=== PATIENT | male | born 1955 | race Caucasian/White ===

== ENCOUNTER → 2017-07-15 | Outpatient (CLI) | payer MEDICARE ==
--- NOTE | 2017-07-15 18:10 | RAD ---
3 views left knee radiographs 07/15/2017 Clinical indication: Left knee pain. Comparison: None. Findings: No acute fracture or traumatic malalignment. Moderate medial and mild lateral joint compartment osteophytic spurring with no significant joint space narrowing. No significant knee joint effusion. There is a small smoothly marginated calcific density at the anterior aspect of the knee articulation measuring 0.7 cm. Impression: 1. No acute fracture or traumatic malalignment. 2. Small 0.7 cm calcific density anterior aspect of the knee joint may represent an intra-articular body. 3. Degenerative changes of the knee, greatest mild to moderate, medial joint compartment
== END | disposition still patient (30) ==
LOC: RAD 14:09
PROVIDERS: ATTEND Nurse Practitioner Gerontology
DX: M17.12 Unilateral primary osteoarthritis, left knee (principal)
CPT/HCPCS: 73562

== ENCOUNTER → 2018-06-19 | Outpatient (CLI) | payer MEDICARE ==
[~2018-06-19] VITALS: Ht 180.3 cm; Wt 104.3 kg
[~2018-06-19] MED LIST: BUDE10.22 IH; LOSA100T7 PO; PROAIR HFA8.5 GM INH; TIOT18CA IH; WARF10TA45 PO; WARF7.5T48 PO
[2018-06-19 11:24] LABS: BASO % 1 % (0-3); EOS # 0.1 x10^3/uL (0.0-0.7); EOS % 3 % (0-3); HEMATOCRIT 23.7 % (39.0-53.0); HEMOGLOBIN 7.6 g/dL (13.0-17.5); LYMPH # 1.4 x10^3/uL (1.0-4.8); LYMPH % 28 % (24-48); MEAN CORPUSCULAR HEMOGLOBIN 25 pg (25-35); MEAN CORPUSCULAR HGB CONC 32 g/dL (31-37); MEAN CORPUSCULAR VOLUME 76 fL (79-100); MONO # 0.5 x10^3/uL (0.0-1.1); MONO % 10 % (0-9); NEUT # 2.9 x10^3uL (1.8-7.7); NEUT % 59 % (31-73); PLATELET COUNT 435 x10^3/uL (140-400); RED BLOOD COUNT 3.12 x10^6/uL (4.30-5.70); RED CELL DISTRIBUTION WIDTH 16.9 % (11.5-14.5)
[2018-06-19 12:22] VITALS: BP 146/69
[2018-06-19 12:45] VITALS: BP 132/74
[2018-06-19 13:45] VITALS: BP 141/65
[2018-06-19 14:22] VITALS: BP 144/64
[2018-06-19 15:00] VITALS: BP 143/73
[2018-06-19 16:22] VITALS: BP 152/74
== END ==
LOC: OPS 10:38
PROVIDERS: ATTEND Internal Medicine Gastroenterology
DX: D64.9 Anemia, unspecified (principal); M19.90 Unspecified osteoarthritis, unspecified site
CPT/HCPCS: 36415; 36430; 85025; 86850; 86900; 86901; 86920; P9016

== ENCOUNTER → 2018-07-08 | Day surgery (SDC) | payer MEDICARE ==
[~2018-07-08] MED LIST changes: +HYDROmorphone 2 MG/ML VIAL IV PRN; +IV RINGERS,LACTATED 1000ML 1,000 ML IV SCH; +LIDOCAINE 1% PF 2 ML VIAL. ID PRN; +MORPHINE SULFATE 2 MG/ML VIAL. IV PRN; +ONDANSETRON PF 4 MG/2 ML VIAL. IV PRN; +PROCHLORPERAZINE 10 MG/2 ML VIAL. IV PRN; +PROPOFOL 20 ML IV ONE; +fentaNYL PF VIAL 100 MCG/2 ML VIAL IV PRN
[2018-07-08 09:21] VITALS: BP 163/81
== END | disposition home or self-care (01) ==
LOC: ENDOS 07:20
PROVIDERS: ATTEND Internal Medicine Gastroenterology
DX: K31.7 Polyp of stomach and duodenum (principal); D50.9 Iron deficiency anemia, unspecified; I10 Essential (primary) hypertension; E11.9 Type 2 diabetes mellitus without complications; K21.9 Gastro-esophageal reflux disease without esophagitis; E53.8 Deficiency of other specified B group vitamins; Z86.72 Personal history of thrombophlebitis; Z79.01 Long term (current) use of anticoagulants; E55.9 Vitamin D deficiency, unspecified; M17.0 Bilateral primary osteoarthritis of knee; Z87.01 Personal history of pneumonia (recurrent); Z86.718 Personal history of other venous thrombosis and embolism; Z86.711 Personal history of pulmonary embolism; Z87.442 Personal history of urinary calculi; Z87.891 Personal history of nicotine dependence; Z91.041 Radiographic dye allergy status; Z79.899 Other long term (current) drug therapy; Z79.84 Long term (current) use of oral hypoglycemic drugs; Z79.2 Long term (current) use of antibiotics; Z98.890 Other specified postprocedural states
CPT/HCPCS: 43235; J2704

== ENCOUNTER → 2018-07-28 | Outpatient (CLI) | payer MEDICARE ==
[2018-07-08 09:21] VITALS: BP 163/81
[~2018-07-28] MED LIST changes: -HYDROmorphone 2 MG/ML VIAL IV PRN; -IV RINGERS,LACTATED 1000ML 1,000 ML IV SCH; -LIDOCAINE 1% PF 2 ML VIAL. ID PRN; -MORPHINE SULFATE 2 MG/ML VIAL. IV PRN; -ONDANSETRON PF 4 MG/2 ML VIAL. IV PRN; -PROCHLORPERAZINE 10 MG/2 ML VIAL. IV PRN; -PROPOFOL 20 ML IV ONE; -fentaNYL PF VIAL 100 MCG/2 ML VIAL IV PRN
--- NOTE | 2018-07-28 15:39 | RAD ---
Left lower extremity arterial ultrasound, 07/28/2018: HISTORY: Left leg swelling and lower leg ulcer Duplex evaluation of the major arteries in the left lower extremity was performed including grayscale, color-flow and spectral Doppler analysis. There are mild to moderate scattered atherosclerotic plaques. The left common femoral artery demonstrates a triphasic Doppler waveform. No significant focal velocity acceleration is seen in the left femoral or popliteal arteries to suggest high-grade focal stenosis. At one level in the mid superficial femoral artery there are sharp parallel linear echoes suggesting a widely patent stent. The patient is unclear as to his interventional/surgical history. There is moderate subcutaneous edema medially in the left thigh and to a greater degree in the left calf. The anterior tibial artery is patent demonstrating a triphasic Doppler waveform. Patent peroneal and posterior tibial arteries are evident in the right lower leg demonstrating monophasic Doppler waveforms. The dorsalis pedis artery is patent with a monophasic Doppler waveform. IMPRESSION: 1. Mild to moderate scattered atherosclerotic plaquing. 2. No duplex evidence of high-grade femoral-popliteal stenosis. 3. Three-vessel arterial runoff in the left lower leg with mild degradation of the Doppler waveforms in the left calf and foot. Electronically signed by: Xander Vladez MD (07/28/2018 3:35 PM) [facility]
--- NOTE | 2018-07-28 15:46 | RAD ---
Left lower extremity venous insufficiency ultrasound, 07/28/2018: HISTORY: Leg swelling Duplex evaluation of the greater and lesser saphenous veins in the left lower extremity was performed. There is moderate generalized subcutaneous edema. The left greater saphenous vein measures 10 mm near the saphenofemoral junction and demonstrates a reflux time of 0.4 seconds. This is not considered to be significant. An anterior accessory saphenous vein was also identified without significant reflux. In the lower thigh the greater saphenous vein is no longer visible suggesting occlusion. There are superficial varicosities in this region. There was no significant reflux evident in the lesser saphenous vein. IMPRESSION: 1. No significant reflux was identified in the greater saphenous or lesser saphenous veins. 2. Probable occlusion of the left greater saphenous vein in the distal thigh. 3. Superficial varicosities in the lower thigh. Electronically signed by: Xander Valdez MD (07/28/2018 3:43 PM) [facility]
== END | disposition home or self-care (01) ==
LOC: PMGWOUND 08:48
PROVIDERS: ATTEND Emergency Medicine Undersea and Hyperbaric Medicine
DX: E11.622 Type 2 diabetes mellitus with other skin ulcer (principal); L97.221 Non-pressure chronic ulcer of left calf limited to breakdown of skin; I10 Essential (primary) hypertension; J44.9 Chronic obstructive pulmonary disease, unspecified; K74.60 Unspecified cirrhosis of liver; K21.9 Gastro-esophageal reflux disease without esophagitis; F17.210 Nicotine dependence, cigarettes, uncomplicated; M17.0 Bilateral primary osteoarthritis of knee; Z86.711 Personal history of pulmonary embolism; Z86.718 Personal history of other venous thrombosis and embolism
CPT/HCPCS: 93926; 93971; 97597

== ENCOUNTER → 2018-07-29 | Day surgery (SDC) | payer MEDICARE ==
[~2018-07-29] MED LIST changes: +IV RINGERS,LACTATED 1000ML 1,000 ML IV SCH; +LOSA100T14 PO; -LOSA100T7 PO; +PROPOFOL 20 ML IV ONE
[2018-07-29 08:00] VITALS: BP 151/88
--- NOTE | 2018-07-29 10:16 | CONS ---
DATE OF CONSULTATION: REFERRING PHYSICIAN: Luis Enrique José M.D. REASON FOR CONSULTATION: Anemia and Crohn's. HISTORY OF PRESENT ILLNESS: A 62-year-old male whose past medical history is significant for Crohn disease, COPD, B12 deficiency, status post an ileocolonic anastomosis and history of pulmonary embolism, is seen for interval colonoscopy. He has had history of Crohn's with resections. He had been requiring blood transfusions recently. Subsequently, he was found to have hemoglobin, which is 7.4. With the continued issues, interval colonoscopy is recommended. PAST MEDICAL HISTORY: COPD, PE, tobaccoism, history of Crohn's and status post ileocolonic anastomosis. ALLERGIES: IODINE. MEDICATIONS: Include albuterol, budesonide, losartan, Spiriva, Coumadin and Remicade. FAMILY AND SOCIAL HISTORY: Former smoker and drinker. He is currently single. PAST SURGICAL HISTORY: Status post ileocolonic anastomosis and ventral hernia repair. REVIEW OF SYSTEMS: As per records. PHYSICAL EXAMINATION: GENERAL: Well-nourished, well-developed male who is alert, cooperative, in no acute distress. VITAL SIGNS: Temperature is 99.2, pulse 93, respirations 22 and pulse ox saturation 99%. HEENT EXAMINATION: Normocephalic and atraumatic head. Pupils and extraocular muscles are not tested. Sclerae are icteric. NECK: Supple. LUNGS: Clear. CARDIOVASCULAR EXAMINATION: Reveals S1 and S2, without S3, S4 or appreciable murmur. ABDOMEN: Examination reveals soft abdomen. Normal bowel sounds, without appreciable hepatosplenomegaly. EXTREMITIES: Examination reveals no cyanosis, clubbing or edema. IMPRESSION: Anemia with Crohn's. An anastomotic ulcer or recurrent Crohn is seen within the small bowel and/or colon. Certainly, it has been in the differential. Therefore, we will recommend interval colonoscopy. Risks and benefits have been discussed. The patient is willing to proceed at this time. BRAD CHÁVEZ MD DR: STEPHANIE/nicky JOB#: [id number] / [id number]
--- NOTE | 2018-07-30 13:08 | PATHOLOGY ---
[facility] Accession Number: [id number] . 01 Material submitted: . PART A: ANASTOMOTIC ULCER BIOPSY, SMALL INTESTINE PART B: RANDOM COLON BIOPSY . 01 Clinical history: . Pre-OP DX: Anemia Post-OP DX: Ulcer, dysplasia . 02 Diagnosis: A. Small intestine mucosa, anastomotic ulcer biopsy: - Mild acute and chronic inflammation and segment of acute inflammatory exudate consistent with ulcer. . B. Colonic mucosa, random colon biopsies: - No significant pathologic abnormalities. P/07/30/2018 . 02 Comment: Sections of the anastomotic ulcer biopsy reveal segments of small intestine mucosa showing mild acute and chronic inflammation and a segment of acute inflammatory exudate consistent with ulcer. There is no evidence of malignancy. Sections of the random colon biopsy reveal multiple segments of colonic mucosa. There is no evidence of a chronic destructive colitis, lymphocytic colitis, or collagenous colitis. (JPM:[facility] 07/30/2018) . 02 Electronically signed: . Akira Jensen MD, Pathologist NPI- [id number] . 01 Gross description: . A. Received in formalin labeled "Alex Garner, anastomotic ulcer BX, small intestine," are 2 segments of overton soft tissue measuring 0.9 x 0.3 x 0.3 cm in aggregate dimensions and ranging from 0.4 to 0.5 cm in maximum dimension. The specimen is submitted entirely in cassette A1. . B. Received in formalin labeled "Alex Garner, random colon BX," are multiple segments of overton soft tissue measuring 1.8 x 0.6 x 0.1 cm in aggregate dimensions. The specimen is filtered and entirely submitted in cassette B1. (TSD; 07/29/2018) TOB/TOB . 02 Pathologist provided ICD-10: K52.9, K63.3, D64.9 . 02 CPT . 706030, 758449 Specimen Comment: A courtesy copy of this report has been sent to Specimen Comment: [phone], . Specimen Comment: Report sent to / DR AMADO Performed at: [address] [facility], [place] [id number] MD Efrem De MD Phone: [phone] Performed at: [facility] [address] [place], [place] [id number] MD Akira Jensen MD Phone: [phone]
== END | disposition home or self-care (01) ==
LOC: ENDOS 05:53
PROVIDERS: ATTEND Internal Medicine Gastroenterology
DX: K57.30 Diverticulosis of large intestine without perforation or abscess without bleeding (principal); K64.0 First degree hemorrhoids; D50.9 Iron deficiency anemia, unspecified; K52.89 Other specified noninfective gastroenteritis and colitis; I10 Essential (primary) hypertension; J44.9 Chronic obstructive pulmonary disease, unspecified; E53.8 Deficiency of other specified B group vitamins; K21.9 Gastro-esophageal reflux disease without esophagitis; Z91.041 Radiographic dye allergy status; I87.2 Venous insufficiency (chronic) (peripheral); E11.622 Type 2 diabetes mellitus with other skin ulcer; L97.328 Non-pressure chronic ulcer of left ankle with other specified severity; Z86.72 Personal history of thrombophlebitis; E55.9 Vitamin D deficiency, unspecified; E66.9 Obesity, unspecified; Z68.32 Body mass index [BMI] 32.0-32.9, adult; M17.0 Bilateral primary osteoarthritis of knee; Z86.711 Personal history of pulmonary embolism; Z87.01 Personal history of pneumonia (recurrent); Z86.718 Personal history of other venous thrombosis and embolism; Z87.442 Personal history of urinary calculi; Z87.891 Personal history of nicotine dependence; Z79.899 Other long term (current) drug therapy; Z98.890 Other specified postprocedural states; Z72.89 Other problems related to lifestyle; Z79.84 Long term (current) use of oral hypoglycemic drugs
CPT/HCPCS: 45380; 88305; J2704; 45385

== ENCOUNTER → 2018-08-03 | Outpatient (CLI) | payer MEDICARE ==
[2018-07-29 08:00] VITALS: BP 151/88
[~2018-08-03] MED LIST changes: -IV RINGERS,LACTATED 1000ML 1,000 ML IV SCH; -PROPOFOL 20 ML IV ONE
== END | disposition home or self-care (01) ==
LOC: PMGWOUND 08:46
PROVIDERS: ATTEND Emergency Medicine Undersea and Hyperbaric Medicine
DX: E11.622 Type 2 diabetes mellitus with other skin ulcer (principal); L97.221 Non-pressure chronic ulcer of left calf limited to breakdown of skin; I87.012 Postthrombotic syndrome with ulcer of left lower extremity; I10 Essential (primary) hypertension; J44.9 Chronic obstructive pulmonary disease, unspecified; M17.12 Unilateral primary osteoarthritis, left knee; M17.11 Unilateral primary osteoarthritis, right knee; F17.210 Nicotine dependence, cigarettes, uncomplicated; K74.60 Unspecified cirrhosis of liver; K21.9 Gastro-esophageal reflux disease without esophagitis; E66.9 Obesity, unspecified; Z68.32 Body mass index [BMI] 32.0-32.9, adult; Z85.820 Personal history of malignant melanoma of skin; Z86.718 Personal history of other venous thrombosis and embolism
CPT/HCPCS: 29581

== ENCOUNTER → 2018-08-06 | Outpatient (CLI) | payer MEDICARE ==
[2018-07-29 08:00] VITALS: BP 151/88
[~2018-08-06] MED LIST changes: +ALBU2.5V8 INH; -PROAIR HFA8.5 GM INH; +WARF-31 PO; +WARF1TAB69 PO
== END | disposition home or self-care (01) ==
LOC: PMGWOUND 12:03
PROVIDERS: ATTEND Emergency Medicine Undersea and Hyperbaric Medicine
DX: E11.622 Type 2 diabetes mellitus with other skin ulcer (principal); L97.221 Non-pressure chronic ulcer of left calf limited to breakdown of skin; I87.012 Postthrombotic syndrome with ulcer of left lower extremity; I10 Essential (primary) hypertension; F32.9 Major depressive disorder, single episode, unspecified; J44.9 Chronic obstructive pulmonary disease, unspecified; F41.9 Anxiety disorder, unspecified; M17.0 Bilateral primary osteoarthritis of knee; E78.5 Hyperlipidemia, unspecified; K21.9 Gastro-esophageal reflux disease without esophagitis; F17.210 Nicotine dependence, cigarettes, uncomplicated; I25.2 Old myocardial infarction; E66.9 Obesity, unspecified; Z68.32 Body mass index [BMI] 32.0-32.9, adult; Z85.820 Personal history of malignant melanoma of skin; Z86.718 Personal history of other venous thrombosis and embolism
CPT/HCPCS: 29581

== ENCOUNTER → 2018-08-13 | Outpatient (CLI) | payer MEDICARE ==
[2018-07-29 08:00] VITALS: BP 151/88
[~2018-08-13] MED LIST changes: -ALBU2.5V8 INH; +PROAIR HFA8.5 GM INH; -WARF-31 PO; -WARF1TAB69 PO
--- NOTE | 2018-08-13 09:39 | RAD ---
CHEST PA LATERAL CLINICAL INDICATION: SOA, HX OF DVT/PE COMPARISON: None FINDINGS: Heart is normal in size. Bilateral prominent bronchial vascular markings are seen. Increased interstitial opacities. No focal consolidation. No pneumothorax or pleural effusion. Moderate dextro sclerosis of the lower thoracic spine. Otherwise, visualized bony thorax is within normal limits. IMPRESSION: 1. Findings of mild interstitial pulmonary edema or atypical/viral infection. Electronically signed by: Chandrakant Ansari DO (08/13/2018 9:35 AM) [facility]
--- NOTE | 2018-08-13 10:04 | RAD ---
Nuclear medicine ventilation/perfusion lung scan INDICATION: short of breath for 2-3 weeks. History of DVT and PE about 10 years ago. 8.8mCi Xe133 and 6.6mCi Tc99m MAA. Technique: Multiplanar perfusion images are obtained. Sequential ventilation images are obtained. Findings There is retention of activity in both lungs, compatible with air trapping. Heterogeneous perfusion activity distribution throughout both lungs. Numerous nonsegmental peripheral perfusion defects are identified throughout both lungs. Overall this appears fairly well matched on the anterior and posterior projections. Impression: Multiple nonsegmental perfusion defects throughout both lungs. Exam is intermediate probability for pulmonary embolism. Pulmonary embolism is not excludable. Electronically signed by: Rajan Garcia MD (08/13/2018 10:00 AM) [facility]
== END | disposition home or self-care (01) ==
LOC: NM 08:11
PROVIDERS: ATTEND Internal Medicine Gastroenterology
DX: R06.02 Shortness of breath (principal); F17.200 Nicotine dependence, unspecified, uncomplicated; Z86.718 Personal history of other venous thrombosis and embolism; Z86.711 Personal history of pulmonary embolism
CPT/HCPCS: 71046; 78582; 96374; A9540; A9558

== ENCOUNTER → 2018-08-13 | Outpatient (CLI) | payer MEDICARE ==
[2018-07-29 08:00] VITALS: BP 151/88
[~2018-08-13] MED LIST changes: +WARF-31 PO; +WARF1TAB69 PO
== END | disposition home or self-care (01) ==
LOC: PMGWOUND 10:11
PROVIDERS: ATTEND Emergency Medicine Undersea and Hyperbaric Medicine
DX: E11.622 Type 2 diabetes mellitus with other skin ulcer (principal); L97.221 Non-pressure chronic ulcer of left calf limited to breakdown of skin; I87.012 Postthrombotic syndrome with ulcer of left lower extremity; I10 Essential (primary) hypertension; J44.9 Chronic obstructive pulmonary disease, unspecified; M17.12 Unilateral primary osteoarthritis, left knee; M17.11 Unilateral primary osteoarthritis, right knee; F41.9 Anxiety disorder, unspecified; E78.5 Hyperlipidemia, unspecified; F32.9 Major depressive disorder, single episode, unspecified; I25.2 Old myocardial infarction; F17.210 Nicotine dependence, cigarettes, uncomplicated; K21.9 Gastro-esophageal reflux disease without esophagitis; E66.9 Obesity, unspecified; Z68.32 Body mass index [BMI] 32.0-32.9, adult; Z85.820 Personal history of malignant melanoma of skin; Z86.711 Personal history of pulmonary embolism; Z86.718 Personal history of other venous thrombosis and embolism
CPT/HCPCS: 99214; G0463

== ENCOUNTER 2018-08-17 15:56 | Inpatient (IN) | payer MEDICARE ==
[~2018-08-17] VITALS: Ht 180.3 cm; Wt 106.3 kg
[~2018-08-17 15:56] MED LIST changes: +ALBU2.5V8 INH; -PROAIR HFA8.5 GM INH; -WARF-31 PO; -WARF1TAB69 PO
--- NOTE | 2018-08-17 16:22 | PHYS DOC ---
Past Medical History Past Medical History: COPD, DVT, Gallstones, Hypertension, Kidney Stone Additional Past Medical Histor: DVT'S Past Surgical History: Other Additional Past Surgical Histo: COLON RESECTION Alcohol Use: None Drug Use: None Adult General Chief Complaint Chief Complaint: SHORTNESS OF BREATH HPI HPI Patient is a 62 year old male who presents with shortness of breath. Patient has been having the symptoms for approximately the past 2 weeks. Had a VQ scan performed on August 13, 2018 that was intermediate probability for pulmonary embolism. Patient is on Coumadin, long-standing, for history of previous DVTs. Patient was seen at his GI specialist today and sent to the emergency department due to low oxygen saturation. Patient denies any chest pain or palpitation. Reports that exertion does make the shortness of breath worse. Rest and oxygen makes it better. Patient also has a history of COPD and asthma. No previous history of pulmonary embolism.[] Review of Systems Review of Systems Constitutional: Denies fever or chills [] Eyes: Denies change in visual acuity, redness, or eye pain [] HENT: Denies nasal congestion or sore throat [] Respiratory: See history of present illness[] Cardiovascular: No chest pain or palpitations[] GI: Denies abdominal pain, nausea, vomiting, bloody stools or diarrhea [] : Denies dysuria or hematuria [] Musculoskeletal: Denies back pain or joint pain [] Integument: Denies rash or new skin lesions, has lower extremity lesions that are being followed by wound care clinic [] Neurologic: Denies headache, focal weakness or sensory changes [] Endocrine: Denies polyuria or polydipsia [] All other systems were reviewed and found to be within normal limits, except as documented in this note. Allergies Allergies Allergies Coded Allergies Type Severity Reaction Last Updated Verified Iodinated Contrast- Oral and IV Dye Allergy Severe Shortness of Air 07/29/18 Yes Physical Exam Physical Exam Constitutional: Well developed, well nourished, mild distress with increased work of breathing, non-toxic appearance. [] HENT: Normocephalic, atraumatic, bilateral external ears normal, oropharynx moist, no oral exudates, nose normal. [] Eyes: PERRLA, EOMI, conjunctiva normal, no discharge. [] Neck: Normal range of motion, no tenderness, supple, no stridor. [] Cardiovascular:Heart rate regular rhythm, no murmur [] Lungs & Thorax: Bilateral breath sounds clear to auscultation [] Abdomen: Bowel sounds normal, soft, no tenderness, no masses, no pulsatile masses. [] Skin: Warm, dry, no erythema, no rash. Bandaged wounds on lower extremities[] Back: No tenderness, no CVA tenderness. [] Extremities: No tenderness, no cyanosis, no clubbing, ROM intact, no edema. [] Neurologic: Alert and oriented X 3, normal motor function, normal sensory function, no focal deficits noted. [] Psychologic: Affect normal, judgement normal, mood normal. [] Current Patient Data Vital Signs Vital Signs Date Time Temp Pulse Resp B/P (MAP) Pulse Ox O2 Delivery O2 Flow Rate FiO2 08/17/18 16:58 92 191/101 (131) 100 Room Air 08/17/18 16:03 99.7 26 6.0 99.7 Lab Values Laboratory Tests Test 08/17/18 16:10 White Blood Count 7.9 x10^3/uL (4.0-11.0) Red Blood Count 4.41 x10^6/uL (4.30-5.70) Hemoglobin 8.8 g/dL (13.0-17.5) L Hematocrit 29.2 % (39.0-53.0) L Mean Corpuscular Volume 66 fL (79-100) L Mean Corpuscular Hemoglobin 20 pg (25-35) L Mean Corpuscular Hemoglobin Concent 30 g/dL (31-37) L Red Cell Distribution Width 22.2 % (11.5-14.5) H Platelet Count 411 x10^3/uL (140-400) H Neutrophils (%) (Auto) 56 % (31-73) Lymphocytes (%) (Auto) 29 % (24-48) Monocytes (%) (Auto) 13 % (0-9) H Eosinophils (%) (Auto) 2 % (0-3) Basophils (%) (Auto) 1 % (0-3) Neutrophils # (Auto) 4.4 x10^3uL (1.8-7.7) Lymphocytes # (Auto) 2.3 x10^3/uL (1.0-4.8) Monocytes # (Auto) 1.0 x10^3/uL (0.0-1.1) Eosinophils # (Auto) 0.1 x10^3/uL (0.0-0.7) Basophils # (Auto) 0.1 x10^3/uL (0.0-0.2) Platelet Estimate Pending Sodium Level 142 mmol/L (136-145) Potassium Level 3.1 mmol/L (3.5-5.1) L Chloride Level 102 mmol/L (98-107) Carbon Dioxide Level 35 mmol/L (21-32) H Anion Gap 5 (6-14) L Blood Urea Nitrogen 15 mg/dL (8-26) Creatinine 0.9 mg/dL (0.7-1.3) Estimated GFR (Cockcroft-Gault) 86.1 BUN/Creatinine Ratio 17 (6-20) Glucose Level 108 mg/dL (70-99) H Calcium Level 9.2 mg/dL (8.5-10.1) Total Bilirubin 0.7 mg/dL (0.2-1.0) Aspartate Amino Transferase (AST) 23 U/L (15-37) Alanine Aminotransferase (ALT) 27 U/L (16-63) Alkaline Phosphatase 66 U/L (46-116) Troponin I Quantitative 0.020 ng/mL (0.000-0.055) EA-Hmj-F-Type Natriuretic Peptide 349 pg/mL (0-124) H Total Protein 8.3 g/dL (6.4-8.2) H Albumin 3.8 g/dL (3.4-5.0) Albumin/Globulin Ratio 0.8 (1.0-1.7) L Laboratory Tests 08/17/18 16:10 Laboratory Tests 08/17/18 16:10 EKG EKG EKG shows a sinus rhythm at 95 bpm, occasional PVC, normal axis, QTC 420 ms.[] Radiology/Procedures Radiology/Procedures Chest x-ray shows no acute disease[] Course & Med Decision Making Course & Med Decision Making Pertinent Labs and Imaging studies reviewed. (See chart for details) Medical decision making: Patient with intermediate probability pulmonary embolism/VQ study on 08/13/2018. Noted to be hypoxic in GI office. Consultation was made with his primary care physician for admission. Patient is being given breathing treatments as well given his history of COPD.[] Dragon Disclaimer Dragon Disclaimer This electronic medical record was generated, in whole or in part, using a voice recognition dictation system. Departure Departure Impression: Primary Impression: Pulmonary embolism Additional Impressions: Hypoxia COPD (chronic obstructive pulmonary disease) Disposition: 09 ADMITTED INPATIENT Admitting Physician: Luis Enrique José Condition: GUARDED Referrals: LUIS ENRIQUE JOSÉ MD (PCP) Problem Qualifiers Primary Impression: Pulmonary embolism Pulmonary embolism type: unspecified Chronicity: unspecified Acute cor pulmonale presence: without acute cor pulmonale Qualified Codes: I26.99 - Other pulmonary embolism without acute cor pulmonale Additional Impressions: COPD (chronic obstructive pulmonary disease) COPD type: unspecified COPD Qualified Codes: J44.9 - Chronic obstructive pulmonary disease, unspecified KEZIA BORRERO DO Aug 17, 2018 16:22
[2018-08-17 16:41] LABS: BASO # 0.1 x10^3/uL (0.0-0.2); BASO % 1 % (0-3); EOS # 0.1 x10^3/uL (0.0-0.7); EOS % 2 % (0-3); HEMATOCRIT 29.2 % (39.0-53.0); HEMOGLOBIN 8.8 g/dL (13.0-17.5); LYMPH # 2.3 x10^3/uL (1.0-4.8); LYMPH % 29 % (24-48); MEAN CORPUSCULAR HEMOGLOBIN 20 pg (25-35); MEAN CORPUSCULAR HGB CONC 30 g/dL (31-37); MEAN CORPUSCULAR VOLUME 66 fL (79-100); MONO % 13 % (0-9); NEUT # 4.4 x10^3uL (1.8-7.7); NEUT % 56 % (31-73); PLATELET COUNT 411 x10^3/uL (140-400); RED BLOOD COUNT 4.41 x10^6/uL (4.30-5.70); RED CELL DISTRIBUTION WIDTH 22.2 % (11.5-14.5); WHITE BLOOD COUNT 7.9 x10^3/uL (4.0-11.0)
[2018-08-17 16:44] LABS: CALCIUM 9.2 mg/dL (8.5-10.1); CREATININE 0.9 mg/dL (0.7-1.3); GFR 86.1; POTASSIUM 3.1 mmol/L (3.5-5.1)
[2018-08-17 16:50] LABS: ALBUMIN 3.8 g/dL (3.4-5.0); ALBUMIN/GLOBULIN RATIO 0.8 (1.0-1.7); TOTAL BILIRUBIN 0.7 mg/dL (0.2-1.0); TOTAL PROTEIN 8.3 g/dL (6.4-8.2)
[2018-08-17 17:09] LABS: BASE EXCESS COOX 8 mmol/L (-3-3); HCO3 COOX 34 mmol/L (21-28); METHEMOGLOBIN 0.2 % (0.0-1.9); OXYHEMOGLOBIN 91.2 %; PO2 COOX 146 mmHg (65-108); SAT O2 COOX 98 % (92-99)
--- NOTE | 2018-08-17 17:13 | RAD ---
Examination: PORTABLE CHEST 1V History: ER PATIENT. SHORTNESS OF AIR TODAY. HX OF HTN, COPD. RECENT DX PE ON PRIOR CT. PRIOR XRAY. Comparison/Correlation: 08/13/2018 two-view chest x-ray exam Findings: Portable upright frontal view chest was obtained. Heart size is normal. No infiltrate or pleural effusion. Dextroconvexity of the lower thoracic spine is present. No pneumothorax. Impression: No active disease. Electronically signed by: Hi Lugo MD (08/17/2018 5:10 PM) [facility]
[2018-08-17 17:25] LABS: PCO2 COOX 60 mmHg (35-46)
--- NOTE | 2018-08-17 17:26 | EKG ---
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
[2018-08-17] MEDS ORDERED: ONDANSETRON PF 4 MG/2 ML VIAL. IV PRN (17:30)
[2018-08-17] MEDS ORDERED: ACETAMINOPHEN 325 MG TABLET. PO PRN (17:30)
[2018-08-17 17:53] LABS: PROTHROMBIN TIME PATIENT 15.2 SEC (11.7-14.0)
[2018-08-17 19:00] VITALS: BP 157/79
[2018-08-17] MEDS: IPRATRPIUM/ALBUTEROL 0.5/2.5MG 3 ML NEBU. NEB SCH ×2 (20:05→23:38)
[2018-08-17 20:50] LABS: PLT ESTIMATE ADEQUATE (ADEQUATE)
[2018-08-17 20:52] LABS: ANISOCYTOSIS MOD; HYPOCHROMIA MARKED; MICROCYTOSIS MARKED; POIKILOCYTOSIS SLIGHT
[2018-08-17 20:53] LABS: OVALOCYTES FEW; SPHEROCYTES OCC; TARGET CELLS OCC
[2018-08-17 23:00] VITALS: BP 130/68
[2018-08-18] VITALS (11 sets, daily range): BP systolic 89–156; BP diastolic 63–80
[2018-08-18 04:11] LABS: BASO # 0.1 x10^3/uL (0.0-0.2); BASO % 2 % (0-3); EOS # 0.2 x10^3/uL (0.0-0.7); EOS % 3 % (0-3); HEMATOCRIT 25.3 % (39.0-53.0); HEMOGLOBIN 7.5 g/dL (13.0-17.5); LYMPH % 34 % (24-48); MEAN CORPUSCULAR HEMOGLOBIN 20 pg (25-35); MEAN CORPUSCULAR HGB CONC 30 g/dL (31-37); MEAN CORPUSCULAR VOLUME 67 fL (79-100); MONO # 0.8 x10^3/uL (0.0-1.1); MONO % 14 % (0-9); NEUT # 2.8 x10^3uL (1.8-7.7); NEUT % 47 % (31-73); PLATELET COUNT 331 x10^3/uL (140-400); RED BLOOD COUNT 3.76 x10^6/uL (4.30-5.70); WHITE BLOOD COUNT 5.9 x10^3/uL (4.0-11.0)
[2018-08-18 04:30] LABS: ALBUMIN 3.1 g/dL (3.4-5.0); ALBUMIN/GLOBULIN RATIO 0.8 (1.0-1.7); CALCIUM 8.5 mg/dL (8.5-10.1); CREATININE 0.9 mg/dL (0.7-1.3); GFR 86.1; POTASSIUM 3.5 mmol/L (3.5-5.1); TOTAL BILIRUBIN 0.7 mg/dL (0.2-1.0); TOTAL PROTEIN 6.9 g/dL (6.4-8.2)
[2018-08-18] MEDS ORDERED: WARF-31 PO (05:58)
[2018-08-18] MEDS ORDERED: WARF1TAB69 PO (05:58)
--- NOTE | 2018-08-18 08:35 | PDOC ---
Provider Note Provider Note [id number] KANWAL AMADO MD Aug 18, 2018 08:35
[2018-08-18] MEDS: BUDESONIDE 0.5 MG/2 ML NEBU. NEB SCH ×3 (08:44→19:40)
[2018-08-18] MEDS: IPRATRPIUM/ALBUTEROL 0.5/2.5MG 3 ML NEBU. NEB SCH ×4 (08:45→19:40)
--- NOTE | 2018-08-18 09:02 | HP ---
ADMIT DATE: 08/17/2018 CHIEF COMPLAINT: Suspected blood clots. HISTORY OF PRESENT ILLNESS: A 62-year-old white male, patient of Dr. Jg Murphy at [facility] and Dr. Pro regarding his Crohn's disease and Dr. Pro ordered a V/Q scan about a week ago, which raised the reasonable probability of bilateral pulmonary emboli. He is unable to do CT studies because of dye contrast allergy. He is continued on his warfarin dose at the usual dose, but the INR yesterday was only 1.2. He has had increasing dyspnea in the last few days, came to the ER, was started on Lovenox and feeling a little better at this time. He denies fever, chills, hemoptysis, sputum production or suspicious chest pain. PAST HISTORY: Long diagnosis of Crohn's for which he is taking Remicade every 2 months. His warfarin dose is 10 mg daily. He is on inhalers per Dr. Murphy for his COPD. SOCIAL HISTORY: He is single. He is employed. He quit smoking a few years ago. Nondrinker. FAMILY HISTORY: Unremarkable. REVIEW OF SYSTEMS: No other complaints. OBJECTIVE: ENT: Moderate pallor, otherwise all within normal limits. NECK: No masses, nodes or bruits. LUNGS: Decreased breath sounds, a few scattered expiratory wheezes. CARDIOVASCULAR: Regular rate. No irregular beat, murmur or tachycardia. ABDOMEN: Soft, benign and mildly tender diffusely. EXTREMITIES: 2+ clubbing and mildly decreased pedal pulses. No joint or skin lesions notable. NEUROLOGIC: Physiologic. ASSESSMENT: 1. Suspected recent bilateral pulmonary emboli based on V/Q scan, intermediate probability. This was occurring despite the patient being therapeutic with warfarin. 2. Ongoing Crohn's disease with recent ongoing gastrointestinal blood loss of unclear etiology. Dr. Pro has been evaluating just recently for this. 3. Hypoprothrombinemia despite warfarin dosage. 4. Chronic obstructive pulmonary disease with secondary hypoxia aggravated by bilateral pulmonary emboli. PLAN: Lovenox until his warfarin levels are therapeutic again. May need transfusions of packed cells, but we will follow for now. GI and Pulmonary consultation. Supportive breathing treatments. KANWAL AMADO MD DR: JILL/nicky JOB#: [id number] / [id number]
--- NOTE | 2018-08-18 11:23 | PDOC2 ---
GI CONSULT Reason For Consult: GI Bleed HPI: HPI: 62 y/o male w/ h/o Crohn's disease on Remicade, anemia requiring recent transfusion on B12 who had EGD and colonoscopy w/ Dr. Pro in 07/2018 - can view pathology report in [facility] which indicates anastomotic ulcer and normal random colon biopsies. Prior to scopes had some black stools - none for several weeks. H/o DVT on Coumadin (INR 1.2) w/ increasing SOA and recent abnormal VQ scan (indeterminate probability for PE). Denies n/v, reflux/heartburn, dysphagia, change in appetite, abd pain, hematochezia, and melena. Chronic diarrhea with Crohn's - unchanged. Weight loss of 50 pounds in 2 years - mostly intentional. Reports two previous resections for Crohn's. Also reports was recently told his gallbladder needs to come out. No liver or pancreas history. Hgb 8.8 to 7.5 (was 7.6) in 06/2018, MCV 67, BUN 12. Says due for Remicade on Fri. Lovenox added, pulm consult pending. PMH: PMH: PE, DVT, HTN, Crohn's, nephrolithiasis, ?cholelithiasis, ileocolic resection, ventral hernia repair FH: Family History: Cancer (mother - unknown type) Social History: Smoke: Quit ALCOHOL: none Drugs: None ROS: GEN: Denies fevers, chills, sweats HEENT: Denies blurred vision, sore throat CV: Denies chest pain RESP: +SOA GI: Per HPI : Denies hematuria, dysuria ENDO: +weight loss NEURO: Denies confusion, dizziness MSK: Denies weakness, joint pain/swelling SKIN: Denies jaundice, pruritus Vitals: Vitals: Vital Signs Date Time Temp Pulse Resp B/P (MAP) Pulse Ox O2 Delivery O2 Flow Rate FiO2 08/18/18 10:39 Nasal Cannula 5.0 08/18/18 08:45 96 08/18/18 07:00 98.7 84 20 89/74 (79) 98.7 Labs: Labs: Laboratory Tests Test 08/17/18 16:10 08/17/18 16:15 08/18/18 03:20 White Blood Count 7.9 x10^3/uL (4.0-11.0) 5.9 x10^3/uL (4.0-11.0) Red Blood Count 4.41 x10^6/uL (4.30-5.70) 3.76 x10^6/uL (4.30-5.70) Hemoglobin 8.8 g/dL (13.0-17.5) 7.5 g/dL (13.0-17.5) Hematocrit 29.2 % (39.0-53.0) 25.3 % (39.0-53.0) Mean Corpuscular Volume 66 fL (79-100) 67 fL (79-100) Mean Corpuscular Hemoglobin 20 pg (25-35) 20 pg (25-35) Mean Corpuscular Hemoglobin Concent 30 g/dL (31-37) 30 g/dL (31-37) Red Cell Distribution Width 22.2 % (11.5-14.5) 22.0 % (11.5-14.5) Platelet Count 411 x10^3/uL (140-400) 331 x10^3/uL (140-400) Neutrophils (%) (Auto) 56 % (31-73) 47 % (31-73) Lymphocytes (%) (Auto) 29 % (24-48) 34 % (24-48) Monocytes (%) (Auto) 13 % (0-9) 14 % (0-9) Eosinophils (%) (Auto) 2 % (0-3) 3 % (0-3) Basophils (%) (Auto) 1 % (0-3) 2 % (0-3) Neutrophils # (Auto) 4.4 x10^3uL (1.8-7.7) 2.8 x10^3uL (1.8-7.7) Lymphocytes # (Auto) 2.3 x10^3/uL (1.0-4.8) 2.0 x10^3/uL (1.0-4.8) Monocytes # (Auto) 1.0 x10^3/uL (0.0-1.1) 0.8 x10^3/uL (0.0-1.1) Eosinophils # (Auto) 0.1 x10^3/uL (0.0-0.7) 0.2 x10^3/uL (0.0-0.7) Basophils # (Auto) 0.1 x10^3/uL (0.0-0.2) 0.1 x10^3/uL (0.0-0.2) Platelet Estimate Adequate (ADEQUATE) Hypochromasia Marked Poikilocytosis Slight Anisocytosis Mod Microcytosis Marked Spherocytes Occ Target Cells Occ Ovalocytes Few Prothrombin Time 15.2 SEC (11.7-14.0) Prothromb Time International Ratio 1.2 (0.8-1.1) Sodium Level 142 mmol/L (136-145) 146 mmol/L (136-145) Potassium Level 3.1 mmol/L (3.5-5.1) 3.5 mmol/L (3.5-5.1) Chloride Level 102 mmol/L (98-107) 105 mmol/L (98-107) Carbon Dioxide Level 35 mmol/L (21-32) 39 mmol/L (21-32) Anion Gap 5 (6-14) 2 (6-14) Blood Urea Nitrogen 15 mg/dL (8-26) 12 mg/dL (8-26) Creatinine 0.9 mg/dL (0.7-1.3) 0.9 mg/dL (0.7-1.3) Estimated GFR (Cockcroft-Gault) 86.1 86.1 BUN/Creatinine Ratio 17 (6-20) 13 (6-20) Glucose Level 108 mg/dL (70-99) 72 mg/dL (70-99) Calcium Level 9.2 mg/dL (8.5-10.1) 8.5 mg/dL (8.5-10.1) Total Bilirubin 0.7 mg/dL (0.2-1.0) 0.7 mg/dL (0.2-1.0) Aspartate Amino Transf (AST/SGOT) 23 U/L (15-37) 20 U/L (15-37) Alanine Aminotransferase (ALT/SGPT) 27 U/L (16-63) 26 U/L (16-63) Alkaline Phosphatase 66 U/L (46-116) 49 U/L (46-116) Troponin I Quantitative 0.020 ng/mL (0.000-0.055) YY-Ceq-F-Type Natriuretic Peptide 349 pg/mL (0-124) Total Protein 8.3 g/dL (6.4-8.2) 6.9 g/dL (6.4-8.2) Albumin 3.8 g/dL (3.4-5.0) 3.1 g/dL (3.4-5.0) Albumin/Globulin Ratio 0.8 (1.0-1.7) 0.8 (1.0-1.7) O2 Saturation 98 % (92-99) Arterial Blood pH 7.38 (7.35-7.45) Arterial Blood pCO2 at Patient Temp 60 mmHg (35-46) Arterial Blood pO2 at Patient Temp 146 mmHg (65-108) Arterial Blood HCO3 34 mmol/L (21-28) Arterial Blood Base Excess 8 mmol/L (-3-3) Oxyhemoglobin 91.2 % Methemoglobin 0.2 % (0.0-1.9) Carbon Monoxide, Quantitative 7.1 % (0.0-1.9) FiO2 21 Allergies: Coded Allergies: Iodinated Contrast- Oral and IV Dye (Verified Allergy, Severe, Shortness of Air, 07/29/18) Medications: Current Medications Medications (Trade) Dose Ordered Sig/Naomie Route PRN Reason Start Time Stop Time Status Last Admin Dose Admin Albuterol/ Ipratropium (Duoneb) 3 ml Q6HRS NEB 08/17/18 18:00 08/18/18 08:45 Enoxaparin Sodium (Lovenox 100mg Syringe) 100 mg 1X ONCE SQ 08/17/18 17:30 08/17/18 17:31 DC 08/17/18 18:15 Acetaminophen (Tylenol) 650 mg PRN Q4HRS PRN PO FEVER 08/17/18 17:30 08/18/18 17:29 08/18/18 06:24 Enoxaparin Sodium (Lovenox 100mg Syringe) 100 mg Q12HR SQ 08/18/18 09:00 08/18/18 10:28 Budesonide (Pulmicort) 0.5 mg RTBID NEB 08/18/18 08:45 08/18/18 08:44 Imaging: Imaging: CXR Impression: No active disease. PE: GEN: NAD HEENT: Atraumatic, PERRL LUNGS: 5L NC HEART: RRR ABD: NABS, soft, round, non-tender EXTREMITY: BLE edema - says supposed to have an echocardiogram SKIN: LLE wound w/ bandage - says has been seeing wound care NEURO/PSYCH: A & O 3 A/P: A/P: Suspected PEs/indeterminate VQ scan Coumadin therapy - INR 1.2 Anemia - required transfusion recently, EGD and colonoscopy last month H/o black stools - resolved for several weeks Crohn's - on Remicade, h/o ileocolic resection w/ anastomotic ulcer on recent colonoscopy ?gallstones -- Reviewed w/ Dr. Pro - ?need thrombolytic therapy - will order 1 unit pRBCs and monitor. Will review EGD and colonoscopy procedure reports. 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 Monitor labs and for bleeding. HEATHER KATE Aug 18, 2018 11:23
[2018-08-18 15:40] LABS: HEMATOCRIT 25.7 % (39.0-53.0); HEMOGLOBIN 7.7 g/dL (13.0-17.5)
[2018-08-18] MEDS ORDERED: WARFARIN 5 MG TABLET. PO SCH ×2 (16:00)
[2018-08-18] MEDS: FAMOTIDINE 20 MG TABLET. PO SCH (20:40)
[2018-08-18 23:00] LABS: HEMATOCRIT 26.9 % (39.0-53.0); HEMOGLOBIN 8.1 g/dL (13.0-17.5)
[2018-08-19] MEDS: IPRATRPIUM/ALBUTEROL 0.5/2.5MG 3 ML NEBU. NEB SCH ×4 (01:47→19:19)
[2018-08-19 03:00] VITALS: BP 135/78
[2018-08-19 07:00] VITALS: BP 138/66
--- NOTE | 2018-08-19 08:29 | PDOC ---
Provider Note Provider Note vss, no temp or tachy- inr pending, hb up after 1 prbc-, he feels less dyspneic als- no sputum, pain- still has some melena- will do daily inr, dc lovenox when > 1.9, follow hb KANWAL AMADO MD Aug 19, 2018 08:29
[2018-08-19] MEDS: BUDESONIDE 0.5 MG/2 ML NEBU. NEB SCH ×3 (08:50→19:18)
[2018-08-19 10:58] VITALS: BP 148/77
--- NOTE | 2018-08-19 13:00 | PDOC ---
Subjective: Subjective: Was told by the nurse that his stool looked black - he didn't look but thinks Imodium is the cause and wants to know what Dr. Pro thinks. Also wants more to eat than clears. Objective: Vital Signs: Vital Signs Date Time Temp Pulse Resp B/P (MAP) Pulse Ox O2 Delivery O2 Flow Rate FiO2 08/19/18 12:37 99 Nasal Cannula 3.0 08/19/18 10:58 98.6 85 16 148/77 (100) 98.6 Labs: Laboratory Tests Test 08/18/18 15:22 08/18/18 22:55 Hemoglobin 7.7 g/dL 8.1 g/dL Hematocrit 25.7 % 26.9 % Mean Corpuscular Hemoglobin Concent 30 g/dL PE: GEN: NAD LUNGS: NC HEART: RRR ABD: S/ND/NT NEURO/PSYCH: A & O 3 A/P: Suspected PEs/indeterminate VQ scan - on Coumadin, Lovenox Anemia - stable w/ transfusion Black stool Crohn's - on Remicade, h/o ileocolic resection w/ anastomotic ulcer on recent colonoscopy -- Await pulmonology thoughts. Will review his concerns w/ Imodium with Dr. Pro. ?advance diet beyond clears HEATHER KATE Aug 19, 2018 13:00
[2018-08-19 15:00] VITALS: BP 137/71
--- NOTE | 2018-08-19 16:35 | PDOC ---
PULMONARY PROGRESS NOTES Vitals Vital Signs Date Time Temp Pulse Resp B/P (MAP) Pulse Ox O2 Delivery O2 Flow Rate FiO2 08/19/18 15:00 98.7 83 16 137/71 (93) 92 Nasal Cannula 2.0 98.7 Labs Laboratory Tests Test 08/18/18 03:20 08/18/18 15:22 08/18/18 22:55 White Blood Count 5.9 x10^3/uL (4.0-11.0) Red Blood Count 3.76 x10^6/uL (4.30-5.70) Hemoglobin 7.5 g/dL (13.0-17.5) 7.7 g/dL (13.0-17.5) 8.1 g/dL (13.0-17.5) Hematocrit 25.3 % (39.0-53.0) 25.7 % (39.0-53.0) 26.9 % (39.0-53.0) Mean Corpuscular Volume 67 fL (79-100) Mean Corpuscular Hemoglobin 20 pg (25-35) Mean Corpuscular Hemoglobin Concent 30 g/dL (31-37) 30 g/dL (31-37) Red Cell Distribution Width 22.0 % (11.5-14.5) Platelet Count 331 x10^3/uL (140-400) Neutrophils (%) (Auto) 47 % (31-73) Lymphocytes (%) (Auto) 34 % (24-48) Monocytes (%) (Auto) 14 % (0-9) Eosinophils (%) (Auto) 3 % (0-3) Basophils (%) (Auto) 2 % (0-3) Neutrophils # (Auto) 2.8 x10^3uL (1.8-7.7) Lymphocytes # (Auto) 2.0 x10^3/uL (1.0-4.8) Monocytes # (Auto) 0.8 x10^3/uL (0.0-1.1) Eosinophils # (Auto) 0.2 x10^3/uL (0.0-0.7) Basophils # (Auto) 0.1 x10^3/uL (0.0-0.2) Sodium Level 146 mmol/L (136-145) Potassium Level 3.5 mmol/L (3.5-5.1) Chloride Level 105 mmol/L (98-107) Carbon Dioxide Level 39 mmol/L (21-32) Anion Gap 2 (6-14) Blood Urea Nitrogen 12 mg/dL (8-26) Creatinine 0.9 mg/dL (0.7-1.3) Estimated GFR (Cockcroft-Gault) 86.1 BUN/Creatinine Ratio 13 (6-20) Glucose Level 72 mg/dL (70-99) Calcium Level 8.5 mg/dL (8.5-10.1) Total Bilirubin 0.7 mg/dL (0.2-1.0) Aspartate Amino Transf (AST/SGOT) 20 U/L (15-37) Alanine Aminotransferase (ALT/SGPT) 26 U/L (16-63) Alkaline Phosphatase 49 U/L (46-116) Total Protein 6.9 g/dL (6.4-8.2) Albumin 3.1 g/dL (3.4-5.0) Albumin/Globulin Ratio 0.8 (1.0-1.7) Laboratory Tests Test 08/18/18 22:55 Hemoglobin 8.1 g/dL (13.0-17.5) Hematocrit 26.9 % (39.0-53.0) Medications Active Scripts Medications Dose Route/Sig Max Daily Dose Days Date Category Warfarin Sodium 1 Mg Tablet 12.5 Mg PO QTUTHSA 08/18/18 Reported Warfarin Sodium 5 Mg Tablet 10 Mg PO QMWF 08/18/18 Reported Proair Hfa Inhaler (Albuterol Sulfate) 8.5 Gm Hfa.aer.ad 1 Puff INH PRN Q6HRS PRN 06/19/18 Reported Symbicort 80-4.5 Mcg Inhaler (Budesonide/Formoterol Fumarate) 10.2 Gm Hfa.aer.ad 2 Puff IH BID 06/19/18 Reported Spiriva (Tiotropium [place]) 18 Mcg Cap.w.dev 1 Cap IH DAILY 06/19/18 Reported Losartan Potassium 100 Mg Tablet 100 Mg PO DAILYWSUP 06/19/18 Reported Impression . ABNORMAL V/Q SCAN ACUTE BLOOD LOSS ANEMIA AECOPD HYPERCAPNEA WILL D/W TRENT AMADO/KYLER REPEAT VENOUS DOPPLER AT THIS POINT I WOULD HOLD OFF ANY FURTHER ANTICOAGULATION THANKS CONTRERAS MENESES MD Aug 19, 2018 16:35
--- NOTE | 2018-08-19 17:12 | RAD ---
Examination: Lower Extremity Venous Doppler Ultrasound History: Pulmonary embolism Comparison: None Procedure: Shelley scale, color flow 2D and spectal waveform analysis images are obtained with and without compression in the area of the common femoral vein, superficial femoral vein - femoral vein junction, main femoral vein (superficial femoral vein) and popliteal vein. Veins of the proximal calf are also imaged. Findings: There is normal duplex flow, color flow and compressibility of all visualized vein segments. No evidence of deep venous thrombus is present. Impression: No evidence of DVT in the visualized bilateral lower extremity venous system. Electronically signed by: Emerson Turcios MD (08/19/2018 5:08 PM) [id number]
[2018-08-19 19:00] VITALS: BP 140/69
[2018-08-19] MEDS: FAMOTIDINE 20 MG TABLET. PO SCH (20:50)
--- NOTE | 2018-08-19 21:41 | CONS ---
DATE OF CONSULTATION: 08/19/2018 ATTENDING PHYSICIAN: Dr. Luis Enrique José. REASON FOR CONSULTATION: The patient seen in pulmonary consultation at the request of Dr. Pro for evaluation of history of PE, GI bleed. HISTORY OF PRESENT ILLNESS: The patient is a 62-year-old male with a history of Crohn's on Remicade and anemia requiring transfusion and B12, had an EGD and colonoscopy on 07/29/2018. There was indication of an anastomotic ulcer. The patient also reported some black stools for several weeks. He has a history of DVT and PE. As an outpatient, he was more short of breath on the 13 of this month. He had a chest x-ray which I personally reviewed revealing evidence of pulmonary edema. The patient now comes in with hemoglobin of 7.5 and has been transfused. I was asked to see him in consultation for an opinion on continue anticoagulation. He did have a V/Q scan, which was abnormal on the . The abnormality, I believe is related to his pulmonary edema. The patient has had DVT and pulmonary embolism x 2, last time was many years ago. He has been on anticoagulation since then. PAST MEDICAL HISTORY: PE, DVT, hypertension, Crohn's, nephrolithiasis, cholelithiasis. He has had previous ileocolic resection, ventral hernia repair. FAMILY HISTORY: No family history of thrombophilia. SOCIAL HISTORY: He is currently not smoking. REVIEW OF SYSTEMS: As indicated above, otherwise, a 10-point system was reviewed and negative. CURRENT MEDICATIONS: List was reviewed. ALLERGIES: CONTRAST DYE WHICH WAS ANAPHYLACTIC REACTION. PHYSICAL EXAMINATION: GENERAL: The patient was in no respiratory distress. VITAL SIGNS: Stable. O2 saturation was greater than 92%, currently on 2 liters. HEENT: Eyes, the sclerae were nonicteric. NECK: Jugular venous distention was not elevated. No lymphadenopathy. CHEST: Full expansion. LUNGS: Diminished breath sounds bilaterally with no wheezes. CARDIOVASCULAR: Regular rate and rhythm with S1, S2, no S3. ABDOMEN: Soft, nontender, nondistended. EXTREMITIES: No clubbing, cyanosis. He did have some lower extremity edema with a chronic wound. LABORATORY DATA: Reviewed. White count was noted. Hemoglobin and hematocrit were noted. Arterial blood gas revealed a pH of 7.38, PaCO2 of 60, paO2 of 146. Electrolytes were noted. INR was 1.2 on the . Chest x-ray on the revealed no active disease in comparison to previous film. It has improved. V/Q scan was read out as intermediate probability. IMPRESSION: 1. Abnormal V/Q scan read out as intermediate probability with an abnormal chest x-ray at the time of the V/Q scan. The x-ray revealed pulmonary edema. 2. History of deep venous thrombosis and pulmonary embolism. 3. Acute exacerbation of chronic obstructive pulmonary disease. 4. Acute on chronic hypercapnic respiratory failure. 5. Chronic anemia with current acute drop in hemoglobin. 6. Crohn's disease. 7. Nephrolithiasis. 8. Questionable cholelithiasis. 9. Chronic immunosuppression. The patient is on Remicade. Considering the patient's current active blood loss, I would recommend discontinuing anticoagulation, the V/Q scan back on 08/13/2018 was abnormal as a consequence of pulmonary edema. We will obtain venous Dopplers of the lower extremities. If positive, I will continue anticoagulation. If negative, I recommend discontinuing anticoagulation and monitoring for recurrent PE, DVT. The above will be discussed with Dr. José and Dr. Pro. I do appreciate the privilege in sharing this patient's care. CONTRERAS MENESES MD DR: KIRILL/nicky JOB#: [id number] / [id number]
[2018-08-19 23:05] VITALS: BP 150/70
[2018-08-20 03:23] VITALS: BP 130/70
[2018-08-20 05:15] LABS: HEMATOCRIT 25.6 % (39.0-53.0); HEMOGLOBIN 7.7 g/dL (13.0-17.5); RED BLOOD COUNT 3.74 x10^6/uL (4.30-5.70); RED CELL DISTRIBUTION WIDTH 23.5 % (11.5-14.5); WHITE BLOOD COUNT 4.4 x10^3/uL (4.0-11.0)
[2018-08-20 05:25] LABS: PROTHROMBIN TIME PATIENT 15.3 SEC (11.7-14.0)
[2018-08-20 07:30] VITALS: BP 147/76
[2018-08-20] MEDS: BUDESONIDE 0.5 MG/2 ML NEBU. NEB SCH ×2 (08:03→20:39)
[2018-08-20] MEDS: IPRATRPIUM/ALBUTEROL 0.5/2.5MG 3 ML NEBU. NEB SCH ×4 (08:03→20:40)
[2018-08-20] MEDS ORDERED: ACETAMINOPHEN 325 MG TABLET. PO PRN (08:45)
--- NOTE | 2018-08-20 08:55 | PDOC ---
Provider Note Provider Note vss, feels better, no cough- sono neg in legs- he agrees to dc oac as risk > benefit, will do echo re dyspnea- follow KANWAL Prajapati MD Aug 20, 2018 08:55
--- NOTE | 2018-08-20 10:34 | PDOC ---
PULMONARY PROGRESS NOTES Subjective PT NOT MORE SOA Vitals Vital Signs Date Time Temp Pulse Resp B/P (MAP) Pulse Ox O2 Delivery O2 Flow Rate FiO2 08/20/18 08:03 96 Nasal Cannula 3.0 08/20/18 07:30 98.3 84 20 147/76 (99) 98.3 ROS: No Nausea, No Chest Pain, No Abdominal Pain, No Increase Cough Cardiovascular: S1, S2 Abdomen: Soft Neuro Exam: Alert Labs Laboratory Tests Test 08/18/18 15:22 08/18/18 22:55 08/20/18 04:30 Hemoglobin 7.7 g/dL (13.0-17.5) 8.1 g/dL (13.0-17.5) 7.7 g/dL (13.0-17.5) Hematocrit 25.7 % (39.0-53.0) 26.9 % (39.0-53.0) 25.6 % (39.0-53.0) Mean Corpuscular Hemoglobin Concent 30 g/dL (31-37) 30 g/dL (31-37) White Blood Count 4.4 x10^3/uL (4.0-11.0) Red Blood Count 3.74 x10^6/uL (4.30-5.70) Mean Corpuscular Volume 68 fL (79-100) Mean Corpuscular Hemoglobin 21 pg (25-35) Red Cell Distribution Width 23.5 % (11.5-14.5) Platelet Count 302 x10^3/uL (140-400) Prothrombin Time 15.3 SEC (11.7-14.0) Prothromb Time International Ratio 1.2 (0.8-1.1) Laboratory Tests Test 08/20/18 04:30 White Blood Count 4.4 x10^3/uL (4.0-11.0) Red Blood Count 3.74 x10^6/uL (4.30-5.70) Hemoglobin 7.7 g/dL (13.0-17.5) Hematocrit 25.6 % (39.0-53.0) Mean Corpuscular Volume 68 fL (79-100) Mean Corpuscular Hemoglobin 21 pg (25-35) Mean Corpuscular Hemoglobin Concent 30 g/dL (31-37) Red Cell Distribution Width 23.5 % (11.5-14.5) Platelet Count 302 x10^3/uL (140-400) Prothrombin Time 15.3 SEC (11.7-14.0) Prothromb Time International Ratio 1.2 (0.8-1.1) Medications Active Scripts Medications Dose Route/Sig Max Daily Dose Days Date Category Warfarin Sodium 1 Mg Tablet 12.5 Mg PO QTUTHSA 08/18/18 Reported Warfarin Sodium 5 Mg Tablet 10 Mg PO QMWF 08/18/18 Reported Proair Hfa Inhaler (Albuterol Sulfate) 8.5 Gm Hfa.aer.ad 1 Puff INH PRN Q6HRS PRN 06/19/18 Reported Symbicort 80-4.5 Mcg Inhaler (Budesonide/Formoterol Fumarate) 10.2 Gm Hfa.aer.ad 2 Puff IH BID 06/19/18 Reported Spiriva (Tiotropium [place]) 18 Mcg Cap.w.dev 1 Cap IH DAILY 06/19/18 Reported Losartan Potassium 100 Mg Tablet 100 Mg PO DAILYWSUP 06/19/18 Reported Impression . IMPRESSION: 1. Abnormal V/Q scan read out as intermediate probability with an abnormal chest x-ray at the time of the V/Q scan. The x-ray revealed pulmonary edema. 2. History of deep venous thrombosis and pulmonary embolism. 3. Acute exacerbation of chronic obstructive pulmonary disease. 4. Acute on chronic hypercapnic respiratory failure. 5. Chronic anemia with current acute drop in hemoglobin. 6. Crohn's disease. 7. Nephrolithiasis. 8. Questionable cholelithiasis. 9. Chronic immunosuppression. The patient is on Remicade. VENOUS DOPPLERS Impression: No evidence of DVT in the visualized bilateral lower extremity venous system. Plan . SPOKE WITH TRENT CHÁVEZ AND INGRIS I DO NOT RECOMMEND ANTICOUGULATIION HAVE PT FOLLOW UP WITH ME IN OFFICE IN [place] TO DC FROM MY STANDPOINT CONTRERAS MENESES MD Aug 20, 2018 10:34
--- NOTE | 2018-08-20 11:29 | CARD ---
MR#: [id number] Date of Study: 08/20/2018 Ordering Physician: KANWAL AMADO, Referring Physician: KANWAL AMADO, Tech: Annamarie Sparks APPROVED REPORT EXAM: Two-dimensional and M-mode echocardiogram with Doppler and color Doppler. Other Information Quality : AverageHR: 89bpm INDICATION Dyspnea Pulmonary embolism RISK FACTORS Hypertension Previous smoker 2D DIMENSIONS RVDd4.0 (2.9-3.5cm)Left Atrium(2D)3.7 (1.6-4.0cm) IVSd1.2 (0.7-1.1cm)Aortic Root(2D)3.4 (2.0-3.7cm) LVDd5.9 (3.9-5.9cm)LVOT Diameter2.3 (1.8-2.4cm) PWd1.3 (0.7-1.1cm)LVDs3.0 (2.5-4.0cm) FS (%) 50.2 %SV141.1 ml LVEF(%)80.8 (>50%) Aortic Valve AoV Peak Valentin.143.8cm/sAoV VTI31.3cm AO Peak GR.8.3mmHgLVOT Peak Valentin.120.3cm/s LVOT VTI 27.02cmAO Mean GR.6mmHg HILL (VMAX)2.83dv0OWX (VTI)3.69cm2 Mitral Valve MV E Kpibrujw894.2cm/sMV DECEL [id number] MV A Dlxsttqg46.1cm/sMV EEY40ff E/A Ratio1.1MVA (PHT)3.33cm2 TDI E/Lateral E'11.6E/Medial E'12.8 Pulmonary Valve PV Peak Ethoqpwh825.7cm/sPV Peak Grad.7mmHg Tricuspid Valve RAP [id number] Pulmonary Vein S1 Faxresxh23.8cm/sD2 Mksxkvku24.6cm/s PVa [id number] LEFT VENTRICLE The left ventricle is normal size. There is mild to moderate concentric left ventricular hypertrophy. The left ventricular systolic function is normal. The Ejection Fraction is 55-60%. There is normal L V segmental wall motion. RIGHT VENTRICLE The right ventricle is normal size. There is normal right ventricular wall thickness. The right ventr icular systolic function is normal. ATRIA The left atrium size is normal. The right atrium size is normal. The interatrial septum is intact wit h no evidence for an atrial septal defect or patent foramen ovale as noted on 2-D or Doppler imaging. AORTIC VALVE The aortic valve is normal in structure and function. Doppler and Color Flow revealed no significant aortic regurgitation. There is no significant aortic valvular stenosis. MITRAL VALVE The mitral valve is thickened but opens well. There is no evidence of mitral valve prolapse. There is no mitral valve stenosis. Doppler and Color-flow revealed trace mitral regurgitation. TRICUSPID VALVE The tricuspid valve is not well visualized. Doppler and Color Flow revealed no tricuspid valve regurg itation noted. There is no tricuspid valve stenosis. PULMONIC VALVE The pulmonic valve is not well visualized. Doppler and Color Flow revealed no pulmonic valvular regur gitation. GREAT VESSELS The aortic root is normal in size. The IVC is normal in size and collapses >50% with inspiration. PERICARDIAL EFFUSION There is no evidence of significant pericardial effusion. Critical Notification Critical Value: No <Conclusion> The left ventricular systolic function is normal. The Ejection Fraction is 55-60%. There is normal LV segmental wall motion. Doppler and Color-flow revealed trace mitral regurgitation. There is no evidence of significant pericardial effusion. Signed by : Grupo Richey, Electronically Approved : 08/20/2018 11:28:20
--- NOTE | 2018-08-20 11:55 | PDOC ---
Objective: Objective: Out of room for echo. RN received report of a "dark" stool. Vital Signs: Vital Signs Date Time Temp Pulse Resp B/P (MAP) Pulse Ox O2 Delivery O2 Flow Rate FiO2 08/20/18 08:03 96 Nasal Cannula 3.0 08/20/18 07:30 98.3 84 20 147/76 (99) 98.3 Labs: Laboratory Tests Test 08/20/18 04:30 White Blood Count 4.4 x10^3/uL Red Blood Count 3.74 x10^6/uL Hemoglobin 7.7 g/dL Hematocrit 25.6 % Mean Corpuscular Volume 68 fL Mean Corpuscular Hemoglobin 21 pg Mean Corpuscular Hemoglobin Concent 30 g/dL Red Cell Distribution Width 23.5 % Platelet Count 302 x10^3/uL Prothrombin Time 15.3 SEC Prothromb Time International Ratio 1.2 PE: no exam A/P: Indeterminate VQ scan - Warfarin and Lovenox stopped Anemia - stable Dark stools Crohn's - on Remicade, h/o ileocolic resection w/ anastomotic ulcer ( colonoscopy <1 month) -- ADAT, will review w/ Dr. Pro. HEATHER KATE Aug 20, 2018 11:55
[2018-08-20 15:02] VITALS: BP 150/72
[2018-08-20 19:39] VITALS: BP 160/79
[2018-08-20] MEDS: ACETAMINOPHEN/CODEINE 300/30MG TABLET. PO PRN (20:15)
[2018-08-20] MEDS: FAMOTIDINE 20 MG TABLET. PO SCH (20:15)
[2018-08-20 23:33] VITALS: BP 181/99
[2018-08-20] MEDS ORDERED: VANCOMYCIN 1.5 GM in IV NORMAL SALINE 500ML BAG 500 ML IV SCH (23:45)
[2018-08-21] MEDS ORDERED: methylPREDNISolone SOD SUCC PF 125 MG/2 ML VIAL. IV ONE
[2018-08-21] MEDS: VANCOMYCIN 2 GM in IV NORMAL SALINE 500ML BAG 500 ML IV ONE ×2 (00:06→02:03)
[2018-08-21 00:34] LABS: BASE EXCESS ABG 8 mmol/L (-3-3); CORRECTED PCO2 ABG 61 mmHg; CORRECTED PH ABG 7.37; CORRECTED PO2 ABG 97 mmHg; HCO3 ABG 34 mmol/L (21-28); SAT O2 ABG 96 % (92-99)
[2018-08-21] MEDS: ACETAMINOPHEN 325 MG TABLET. PO PRN (01:59)
[2018-08-21 03:20] VITALS: BP 178/89
[2018-08-21 03:44] LABS: HEMATOCRIT 28.9 % (39.0-53.0); HEMOGLOBIN 8.7 g/dL (13.0-17.5); RED BLOOD COUNT 4.24 x10^6/uL (4.30-5.70); RED CELL DISTRIBUTION WIDTH 24.1 % (11.5-14.5); WHITE BLOOD COUNT 11.7 x10^3/uL (4.0-11.0)
[2018-08-21] MEDS: VANCOMYCIN PER PHARMACY MC PRN ×2 (04:44→15:16)
[2018-08-21] MEDS: ACETAMINOPHEN/CODEINE 300/30MG TABLET. PO PRN ×3 (05:18→19:32)
[2018-08-21 07:00] LABS: PCO2 ABG 57 mmHg (35-46); PO2 ABG 86 mmHg (65-108)
[2018-08-21] MEDS: IPRATRPIUM/ALBUTEROL 0.5/2.5MG 3 ML NEBU. NEB SCH ×4 (07:20→20:29)
[2018-08-21] MEDS: BUDESONIDE 0.5 MG/2 ML NEBU. NEB SCH (07:23)
[2018-08-21 07:48] VITALS: BP 149/69
--- NOTE | 2018-08-21 08:10 | RAD ---
EXAM: AP View of the chest DATE: 08/20/2018 11:49 PM INDICATION: increasing shortness of air; fever COMPARISON: 08/17/2018 FINDINGS: Heart is mildly enlarged. Atherosclerotic calcifications of the tortuous aorta are seen. Mediastinal and hilar contours are stable. Interstitial prominence bilaterally, progressed, suggesting interstitial edema. Associated patchy opacities are now seen most prominent within the left midlung. A 1 cm nodular opacity is seen in the right lung base. Consider further evaluation with CT. Trace left pleural effusion. No pneumothorax. Rightward curvature of the thoracic spine. IMPRESSION: 1. Interstitial prominence bilaterally, progressed now with regions of associated airspace opacity, suggesting interstitial and alveolar edema. 2. 1 cm nodular opacity is seen in the right lung base. Consider further evaluation with CT. Electronically signed by: Leoncio Sims MD (08/21/2018 8:06 AM) [facility]
--- NOTE | 2018-08-21 08:29 | PDOC ---
Provider Note Provider Note spiked temp to 103 last pm, some cough, scant sputum, no other sxs- wbc up, cxr not remarkable yet- blood cult, ua pending- have started vanc/levoflox re HAP suspected/immunosupression, check flu test, sputum, legionmella antigen KANWAL AMADO MD Aug 21, 2018 08:29
--- NOTE | 2018-08-21 09:06 | PDOC ---
PULMONARY PROGRESS NOTES Subjective ROUGH NIGHT NOT MORE SOA Vitals Vital Signs Date Time Temp Pulse Resp B/P (MAP) Pulse Ox O2 Delivery O2 Flow Rate FiO2 08/21/18 07:48 98.9 99 20 149/69 (95) 96 Nasal Cannula 4.0 98.9 ROS: No Nausea, No Chest Pain, No Abdominal Pain, No Increase Cough General: Alert Lungs: Crackles Cardiovascular: S1, S2 Abdomen: Soft Neuro Exam: Alert Extremities: No Edema Skin: Warm Labs Laboratory Tests Test 08/20/18 04:30 08/20/18 23:11 08/21/18 02:30 White Blood Count 4.4 x10^3/uL (4.0-11.0) 11.7 x10^3/uL (4.0-11.0) Red Blood Count 3.74 x10^6/uL (4.30-5.70) 4.24 x10^6/uL (4.30-5.70) Hemoglobin 7.7 g/dL (13.0-17.5) 8.7 g/dL (13.0-17.5) Hematocrit 25.6 % (39.0-53.0) 28.9 % (39.0-53.0) Mean Corpuscular Volume 68 fL (79-100) 68 fL (79-100) Mean Corpuscular Hemoglobin 21 pg (25-35) 20 pg (25-35) Mean Corpuscular Hemoglobin Concent 30 g/dL (31-37) 30 g/dL (31-37) Red Cell Distribution Width 23.5 % (11.5-14.5) 24.1 % (11.5-14.5) Platelet Count 302 x10^3/uL (140-400) 330 x10^3/uL (140-400) Prothrombin Time 15.3 SEC (11.7-14.0) Prothromb Time International Ratio 1.2 (0.8-1.1) O2 Saturation 96 % (92-99) Arterial Blood pH 7.40 (7.35-7.45) Arterial Blood pH (Temp corrected) 7.37 Arterial Blood pCO2 at Patient Temp 57 mmHg (35-46) Arterial Blood pCO2 (Temp correct) 61 mmHg Arterial Blood pO2 at Patient Temp 86 mmHg (65-108) Arterial Blood pO2 (Temp corrected) 97 mmHg Arterial Blood HCO3 34 mmol/L (21-28) Arterial Blood Base Excess 8 mmol/L (-3-3) Laboratory Tests Test 08/20/18 23:11 08/21/18 02:30 O2 Saturation 96 % (92-99) Arterial Blood pH 7.40 (7.35-7.45) Arterial Blood pH (Temp corrected) 7.37 Arterial Blood pCO2 at Patient Temp 57 mmHg (35-46) Arterial Blood pCO2 (Temp correct) 61 mmHg Arterial Blood pO2 at Patient Temp 86 mmHg (65-108) Arterial Blood pO2 (Temp corrected) 97 mmHg Arterial Blood HCO3 34 mmol/L (21-28) Arterial Blood Base Excess 8 mmol/L (-3-3) White Blood Count 11.7 x10^3/uL (4.0-11.0) Red Blood Count 4.24 x10^6/uL (4.30-5.70) Hemoglobin 8.7 g/dL (13.0-17.5) Hematocrit 28.9 % (39.0-53.0) Mean Corpuscular Volume 68 fL (79-100) Mean Corpuscular Hemoglobin 20 pg (25-35) Mean Corpuscular Hemoglobin Concent 30 g/dL (31-37) Red Cell Distribution Width 24.1 % (11.5-14.5) Platelet Count 330 x10^3/uL (140-400) Medications Active Scripts Medications Dose Route/Sig Max Daily Dose Days Date Category Warfarin Sodium 1 Mg Tablet 12.5 Mg PO QTUTHSA 08/18/18 Reported Warfarin Sodium 5 Mg Tablet 10 Mg PO QMWF 08/18/18 Reported Proair Hfa Inhaler (Albuterol Sulfate) 8.5 Gm Hfa.aer.ad 1 Puff INH PRN Q6HRS PRN 06/19/18 Reported Symbicort 80-4.5 Mcg Inhaler (Budesonide/Formoterol Fumarate) 10.2 Gm Hfa.aer.ad 2 Puff IH BID 06/19/18 Reported Spiriva (Tiotropium [place]) 18 Mcg Cap.w.dev 1 Cap IH DAILY 06/19/18 Reported Losartan Potassium 100 Mg Tablet 100 Mg PO DAILYWSUP 06/19/18 Reported Impression . IMPRESSION: 1. Abnormal V/Q scan read out as intermediate probability with an abnormal chest x-ray at the time of the V/Q scan. The x-ray revealed pulmonary edema. 2. History of deep venous thrombosis and pulmonary embolism. 3. Acute exacerbation of chronic obstructive pulmonary disease. 4. Acute on chronic hypercapnic respiratory failure. 5. Chronic anemia with current acute drop in hemoglobin. 6. Crohn's disease. 7. Nephrolithiasis. 8. Questionable cholelithiasis. 9. Chronic immunosuppression. The patient is on Remicade. 10. FEVER VENOUS DOPPLERS Impression: No evidence of DVT in the visualized bilateral lower extremity venous system. Plan . REPEAT CXR WORK UP FOR FEVER SPOKE WITH TRENT CHÁVEZ AND INGRIS I DO NOT RECOMMEND ANTICOUGULATIION HAVE PT FOLLOW UP WITH ME IN OFFICE IN CONTRERAS GUZMAN MD Aug 21, 2018 09:06
[2018-08-21] MEDS: VANCOMYCIN 1.5 GM in IV NORMAL SALINE 500ML BAG 500 ML IV SCH ×2 (09:34→17:47)
[2018-08-21 10:17] LABS: BILIRUBIN,URINE NEGATIVE (NEG); CLARITY,URINE CLEAR; COLOR,URINE YELLOW; NITRITE,URINE NEGATIVE (NEG); PH,URINE 5.5; PROTEIN,URINE 100 mg/dL (NEG-TRACE); UROBILINOGEN,URINE 0.2 mg/dL (0.2 mg/dL)
[2018-08-21 10:36] LABS: BACTERIA,URINE 0 /HPF (0-FEW); RBC,URINE 0 /HPF (0-2); SQUAMOUS EPITHELIAL CELL,UR OCC /LPF
[2018-08-21 10:51] VITALS: BP 153/76
--- NOTE | 2018-08-21 10:55 | PDOC ---
Subjective: Subjective: Said he had a rough night but doesn't remember. Tolerating PO, no black stools. Talks about sister who recently had knee replacement and he was supposed to be taking care of her. Breathing is better. Objective: Objective: Reviewed w/ RN - fever overnight, cultures ordered. Vital Signs: Vital Signs Date Time Temp Pulse Resp B/P (MAP) Pulse Ox O2 Delivery O2 Flow Rate FiO2 08/21/18 08:00 Nasal Cannula 4.0 08/21/18 07:48 98.9 99 20 149/69 (95) 96 98.9 Labs: Laboratory Tests Test 08/20/18 23:11 08/21/18 02:30 08/21/18 09:30 O2 Saturation 96 % Arterial Blood pH 7.40 Arterial Blood pH (Temp corrected) 7.37 Arterial Blood pCO2 at Patient Temp 57 mmHg Arterial Blood pCO2 (Temp correct) 61 mmHg Arterial Blood pO2 at Patient Temp 86 mmHg Arterial Blood pO2 (Temp corrected) 97 mmHg Arterial Blood HCO3 34 mmol/L Arterial Blood Base Excess 8 mmol/L White Blood Count 11.7 x10^3/uL Red Blood Count 4.24 x10^6/uL Hemoglobin 8.7 g/dL Hematocrit 28.9 % Mean Corpuscular Volume 68 fL Mean Corpuscular Hemoglobin 20 pg Mean Corpuscular Hemoglobin Concent 30 g/dL Red Cell Distribution Width 24.1 % Platelet Count 330 x10^3/uL Urine Color Yellow Urine Clarity Clear Urine pH 5.5 Urine Specific [place] 1.020 Urine Protein 100 mg/dL Urine Glucose (UA) 500 mg/dL Urine Ketones (Stick) 40 mg/dL Urine Blood Negative Urine Nitrite Negative Urine Bilirubin Negative Urine Urobilinogen Dipstick 0.2 mg/dL Urine Leukocyte Esterase Negative Urine RBC 0 /HPF Urine WBC 1-4 /HPF Urine Squamous Epithelial Cells Occ /LPF Urine Bacteria 0 /HPF Urine Mucus Slight /LPF PE: GEN: NADm up to chair LUNGS: NC HEART: RRR ABD: S/NT EXTREM: LE wound/chronic NEURO/PSYCH: A & O 3 - cheerful, very talkative today A/P: Fever - max 103.5 overnight H/o PE/DVT Anemia - improved off anti-coagulants Dark stools - no recurrence Crohn's - was due for Remicade today -- Stable GI-de anda, await cultures. HEATHER KATE Aug 21, 2018 10:54
[2018-08-21 11:40] LABS: INFLUENZA A PATIENT NEGATIVE (NEGATIVE); INFLUENZA B PATIENT NEGATIVE (NEGATIVE)
[2018-08-21] MEDS: DEXAMETHASONE 4 MG TABLET PO SCH (11:45)
[2018-08-21 14:56] VITALS: BP 146/81
--- NOTE | 2018-08-21 17:18 | RAD ---
PORTABLE CHEST 1V History: SOA, FEVER. Comparison: August 20. Cardiomediastinal silhouette: Enlarged, stable. Central sammi are also prominent and unchanged. Central vascularity appears slightly more distended than on the prior study. Lungs: Mild interstitial opacities appears similar. No new lobar airspace consolidation. Previously seen right lung base nodule is not as well identified on today's study. Pleura: Small left pleural effusion appears similar. Pneumothorax: None visualized Support Devices: None. Impression: Mildly increased congestion, correlate for congestive failure. Mild edema but no consolidated infiltrate. Electronically signed by: Rajan Garcia MD (08/21/2018 5:14 PM) [id number]
[2018-08-21] MEDS: FAMOTIDINE 20 MG TABLET. PO SCH (19:31)
[2018-08-21 19:50] VITALS: BP 140/65
[2018-08-21] MEDS ORDERED: BUDESONIDE 0.5 MG/2 ML NEBU. NEB ONE (21:00)
[2018-08-21 23:48] VITALS: BP 135/70
[2018-08-21] MEDS: BENZOCAINE/MENTHOL LOZENGE. PO PRN (23:59)
[2018-08-22] VITALS (17 sets, daily range): BP systolic 120–186; BP diastolic 62–96
[2018-08-22 02:32] LABS: VANC TR 17.3 mcg/mL (10.0-20.0)
[2018-08-22] MEDS: ACETAMINOPHEN/CODEINE 300/30MG TABLET. PO PRN (02:55)
[2018-08-22] MEDS: VANCOMYCIN 1.5 GM in IV NORMAL SALINE 500ML BAG 500 ML IV SCH ×3 (02:55→18:17)
[2018-08-22 03:09] LABS: BASO % 0 % (0-3); EOS % 0 % (0-3); HEMATOCRIT 28.5 % (39.0-53.0); HEMOGLOBIN 8.4 g/dL (13.0-17.5); LYMPH # 0.4 x10^3/uL (1.0-4.8); LYMPH % 3 % (24-48); MEAN CORPUSCULAR HEMOGLOBIN 21 pg (25-35); MEAN CORPUSCULAR HGB CONC 30 g/dL (31-37); MEAN CORPUSCULAR VOLUME 70 fL (79-100); MONO # 1.3 x10^3/uL (0.0-1.1); MONO % 10 % (0-9); NEUT # 11.7 x10^3uL (1.8-7.7); NEUT % 88 % (31-73); PLATELET COUNT 292 x10^3/uL (140-400); RED BLOOD COUNT 4.07 x10^6/uL (4.30-5.70); RED CELL DISTRIBUTION WIDTH 22.8 % (11.5-14.5); WHITE BLOOD COUNT 13.3 x10^3/uL (4.0-11.0)
[2018-08-22 04:11] LABS: CALCIUM 8.9 mg/dL (8.5-10.1); CREATININE 0.9 mg/dL (0.7-1.3); GFR 86.1; POTASSIUM 4.3 mmol/L (3.5-5.1)
[2018-08-22 04:22] LABS: % BANDS 8 % (0-9); % LYMPHS 3 % (24-48); % MONOS 7 % (0-10); % SEGS 82 % (35-66); ANISOCYTOSIS MOD; HYPOCHROMIA MARKED; MICROCYTOSIS MOD; OVALOCYTES FEW; PLT ESTIMATE ADEQUATE (ADEQUATE); POLYCHROMASIA SLIGHT; TOXIC GRANULATION SLIGHT
[2018-08-22] MEDS: VANCOMYCIN PER PHARMACY MC PRN ×2 (04:37→13:55)
[2018-08-22] MEDS: BENZOCAINE/MENTHOL LOZENGE. PO PRN (05:39)
[2018-08-22] MEDS: IPRATRPIUM/ALBUTEROL 0.5/2.5MG 3 ML NEBU. NEB SCH ×3 (07:36→19:27)
[2018-08-22] MEDS: BUDESONIDE 0.5 MG/2 ML NEBU. NEB SCH ×2 (07:36→19:28)
[2018-08-22] MEDS: DEXAMETHASONE 4 MG TABLET PO SCH (08:18)
[2018-08-22] MEDS: ALBUTEROL SULFATE 2.5 MG/3 ML NEBU. NEB PRN ×3 (09:15→16:23)
--- NOTE | 2018-08-22 09:26 | PDOC ---
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
[2018-08-22] MEDS ORDERED: LORazepam 0.5 MG TABLET PO ONE (12:00)
--- NOTE | 2018-08-22 12:12 | PDOC ---
PULMONARY PROGRESS NOTES Subjective PT SITTING AT EDGE OF CHAIR SEEMS IN RESP DISTRESS AND ANXIOUS Vitals Vital Signs Date Time Temp Pulse Resp B/P (MAP) Pulse Ox O2 Delivery O2 Flow Rate FiO2 08/22/18 11:26 98.7 111 22 159/73 (101) 94 Nasal Cannula 4.0 98.7 ROS: No Nausea, No Chest Pain, No Abdominal Pain, No Increase Cough General: Alert Lungs: Wheezing, Crackles Cardiovascular: S1, S2 Abdomen: Soft Neuro Exam: Alert Extremities: No Edema Skin: Warm Labs Laboratory Tests Test 08/20/18 23:11 08/21/18 02:30 08/21/18 09:30 08/22/18 01:30 O2 Saturation 96 % (92-99) Arterial Blood pH 7.40 (7.35-7.45) Arterial Blood pH (Temp corrected) 7.37 Arterial Blood pCO2 at Patient Temp 57 mmHg (35-46) Arterial Blood pCO2 (Temp correct) 61 mmHg Arterial Blood pO2 at Patient Temp 86 mmHg (65-108) Arterial Blood pO2 (Temp corrected) 97 mmHg Arterial Blood HCO3 34 mmol/L (21-28) Arterial Blood Base Excess 8 mmol/L (-3-3) White Blood Count 11.7 x10^3/uL (4.0-11.0) Red Blood Count 4.24 x10^6/uL (4.30-5.70) Hemoglobin 8.7 g/dL (13.0-17.5) Hematocrit 28.9 % (39.0-53.0) Mean Corpuscular Volume 68 fL (79-100) Mean Corpuscular Hemoglobin 20 pg (25-35) Mean Corpuscular Hemoglobin Concent 30 g/dL (31-37) Red Cell Distribution Width 24.1 % (11.5-14.5) Platelet Count 330 x10^3/uL (140-400) Urine Color Yellow Urine Clarity Clear Urine pH 5.5 Urine Specific [place] 1.020 Urine Protein 100 mg/dL (NEG-TRACE) Urine Glucose (UA) 500 mg/dL (NEG) Urine Ketones (Stick) 40 mg/dL (NEG) Urine Blood Negative (NEG) Urine Nitrite Negative (NEG) Urine Bilirubin Negative (NEG) Urine Urobilinogen Dipstick 0.2 mg/dL (0.2 mg/dL) Urine Leukocyte Esterase Negative (NEG) Urine RBC 0 /HPF (0-2) Urine WBC 1-4 /HPF (0-4) Urine Squamous Epithelial Cells Occ /LPF Urine Bacteria 0 /HPF (0-FEW) Urine Mucus Slight /LPF Influenza Type A Antigen Negative (NEGATIVE) Influenza Type B Antigen Negative (NEGATIVE) Vancomycin Level Trough 17.3 mcg/mL (10.0-20.0) Vancomycin Last Dose Date [id number] Vancomycin Last Dose Time 1800 Test 08/22/18 01:45 White Blood Count 13.3 x10^3/uL (4.0-11.0) Red Blood Count 4.07 x10^6/uL (4.30-5.70) Hemoglobin 8.4 g/dL (13.0-17.5) Hematocrit 28.5 % (39.0-53.0) Mean Corpuscular Volume 70 fL (79-100) Mean Corpuscular Hemoglobin 21 pg (25-35) Mean Corpuscular Hemoglobin Concent 30 g/dL (31-37) Red Cell Distribution Width 22.8 % (11.5-14.5) Platelet Count 292 x10^3/uL (140-400) Neutrophils (%) (Auto) 88 % (31-73) Lymphocytes (%) (Auto) 3 % (24-48) Monocytes (%) (Auto) 10 % (0-9) Eosinophils (%) (Auto) 0 % (0-3) Basophils (%) (Auto) 0 % (0-3) Neutrophils # (Auto) 11.7 x10^3uL (1.8-7.7) Lymphocytes # (Auto) 0.4 x10^3/uL (1.0-4.8) Monocytes # (Auto) 1.3 x10^3/uL (0.0-1.1) Eosinophils # (Auto) 0.0 x10^3/uL (0.0-0.7) Basophils # (Auto) 0.0 x10^3/uL (0.0-0.2) Segmented Neutrophils % 82 % (35-66) Band Neutrophils % 8 % (0-9) Lymphocytes % 3 % (24-48) Monocytes % 7 % (0-10) Toxic Granulation Slight Platelet Estimate Adequate (ADEQUATE) Polychromasia Slight Hypochromasia Marked Basophilic Stippling Present Anisocytosis Mod Microcytosis Mod Ovalocytes Few Sodium Level 140 mmol/L (136-145) Potassium Level 4.3 mmol/L (3.5-5.1) Chloride Level 100 mmol/L (98-107) Carbon Dioxide Level 35 mmol/L (21-32) Anion Gap 5 (6-14) Blood Urea Nitrogen 17 mg/dL (8-26) Creatinine 0.9 mg/dL (0.7-1.3) Estimated GFR (Cockcroft-Gault) 86.1 Glucose Level 139 mg/dL (70-99) Calcium Level 8.9 mg/dL (8.5-10.1) Laboratory Tests Test 08/22/18 01:30 08/22/18 01:45 Vancomycin Level Trough 17.3 mcg/mL (10.0-20.0) Vancomycin Last Dose Date [id number] Vancomycin Last Dose Time 1800 White Blood Count 13.3 x10^3/uL (4.0-11.0) Red Blood Count 4.07 x10^6/uL (4.30-5.70) Hemoglobin 8.4 g/dL (13.0-17.5) Hematocrit 28.5 % (39.0-53.0) Mean Corpuscular Volume 70 fL (79-100) Mean Corpuscular Hemoglobin 21 pg (25-35) Mean Corpuscular Hemoglobin Concent 30 g/dL (31-37) Red Cell Distribution Width 22.8 % (11.5-14.5) Platelet Count 292 x10^3/uL (140-400) Neutrophils (%) (Auto) 88 % (31-73) Lymphocytes (%) (Auto) 3 % (24-48) Monocytes (%) (Auto) 10 % (0-9) Eosinophils (%) (Auto) 0 % (0-3) Basophils (%) (Auto) 0 % (0-3) Neutrophils # (Auto) 11.7 x10^3uL (1.8-7.7) Lymphocytes # (Auto) 0.4 x10^3/uL (1.0-4.8) Monocytes # (Auto) 1.3 x10^3/uL (0.0-1.1) Eosinophils # (Auto) 0.0 x10^3/uL (0.0-0.7) Basophils # (Auto) 0.0 x10^3/uL (0.0-0.2) Segmented Neutrophils % 82 % (35-66) Band Neutrophils % 8 % (0-9) Lymphocytes % 3 % (24-48) Monocytes % 7 % (0-10) Toxic Granulation Slight Platelet Estimate Adequate (ADEQUATE) Polychromasia Slight Hypochromasia Marked Basophilic Stippling Present Anisocytosis Mod Microcytosis Mod Ovalocytes Few Sodium Level 140 mmol/L (136-145) Potassium Level 4.3 mmol/L (3.5-5.1) Chloride Level 100 mmol/L (98-107) Carbon Dioxide Level 35 mmol/L (21-32) Anion Gap 5 (6-14) Blood Urea Nitrogen 17 mg/dL (8-26) Creatinine 0.9 mg/dL (0.7-1.3) Estimated GFR (Cockcroft-Gault) 86.1 Glucose Level 139 mg/dL (70-99) Calcium Level 8.9 mg/dL (8.5-10.1) Medications Active Scripts Medications Dose Route/Sig Max Daily Dose Days Date Category Warfarin Sodium 1 Mg Tablet 12.5 Mg PO QTUTHSA 08/18/18 Reported Warfarin Sodium 5 Mg Tablet 10 Mg PO QMWF 08/18/18 Reported Proair Hfa Inhaler (Albuterol Sulfate) 8.5 Gm Hfa.aer.ad 1 Puff INH PRN Q6HRS PRN 06/19/18 Reported Symbicort 80-4.5 Mcg Inhaler (Budesonide/Formoterol Fumarate) 10.2 Gm Hfa.aer.ad 2 Puff IH BID 06/19/18 Reported Spiriva (Tiotropium [place]) 18 Mcg Cap.w.dev 1 Cap IH DAILY 06/19/18 Reported Losartan Potassium 100 Mg Tablet 100 Mg PO DAILYWSUP 06/19/18 Reported Impression . IMPRESSION: 1. Abnormal V/Q scan read out as intermediate probability with an abnormal chest x-ray at the time of the V/Q scan. The x-ray revealed pulmonary edema. 2. History of deep venous thrombosis and pulmonary embolism. 3. Acute exacerbation of chronic obstructive pulmonary disease. 4. Acute on chronic hypercapnic respiratory failure. 5. Chronic anemia with current acute drop in hemoglobin. 6. Crohn's disease. 7. Nephrolithiasis. 8. Questionable cholelithiasis. 9. Chronic immunosuppression. The patient is on Remicade. 10. FEVER 11. AECOPD VENOUS DOPPLERS Impression: No evidence of DVT in the visualized bilateral lower extremity venous system. Plan . REPEAT CXR WORK UP FOR FEVER REVIEWED NO CONSOLIDATION NIECES AT BEDSIDE CONCERNED THAT HE IS NOT GETTING BETTER I ANSWER THEIR QUESTIONS WILL CHECK ABG DECREASE NEB TO AVOID FURTHER TREMOR REVIEWED LABS AND RX WILL DECREASE DECADRON WILL TRY ATIVAN INFORMED FAMILY THAT HE MAY GET WORSE WITH ATIVAN SPOKE WITH TRENT CHÁVEZ AND INGRIS SEVERAL DAYS AGO I DO NOT RECOMMEND ANTICOUGULATIION CONTRERAS MENESES MD Aug 22, 2018 12:11
[2018-08-22 12:29] LABS: BASE EXCESS ABG 7 mmol/L (-3-3); HCO3 ABG 39 mmol/L (21-28); PO2 ABG 73 mmHg (65-108); SAT O2 ABG 91 % (92-99)
--- NOTE | 2018-08-22 12:35 | PDOC ---
Subjective: Subjective: Patient was seen this morning. He was sitting on chair. He was struggling to stay awake and was able to give very limited information. He has sob. He denies fever. He denies abdominal pain. Objective: Vital Signs: Vital Signs Date Time Temp Pulse Resp B/P (MAP) Pulse Ox O2 Delivery O2 Flow Rate FiO2 08/22/18 12:19 Nasal Cannula 4.0 08/22/18 11:26 98.7 111 22 159/73 (101) 94 98.7 Imaging: [facility] [address] [place] [address] IMAGING REPORT Signed PATIENT: CANDICE AMARO ACCOUNT: [id number] : 1955 LOCATION: AL AGE: 62 SEX: M EXAM STATUS: REG CLI ORD. PHYSICIAN: BRAD CHÁVEZ MD REASON: short of breath for 3 weeks PROCEDURE: LUNG VENT/PERFUSION SCAN(VQ) Nuclear medicine ventilation/perfusion lung scan INDICATION: short of breath for 2-3 weeks. History of DVT and PE about 10 years ago. 8.8mCi Xe133 and 6.6mCi Tc99m MAA. Technique: Multiplanar perfusion images are obtained. Sequential ventilation images are obtained. Findings There is retention of activity in both lungs, compatible with air trapping. Heterogeneous perfusion activity distribution throughout both lungs. Numerous nonsegmental peripheral perfusion defects are identified throughout both lungs. Overall this appears fairly well matched on the anterior and posterior projections. Impression: Multiple nonsegmental perfusion defects throughout both lungs. Exam is intermediate probability for pulmonary embolism. Pulmonary embolism is not excludable. Electronically signed by: Rajan Garcia MD (08/13/2018 10:00 AM) [id number] DICTATED and SIGNED BY: RAJAN GARCIA MD DATE: 08/13/[address] [id number] IMAGING REPORT Signed PATIENT: CANDICE AMARO ACCOUNT: [id number] : 1955 LOCATION: [address] [place] [address] AGE: 62 SEX: M EXAM STATUS: ADM IN ORD. PHYSICIAN: CONTRERAS MENESES MD REASON: PE/DVT PROCEDURE: VENOUS LOWER EXT BILATERAL Examination: Lower Extremity Venous Doppler Ultrasound History: Pulmonary embolism Comparison: None Procedure: Shelley scale, color flow 2D and spectal waveform analysis images are obtained with and without compression in the area of the common femoral vein, superficial femoral vein - femoral vein junction, main femoral vein (superficial femoral vein) and popliteal vein. Veins of the proximal calf are also imaged. Findings: There is normal duplex flow, color flow and compressibility of all visualized vein segments. No evidence of deep venous thrombus is present. Impression: No evidence of DVT in the visualized bilateral lower extremity venous system. Electronically signed by: Emerson Turcios MD (08/19/2018 5:08 PM) [id number] DICTATED and SIGNED BY: EMERSON TURCIOS MD [facility] [address] [place] [address] IMAGING REPORT Signed PATIENT: CANDICE AMARO ACCOUNT: [id number] : 1955 LOCATION: [address] [place] [address] AGE: 62 SEX: M EXAM STATUS: ADM IN ORD. PHYSICIAN: CONTRERAS MENESES MD REASON: FEVER PROCEDURE: PORTABLE CHEST 1V PORTABLE CHEST 1V History: SOA, FEVER. Comparison: August 20. Cardiomediastinal silhouette: Enlarged, stable. Central sammi are also prominent and unchanged. Central vascularity appears slightly more distended than on the prior study. Lungs: Mild interstitial opacities appears similar. No new lobar airspace consolidation. Previously seen right lung base nodule is not as well identified on today's study. Pleura: Small left pleural effusion appears similar. Pneumothorax: None visualized Support Devices: None. Impression: Mildly increased congestion, correlate for congestive failure. Mild edema but no consolidated infiltrate. Electronically signed by: Rajan Garcia MD (08/21/2018 5:14 PM) [id number] DICTATED and SIGNED BY: RAJAN GARCIA MD DATE: 08/21/18 1709 PE: GEN: Acutely sick looking sleepy male patient. HEENT: PERRLA LUNGS: Has good air entry on both lungs valdes. HEART: RRR, no murmurs ABD: Has old midline surgical scar. No guarding or rebound tenderness. EXTREMITY: Has +3 pitting edema. SKIN: No rashes, no jaundice NEURO/PSYCH: A & O 3 A/P: A 62 years old male patient with past medical history of Crohn's disease s/p ileocolonic resection on Remicade. Upper and lower endoscopic exam performed on 07/21/2018 by notable for anastomotic ulcer. Patient also reported to have history of DVT/PE and had been on anticoagulation with Coumadin. Patient 's clinical course has been complicated by anemia and worsening sob. He had V/Q scan that was notable for intermediate probability for pulmonary embolism in setting of underlying pulmonary edema. Doppler of the extremities performed and was negative for DVT. patient was examined this morning. he was sleepy and was able to give very limited information. His labs notable for microcytic anemia with Hgb 8.4 and MCV 70. Has evidence of leucocytosis with WBC 13.0 in setting of dexamethasone use. * Hypercapnic respiratory failure. * Indeterminate V/Q scan for pulmonary embolism in setting of pulmonary edema. * ? CHF * Encephalopathy. * Crohn's disease s/p ileocolonic resection on Remicade. Recent endoscopic exam by /Inocencia notable for anastomotic ulcer. * Bilateral leg swelling: Doppler negative for DVT. * Microcytic anemia: In setting of anticoagulation. Recommendations: - Continue with supportive care. - Follow up with final blood culture report. - Send for iron studies in setting of microcytic anemia. - Monitor CBC and transfuse to keep Hgb above 7. - Consider diuresis while monitoring lytes and Cr with pulmonary congestion/ edema and sob. - Consider imaging of the head if he has worsening of mental status. - GI inpatient consult team will follow up with patient. LOWELL WOODWARD MD Aug 22, 2018 12:34
[2018-08-22 12:38] LABS: FIO2 ABG 36; PCO2 ABG 114 mmHg (35-46)
--- NOTE | 2018-08-22 12:39 | PDOC ---
Provider Note Provider Note ABG NOTED WILL TRANSFER TO ICU START BIPAP REPEAT ABG D/W RT/RN CONTRERAS MENESES MD Aug 22, 2018 12:39
[2018-08-22] MEDS ORDERED: FUROSEMIDE 40 MG/4 ML VIAL. IVP ONE (16:00)
[2018-08-22 16:18] LABS: BASE EXCESS ABG 6 mmol/L (-3-3); HCO3 ABG 36 mmol/L (21-28); PO2 ABG 70 mmHg (65-108); SAT O2 ABG 91 % (92-99)
[2018-08-22 17:43] LABS: FIO2 ABG 35; PCO2 ABG 93 mmHg (35-46)
[2018-08-22] MEDS: FAMOTIDINE 20 MG TABLET. PO SCH (20:51)
[2018-08-22 21:57] LABS: BASE EXCESS ABG 11 mmol/L (-3-3); HCO3 ABG 40 mmol/L (21-28); PO2 ABG 75 mmHg (65-108); SAT O2 ABG 94 % (92-99)
[2018-08-22 21:58] LABS: FIO2 ABG 40; PCO2 ABG 89 mmHg (35-46)
[2018-08-23] VITALS (23 sets, daily range): BP systolic 92–164; BP diastolic 52–81
[2018-08-23] MEDS: VANCOMYCIN 1.5 GM in IV NORMAL SALINE 500ML BAG 500 ML IV SCH (02:36)
[2018-08-23 04:53] LABS: BASO % 0 % (0-3); EOS % 0 % (0-3); HEMATOCRIT 26.7 % (39.0-53.0); HEMOGLOBIN 7.8 g/dL (13.0-17.5); LYMPH # 0.5 x10^3/uL (1.0-4.8); LYMPH % 7 % (24-48); MEAN CORPUSCULAR HEMOGLOBIN 21 pg (25-35); MEAN CORPUSCULAR HGB CONC 29 g/dL (31-37); MEAN CORPUSCULAR VOLUME 71 fL (79-100); MONO # 1.6 x10^3/uL (0.0-1.1); MONO % 20 % (0-9); NEUT # 5.6 x10^3uL (1.8-7.7); NEUT % 73 % (31-73); PLATELET COUNT 248 x10^3/uL (140-400); RED BLOOD COUNT 3.76 x10^6/uL (4.30-5.70); RED CELL DISTRIBUTION WIDTH 23.5 % (11.5-14.5); WHITE BLOOD COUNT 7.8 x10^3/uL (4.0-11.0)
[2018-08-23 05:18] LABS: CALCIUM 8.9 mg/dL (8.5-10.1); CREATININE 1.1 mg/dL (0.7-1.3); GFR 68.3; MAGNESIUM 2.3 mg/dL (1.8-2.4)
--- NOTE | 2018-08-23 05:47 | RAD ---
AP portable chest 08/23/2018. Reason for exam: Respiratory distress. Comparison is made with a study of 08/21/2018. No new infiltrate or effusion is seen. Heart size appears normal. IMPRESSION: No acute findings. Electronically signed by: Loki Simon Jr., MD (08/23/2018 5:43 AM) [id number]
[2018-08-23] MEDS ORDERED: DEXAMETHASONE 4 MG TABLET PO SCH (08:00)
[2018-08-23] MEDS: BUDESONIDE 0.5 MG/2 ML NEBU. NEB SCH ×2 (08:11→19:58)
[2018-08-23] MEDS: IPRATRPIUM/ALBUTEROL 0.5/2.5MG 3 ML NEBU. NEB SCH ×3 (08:11→19:58)
[2018-08-23 08:31] LABS: BASE EXCESS ABG 6 mmol/L (-3-3); HCO3 ABG 35 mmol/L (21-28); PO2 ABG 95 mmHg (65-108); SAT O2 ABG 97 % (92-99)
[2018-08-23 08:46] LABS: PCO2 ABG 88 mmHg (35-46)
[2018-08-23 08:47] LABS: FIO2 ABG 40
[2018-08-23] MEDS ORDERED: IRON SUCROSE COMPLEX 500 MG in IV NORMAL SALINE 250ML 250 ML IV ONE (09:30)
--- NOTE | 2018-08-23 09:33 | PDOC ---
Provider Note Provider Note vss, no more temp > 48 hrs- cxr still clear, echo ok- will dc vanco, cont levoflox, solumedrol in plac eof decadron- still hypercapneic despite high flow bipap- add venofer re anemia KANWAL AMADO MD Aug 23, 2018 09:33
[2018-08-23] MEDS: HALOPERIDOL LACTATE 5 MG/ML VIAL. IVP SCH ×3 (09:45→21:48)
--- NOTE | 2018-08-23 11:27 | PDOC ---
PULMONARY PROGRESS NOTES Subjective TRANSFERRED TO ICU 08/22 NOW ON BIPAP AT TIMES AGITATED AND NOT IN SYNCH WITH BIPAP Vitals Vital Signs Date Time Temp Pulse Resp B/P (MAP) Pulse Ox O2 Delivery O2 Flow Rate FiO2 08/23/18 11:09 93 BiPAP/CPAP 08/23/18 10:00 103 30 134/63 (86) 08/23/18 07:00 98.0 98.0 08/23/18 04:00 4.0 Lungs: Wheezing, Crackles Cardiovascular: S1, S2 Abdomen: Soft Extremities: No Edema Skin: Warm Labs Laboratory Tests Test 08/22/18 01:30 08/22/18 01:45 08/22/18 12:15 08/22/18 14:10 Vancomycin Level Trough 17.3 mcg/mL (10.0-20.0) Vancomycin Last Dose Date [id number] Vancomycin Last Dose Time 1800 White Blood Count 13.3 x10^3/uL (4.0-11.0) Red Blood Count 4.07 x10^6/uL (4.30-5.70) Hemoglobin 8.4 g/dL (13.0-17.5) Hematocrit 28.5 % (39.0-53.0) Mean Corpuscular Volume 70 fL (79-100) Mean Corpuscular Hemoglobin 21 pg (25-35) Mean Corpuscular Hemoglobin Concent 30 g/dL (31-37) Red Cell Distribution Width 22.8 % (11.5-14.5) Platelet Count 292 x10^3/uL (140-400) Neutrophils (%) (Auto) 88 % (31-73) Lymphocytes (%) (Auto) 3 % (24-48) Monocytes (%) (Auto) 10 % (0-9) Eosinophils (%) (Auto) 0 % (0-3) Basophils (%) (Auto) 0 % (0-3) Neutrophils # (Auto) 11.7 x10^3uL (1.8-7.7) Lymphocytes # (Auto) 0.4 x10^3/uL (1.0-4.8) Monocytes # (Auto) 1.3 x10^3/uL (0.0-1.1) Eosinophils # (Auto) 0.0 x10^3/uL (0.0-0.7) Basophils # (Auto) 0.0 x10^3/uL (0.0-0.2) Segmented Neutrophils % 82 % (35-66) Band Neutrophils % 8 % (0-9) Lymphocytes % 3 % (24-48) Monocytes % 7 % (0-10) Toxic Granulation Slight Platelet Estimate Adequate (ADEQUATE) Polychromasia Slight Hypochromasia Marked Basophilic Stippling Present Anisocytosis Mod Microcytosis Mod Ovalocytes Few Sodium Level 140 mmol/L (136-145) Potassium Level 4.3 mmol/L (3.5-5.1) Chloride Level 100 mmol/L (98-107) Carbon Dioxide Level 35 mmol/L (21-32) Anion Gap 5 (6-14) Blood Urea Nitrogen 17 mg/dL (8-26) Creatinine 0.9 mg/dL (0.7-1.3) Estimated GFR (Cockcroft-Gault) 86.1 Glucose Level 139 mg/dL (70-99) Calcium Level 8.9 mg/dL (8.5-10.1) O2 Saturation 91 % (92-99) Arterial Blood pH 7.15 (7.35-7.45) Arterial Blood pCO2 at Patient Temp 114 mmHg (35-46) Arterial Blood pO2 at Patient Temp 73 mmHg (65-108) Arterial Blood HCO3 39 mmol/L (21-28) Arterial Blood Base Excess 7 mmol/L (-3-3) FiO2 36 Iron Level 22 ug/dL (65-175) Total Iron Binding Capacity 521 ug/dL (250-450) Iron Saturation 4 % (15-34) Ferritin 49 ng/mL (26-388) Creatine Kinase 125 U/L (39-308) Troponin I Quantitative < 0.017 ng/mL (0.000-0.055) Test 08/22/18 16:00 08/22/18 21:15 08/23/18 04:30 08/23/18 08:00 O2 Saturation 91 % (92-99) 94 % (92-99) 97 % (92-99) Arterial Blood pH 7.21 (7.35-7.45) 7.27 (7.35-7.45) 7.22 (7.35-7.45) Arterial Blood pCO2 at Patient Temp 93 mmHg (35-46) 89 mmHg (35-46) 88 mmHg (35-46) Arterial Blood pO2 at Patient Temp 70 mmHg (65-108) 75 mmHg (65-108) 95 mmHg (65-108) Arterial Blood HCO3 36 mmol/L (21-28) 40 mmol/L (21-28) 35 mmol/L (21-28) Arterial Blood Base Excess 6 mmol/L (-3-3) 11 mmol/L (-3-3) 6 mmol/L (-3-3) FiO2 35 40 40 White Blood Count 7.8 x10^3/uL (4.0-11.0) Red Blood Count 3.76 x10^6/uL (4.30-5.70) Hemoglobin 7.8 g/dL (13.0-17.5) Hematocrit 26.7 % (39.0-53.0) Mean Corpuscular Volume 71 fL (79-100) Mean Corpuscular Hemoglobin 21 pg (25-35) Mean Corpuscular Hemoglobin Concent 29 g/dL (31-37) Red Cell Distribution Width 23.5 % (11.5-14.5) Platelet Count 248 x10^3/uL (140-400) Neutrophils (%) (Auto) 73 % (31-73) Lymphocytes (%) (Auto) 7 % (24-48) Monocytes (%) (Auto) 20 % (0-9) Eosinophils (%) (Auto) 0 % (0-3) Basophils (%) (Auto) 0 % (0-3) Neutrophils # (Auto) 5.6 x10^3uL (1.8-7.7) Lymphocytes # (Auto) 0.5 x10^3/uL (1.0-4.8) Monocytes # (Auto) 1.6 x10^3/uL (0.0-1.1) Eosinophils # (Auto) 0.0 x10^3/uL (0.0-0.7) Basophils # (Auto) 0.0 x10^3/uL (0.0-0.2) Sodium Level 142 mmol/L (136-145) Potassium Level 5.0 mmol/L (3.5-5.1) Chloride Level 103 mmol/L (98-107) Carbon Dioxide Level 38 mmol/L (21-32) Anion Gap 1 (6-14) Blood Urea Nitrogen 24 mg/dL (8-26) Creatinine 1.1 mg/dL (0.7-1.3) Estimated GFR (Cockcroft-Gault) 68.3 Glucose Level 90 mg/dL (70-99) Calcium Level 8.9 mg/dL (8.5-10.1) Magnesium Level 2.3 mg/dL (1.8-2.4) Laboratory Tests Test 08/22/18 12:15 08/22/18 14:10 08/22/18 16:00 08/22/18 21:15 O2 Saturation 91 % (92-99) 91 % (92-99) 94 % (92-99) Arterial Blood pH 7.15 (7.35-7.45) 7.21 (7.35-7.45) 7.27 (7.35-7.45) Arterial Blood pCO2 at Patient Temp 114 mmHg (35-46) 93 mmHg (35-46) 89 mmHg (35-46) Arterial Blood pO2 at Patient Temp 73 mmHg (65-108) 70 mmHg (65-108) 75 mmHg (65-108) Arterial Blood HCO3 39 mmol/L (21-28) 36 mmol/L (21-28) 40 mmol/L (21-28) Arterial Blood Base Excess 7 mmol/L (-3-3) 6 mmol/L (-3-3) 11 mmol/L (-3-3) FiO2 36 35 40 Iron Level 22 ug/dL (65-175) Total Iron Binding Capacity 521 ug/dL (250-450) Iron Saturation 4 % (15-34) Ferritin 49 ng/mL (26-388) Creatine Kinase 125 U/L (39-308) Troponin I Quantitative < 0.017 ng/mL (0.000-0.055) Test 08/23/18 04:30 08/23/18 08:00 White Blood Count 7.8 x10^3/uL (4.0-11.0) Red Blood Count 3.76 x10^6/uL (4.30-5.70) Hemoglobin 7.8 g/dL (13.0-17.5) Hematocrit 26.7 % (39.0-53.0) Mean Corpuscular Volume 71 fL (79-100) Mean Corpuscular Hemoglobin 21 pg (25-35) Mean Corpuscular Hemoglobin Concent 29 g/dL (31-37) Red Cell Distribution Width 23.5 % (11.5-14.5) Platelet Count 248 x10^3/uL (140-400) Neutrophils (%) (Auto) 73 % (31-73) Lymphocytes (%) (Auto) 7 % (24-48) Monocytes (%) (Auto) 20 % (0-9) Eosinophils (%) (Auto) 0 % (0-3) Basophils (%) (Auto) 0 % (0-3) Neutrophils # (Auto) 5.6 x10^3uL (1.8-7.7) Lymphocytes # (Auto) 0.5 x10^3/uL (1.0-4.8) Monocytes # (Auto) 1.6 x10^3/uL (0.0-1.1) Eosinophils # (Auto) 0.0 x10^3/uL (0.0-0.7) Basophils # (Auto) 0.0 x10^3/uL (0.0-0.2) Sodium Level 142 mmol/L (136-145) Potassium Level 5.0 mmol/L (3.5-5.1) Chloride Level 103 mmol/L (98-107) Carbon Dioxide Level 38 mmol/L (21-32) Anion Gap 1 (6-14) Blood Urea Nitrogen 24 mg/dL (8-26) Creatinine 1.1 mg/dL (0.7-1.3) Estimated GFR (Cockcroft-Gault) 68.3 Glucose Level 90 mg/dL (70-99) Calcium Level 8.9 mg/dL (8.5-10.1) Magnesium Level 2.3 mg/dL (1.8-2.4) O2 Saturation 97 % (92-99) Arterial Blood pH 7.22 (7.35-7.45) Arterial Blood pCO2 at Patient Temp 88 mmHg (35-46) Arterial Blood pO2 at Patient Temp 95 mmHg (65-108) Arterial Blood HCO3 35 mmol/L (21-28) Arterial Blood Base Excess 6 mmol/L (-3-3) FiO2 40 Medications Active Scripts Medications Dose Route/Sig Max Daily Dose Days Date Category Warfarin Sodium 1 Mg Tablet 12.5 Mg PO QTUTHSA 08/18/18 Reported Warfarin Sodium 5 Mg Tablet 10 Mg PO QMWF 08/18/18 Reported Proair Hfa Inhaler (Albuterol Sulfate) 8.5 Gm Hfa.aer.ad 1 Puff INH PRN Q6HRS PRN 06/19/18 Reported Symbicort 80-4.5 Mcg Inhaler (Budesonide/Formoterol Fumarate) 10.2 Gm Hfa.aer.ad 2 Puff IH BID 06/19/18 Reported Spiriva (Tiotropium [place]) 18 Mcg Cap.w.dev 1 Cap IH DAILY 06/19/18 Reported Losartan Potassium 100 Mg Tablet 100 Mg PO DAILYWSUP 06/19/18 Reported Impression . IMPRESSION: 1. Abnormal V/Q scan read out as intermediate probability with an abnormal chest x-ray at the time of the V/Q scan. The x-ray revealed pulmonary edema. 2. History of deep venous thrombosis and pulmonary embolism. 3. Acute exacerbation of chronic obstructive pulmonary disease. 4. Acute on chronic hypercapnic respiratory failure. 5. Chronic anemia with current acute drop in hemoglobin. 6. Crohn's disease. 7. Nephrolithiasis. 8. Questionable cholelithiasis. 9. Chronic immunosuppression. The patient is on Remicade. 10. FEVER 11. AECOPD VENOUS DOPPLERS Impression: No evidence of DVT in the visualized bilateral lower extremity venous system. 08/23 CXR NO INFILTRATES Plan . BIPAP HALDOL PRN D/W DR AMADO DECREASE NEB TO AVOID FURTHER TREMOR IV STEROIDS I DO NOT RECOMMEND SNF ANTICOAGULATION CONTRERAS MENESES MD Aug 23, 2018 11:27
--- NOTE | 2018-08-23 11:34 | PDOC ---
Subjective: Subjective: Patient was examined at bed side. He was transferred overnight to ICU for worsening respiratory distress. Patient was sleepy at time of exam. Discussed with RN in the unit. Patient has been on BiPAP for acute exacerbation of COPD. He received a dose of Lasix with good urine out put. He had fever. Objective: Vital Signs: Vital Signs Date Time Temp Pulse Resp B/P (MAP) Pulse Ox O2 Delivery O2 Flow Rate FiO2 08/23/18 11:09 93 BiPAP/CPAP 08/23/18 10:00 103 30 134/63 (86) 08/23/18 07:00 98.0 98.0 08/23/18 04:00 4.0 PE: GEN: Acutely sick looking male patient on BiPAP. HEENT: Atraumatic, PERRLA LUNGS: CTAB HEART: RRR, no murmurs ABD: Well healed old midline surgical scar. Abdomen mildly distended compared to yesterday's exam. No guarding. EXTREMITY: +3 Bilateral pitting pretibial edema. SKIN: No rashes, no jaundice NEURO/PSYCH: Sleep male patient. A/P: A 62 years old male patient with past medical history of Crohn's disease s/p ileocolonic resection on Remicade. Upper and lower endoscopic exam performed on 07/21/2018 by notable for anastomotic ulcer. Patient also reported to have history of DVT/PE and had been on anticoagulation with Coumadin. Patient 's clinical course has been complicated by anemia and worsening sob. He had V/Q scan that was notable for intermediate probability for pulmonary embolism in setting of underlying pulmonary edema. Doppler of the extremities performed and was negative for DVT. patient was examined this morning. He was sleepy and was able to give very limited information. His labs notable for microcytic anemia with Hgb 7.8 this morning. His leucocytosis has resolved with wbc 7.8. * Acute Hypercapnic respiratory failure: In setting of acute exacerbation of COPD and pulmonary congestion. Started with BiPAP. * Fever. * Mild abdominal distension. * Indeterminate V/Q scan for pulmonary embolism in setting of pulmonary edema. * ?Diastolic CHF with preserved EF. * Metabolic Encephalopathy. * Crohn's disease s/p ileocolonic resection on Remicade. Recent endoscopic exam notable for anastomotic ulcer. * Bilateral leg swelling: Doppler negative for DVT. * Microcytic anemia: In setting of anticoagulation. Iron studies done yesterday consistent with CAITLYN. Recommendations: - Agree with transfer to medical ICU for escalation of care. - Continue with supportive care as per primary team. - Discontinue H2 remedios. Start Protonix 40mg IV BID. - Agree with initiation of iv iron supplement therapy. - KUB. - Monitor CBC and transfuse to keep Hgb above 7. - GI inpatient consult team will follow up with patient. Thank you for involving us in the care of this interesting patient. LOWELL WOODWARD MD Aug 23, 2018 11:34
[2018-08-23] MEDS ORDERED: ACETAMINOPHEN 650 MG SUPP.RECT. PR PRN (12:00)
[2018-08-23 12:53] LABS: BILIRUBIN,URINE NEGATIVE (NEG); CLARITY,URINE TURBID; COLOR,URINE YELLOW; NITRITE,URINE NEGATIVE (NEG); PH,URINE 5.5; PROTEIN,URINE 30 mg/dL (NEG-TRACE); UROBILINOGEN,URINE 0.2 mg/dL (0.2 mg/dL)
[2018-08-23] MEDS: PANTOPRAZOLE IV PUSH 40 MG VIAL. IVP SCH ×2 (13:00→21:48)
[2018-08-23 13:35] LABS: AMORPHOUS SEDIMENT,UR PRESENT /HPF; BACTERIA,URINE 0 /HPF (0-FEW); GRANULAR CASTS,URINE MODERATE /HPF; RBC,URINE TNTC /HPF (0-2); SQUAMOUS EPITHELIAL CELL,UR MOD /LPF; WBC,URINE 0 /HPF (0-4)
--- NOTE | 2018-08-23 14:08 | PDOC ---
Infectious Disease Note Vital Sign Vital Signs Vital Signs Date Time Temp Pulse Resp B/P (MAP) Pulse Ox O2 Delivery O2 Flow Rate FiO2 08/23/18 12:00 Bi-pap 08/23/18 11:58 101.5 112 26 126/61 (82) 91 101.5 08/23/18 04:00 4.0 Labs Lab Laboratory Tests Test 08/22/18 14:10 08/22/18 16:00 08/22/18 21:15 08/23/18 04:30 Iron Level 22 ug/dL (65-175) Total Iron Binding Capacity 521 ug/dL (250-450) Iron Saturation 4 % (15-34) Ferritin 49 ng/mL (26-388) Creatine Kinase 125 U/L (39-308) Troponin I Quantitative < 0.017 ng/mL (0.000-0.055) O2 Saturation 91 % (92-99) 94 % (92-99) Arterial Blood pH 7.21 (7.35-7.45) 7.27 (7.35-7.45) Arterial Blood pCO2 at Patient Temp 93 mmHg (35-46) 89 mmHg (35-46) Arterial Blood pO2 at Patient Temp 70 mmHg (65-108) 75 mmHg (65-108) Arterial Blood HCO3 36 mmol/L (21-28) 40 mmol/L (21-28) Arterial Blood Base Excess 6 mmol/L (-3-3) 11 mmol/L (-3-3) FiO2 35 40 White Blood Count 7.8 x10^3/uL (4.0-11.0) Red Blood Count 3.76 x10^6/uL (4.30-5.70) Hemoglobin 7.8 g/dL (13.0-17.5) Hematocrit 26.7 % (39.0-53.0) Mean Corpuscular Volume 71 fL (79-100) Mean Corpuscular Hemoglobin 21 pg (25-35) Mean Corpuscular Hemoglobin Concent 29 g/dL (31-37) Red Cell Distribution Width 23.5 % (11.5-14.5) Platelet Count 248 x10^3/uL (140-400) Neutrophils (%) (Auto) 73 % (31-73) Lymphocytes (%) (Auto) 7 % (24-48) Monocytes (%) (Auto) 20 % (0-9) Eosinophils (%) (Auto) 0 % (0-3) Basophils (%) (Auto) 0 % (0-3) Neutrophils # (Auto) 5.6 x10^3uL (1.8-7.7) Lymphocytes # (Auto) 0.5 x10^3/uL (1.0-4.8) Monocytes # (Auto) 1.6 x10^3/uL (0.0-1.1) Eosinophils # (Auto) 0.0 x10^3/uL (0.0-0.7) Basophils # (Auto) 0.0 x10^3/uL (0.0-0.2) Sodium Level 142 mmol/L (136-145) Potassium Level 5.0 mmol/L (3.5-5.1) Chloride Level 103 mmol/L (98-107) Carbon Dioxide Level 38 mmol/L (21-32) Anion Gap 1 (6-14) Blood Urea Nitrogen 24 mg/dL (8-26) Creatinine 1.1 mg/dL (0.7-1.3) Estimated GFR (Cockcroft-Gault) 68.3 Glucose Level 90 mg/dL (70-99) Calcium Level 8.9 mg/dL (8.5-10.1) Magnesium Level 2.3 mg/dL (1.8-2.4) Test 08/23/18 08:00 O2 Saturation 97 % (92-99) Arterial Blood pH 7.22 (7.35-7.45) Arterial Blood pCO2 at Patient Temp 88 mmHg (35-46) Arterial Blood pO2 at Patient Temp 95 mmHg (65-108) Arterial Blood HCO3 35 mmol/L (21-28) Arterial Blood Base Excess 6 mmol/L (-3-3) FiO2 40 Micro Microbiology 08/21/18 Blood Culture - Preliminary, Resulted NO GROWTH AFTER 2 DAYS GRAM STAIN RESULT 1 Final Comment Many gram positive cocci. GRAM STAIN RESULT 2 Final Comment Moderate number of gram negative diplococci. GRAM STAIN RESULT 3 Final Comment Few gram negative cocci GRAM STAIN RESULT 4 Final Comment Few gram variable rods Objective Assessment Fever. Influenza and legionella Ag neg Acute encephalopathy Acute respiratory failure, now on BiPAP Crohn's with h/x of ileocolonic resection and chronic Remicade. Anastomotic ulcer found on recent colonoscopy Anemia s/p PRBCs 12/18 h/o DVT/PE, chronic warfarin now stopped due to anemia Plan Plan of Care Repeat pancultures Broaden abx to Zyvox and Zosyn Monitor labs/temp. f/u culture results supporitve care D/w niece and nursing Critical ill Thank you [id number] Patient seen and examined. Chart reviewed in detail. Case discussed with TAXATION ACCOUNTANT. Agree with above Plan MARIO ALBERTO ANDREW APRN Aug 23, 2018 14:08 SEAMUS BENAVIDES MD Aug 23, 2018 22:07
[2018-08-23] MEDS: HALOPERIDOL LACTATE 5 MG/ML VIAL. IVP PRN (14:42)
--- NOTE | 2018-08-23 15:06 | RAD ---
Indication: Abdominal distention. TECHNIQUE: Portable AP chest and 2 views of the abdomen and pelvis COMPARISON: Chest x-ray from same day earlier FINDINGS: Heart is normal in size. Lungs are clear. No pneumothorax or pleural effusion. Visualized bony thorax is within normal limits. No abnormally dilated bowel loops are seen. Moderate proximal colonic stool burden. Visualized bones are within normal limits. IMPRESSION: Nonspecific bowel gas pattern. No convincing evidence of high-grade small bowel obstruction. Follow-up KUB can be obtained in 4-6 hours. Electronically signed by: Chandrakant Ansari DO (08/23/2018 3:02 PM) [facility]
[2018-08-23] MEDS ORDERED: ATROPINE 0.5 MG/5 ML DISP.SYRINGE. IV PRN (15:15)
[2018-08-23] MEDS ORDERED: IV NORMAL SALINE 500ML BAG 500 ML IV PRN (15:15)
[2018-08-23] MEDS: DEXMEDETOMIDINE 200 MCG in IV NORMAL SALINE 50ML 48 ML IV PRN ×2 (16:17→22:04)
[2018-08-23] MEDS: PIPERACILLIN/TAZOBACTAM 3.375 GM in IV NORMAL SALINE 50ML 50 ML IV SCH (17:59)
[2018-08-23 20:56] LABS: BASE EXCESS ABG 9 mmol/L (-3-3); HCO3 ABG 36 mmol/L (21-28); SAT O2 ABG 81 % (92-99)
[2018-08-23 20:57] LABS: FIO2 ABG 30; PCO2 ABG 64 mmHg (35-46); PO2 ABG 46 mmHg (65-108)
[2018-08-23] MEDS: FAMOTIDINE 20 MG TABLET. PO SCH (21:00)
[2018-08-23] MEDS ORDERED: DOXYCYCLINE HYCLATE 100 MG in IV DEXTROSE 5% 100ML 100 ML IV SCH (21:00)
[2018-08-23] MEDS: methylPREDNISolone SOD SUCC PF 40 MG/ML VIAL. IV SCH (21:53)
--- NOTE | 2018-08-23 23:10 | CONS ---
DATE OF CONSULTATION: 08/23/2018 REFERRING PHYSICIAN: Dr. Dodson. REASON FOR CONSULTATION: Fever. HISTORY OF PRESENT ILLNESS: This patient is a 62-year-old male who was sent to the ER on 08/17/2018 from GI physician's office for low oxygen saturation. He has a history of COPD and DVT/PE on chronic warfarin and had been complaining of shortness of air for about 2 weeks. A chest x-ray on 08/13/2018 showed mild interstitial pulmonary edema or atypical/viral infection and a V/Q lung scan at that time showed intermediate probability for pulmonary embolism. On admission, he was anemic and received a blood transfusion. His warfarin therapy has since been discontinued. On the , he spiked a fever of 103.5. Influenza screen and urine legionella antigen were both negative. Blood cultures are negative to date and urinalysis was unremarkable for infection. The fever improved on vancomycin and Levaquin. However, his respiratory status has worsened. He was transferred to the ICU and is now on BiPAP. He received some Haldol earlier for agitation. He had a recurrent fever of 101.5 earlier today. Hence ID consult. PAST MEDICAL HISTORY: 1. Crohn's disease with a history of ileocolonic resection and anastomotic ulcer recently found on colonoscopy 2. Anemia, status post multiple blood transfusions 3. Chronic obstructive pulmonary disease, oxygen dependent. 4. 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 Chronic venous insufficiency 6. Hypertension. 7. Obesity. 8. Gastroesophageal reflux. 9. Kidney stones. PAST SURGICAL HISTORY: Ileocolic colonic resection. Ventral hernia repair. EGD and colonoscopy on 07/08/2018. SOCIAL HISTORY: The patient is single and lives at home. He is a former smoker. FAMILY HISTORY: Noncontributory. ALLERGIES: CONTRAST DYE. MEDICATIONS: Levofloxacin since 08/21. Previously on vancomycin. His last was on a dose on 08/22/2018. Methylprednisolone. Other medications are available and have been reviewed on the MAR. REVIEW OF SYSTEMS: Unobtainable as the patient is encephalopathic and on BiPAP. PHYSICAL EXAMINATION: VITAL SIGNS: Temperature 101.5, blood pressure 126/61, heart rate 112, respiratory rate 26, pulse oximetry is 91% on FiO2 28% via BiPAP. GENERAL: The patient is on BiPAP. Calm. HEENT: Pupils equally round. Normal conjunctivae. Oral exam deferred as he is on BiPAP and unable to view. NECK: Supple. LUNGS: Diminished aeration throughout. HEART: S1 and S2. ABDOMEN: Obese and soft. No grimace or guarding to palpation. Bowel sounds present. EXTREMITIES: Chronic venous stasis changes in the lower extremities bilaterally with small ulcerations, left leg. No cyanosis. SKIN: Warm without generalized rash. NEUROLOGIC: Unresponsive to verbal and tactile stimulation. LABORATORY DATA: Today's WBC 7.8 from 13.3, hemoglobin 7.8 and platelets 248,000. Creatinine 1.1, BUN 24, sodium 142, potassium 5.0 and glucose 90. Troponin is less than 0.017. Creatinine kinase 125. Total bilirubin 0.7, AST 20, ALT 26 and albumin 3.1. Vancomycin trough from the was 17.3. Urinalysis from the showed wbc's 1-4, negative leukocyte esterase, negative nitrite, occasional squamous epithelial cells without bacteria. Influenza screen and urine legionella antigen from the were negative. Blood cultures from the are negative to date. A sputum Gram stain from the shows gram-negative diplococci, Gram-positive cocci and gram-negative cocci as well as gram-variable rods. Recent chest x-ray showed mildly increased congestion without new infiltrate or effusion seen. Lower extremity venous Doppler ultrasound showed no evidence of DVT. IMPRESSION: 1. Fever. 2. Acute encephalopathy. 3. Acute respiratory failure, now on BiPAP. 4. Crohn's with history of ileocolonic resection and chronic Remicade. Anastomotic ulcer found on recent colonoscopy. 5. Anemia, status post blood transfusion on 08/18/2018. 6. History of deep venous thrombosis and pulmonary embolism, on chronic warfarin that has now been discontinued due to anemia. PLAN: Repeat mcfarlane cultures. We will broaden antibiotics to Zyvox and Zosyn. Continue to monitor laboratory values and temperature. We will follow up on the culture results. Supportive care. Discussed with the patient's niece and nursing. The patient is critically ill. Thanks Dr. Dodson for asking us to participate in this patient's care. Should you have further questions or concerns, please call. SEAMUS BENAVIDES MD DR: YO/nicky JOB#: [id number] / [id number]
[2018-08-24] VITALS (25 sets, daily range): BP systolic 127–187; BP diastolic 69–98
[2018-08-24] MEDS: PIPERACILLIN/TAZOBACTAM 3.375 GM in IV NORMAL SALINE 50ML 50 ML IV SCH ×5 (00:26→23:47)
[2018-08-24] MEDS: DEXMEDETOMIDINE 200 MCG in IV NORMAL SALINE 50ML 48 ML IV PRN ×5 (05:27→20:59)
[2018-08-24 05:41] LABS: CREATININE 1.5 mg/dL (0.7-1.3); GFR 47.7; MAGNESIUM 2.5 mg/dL (1.8-2.4); POTASSIUM 5.1 mmol/L (3.5-5.1)
[2018-08-24 06:17] LABS: BASO % 0 % (0-3); EOS % 0 % (0-3); HEMATOCRIT 26.2 % (39.0-53.0); LYMPH # 0.6 x10^3/uL (1.0-4.8); LYMPH % 16 % (24-48); MEAN CORPUSCULAR HEMOGLOBIN 21 pg (25-35); MEAN CORPUSCULAR HGB CONC 31 g/dL (31-37); MEAN CORPUSCULAR VOLUME 69 fL (79-100); MONO # 0.5 x10^3/uL (0.0-1.1); MONO % 12 % (0-9); NEUT # 2.8 x10^3uL (1.8-7.7); NEUT % 72 % (31-73); PLATELET COUNT 217 x10^3/uL (140-400); RED CELL DISTRIBUTION WIDTH 24.6 % (11.5-14.5)
[2018-08-24] MEDS: HALOPERIDOL LACTATE 5 MG/ML VIAL. IVP SCH ×3 (06:46→21:36)
--- NOTE | 2018-08-24 07:47 | RAD ---
Portable chest, 08/24/2018: HISTORY: Respiratory distress Comparison is made to a study from 08/23/2018. The heart size is unchanged and within normal limits. The pulmonary vascularity is normal. There is minimal infiltrate and/or scarring laterally in the left lower lung. The right lung is clear. No significant pleural fluid is seen. IMPRESSION: Minimal left basilar infiltrate. Electronically signed by: Xander Valdez MD (08/24/2018 7:43 AM) [facility]
--- NOTE | 2018-08-24 08:00 | PDOC ---
Infectious Disease Note Subjective Subjective sedated on bipap ROS ROS no n/v/d/fever Vital Sign Vital Signs Vital Signs Date Time Temp Pulse Resp B/P (MAP) Pulse Ox O2 Delivery O2 Flow Rate FiO2 08/24/18 06:00 67 24 163/92 (115) 97 BiPAP/CPAP 08/23/18 23:00 98.4 98.4 Physical Exam PHYSICAL EXAM GENERAL: The patient is on BiPAP. Calm. HEENT: Pupils equally round. Normal conjunctivae. Oral exam deferred as he is on BiPAP and unable to view. NECK: Supple. LUNGS: Diminished aeration throughout. HEART: S1 and S2. ABDOMEN: Obese and soft. No grimace or guarding to palpation. Bowel sounds present. EXTREMITIES: Chronic venous stasis changes in the lower extremities bilaterally with small ulcerations, left leg. No cyanosis. SKIN: Warm without generalized rash. NEUROLOGIC: Unresponsive to verbal and tactile stimulation. Labs Lab Laboratory Tests Test 08/23/18 08:00 08/23/18 12:15 08/23/18 20:24 08/24/18 05:00 O2 Saturation 97 % (92-99) 81 % (92-99) Arterial Blood pH 7.22 (7.35-7.45) 7.37 (7.35-7.45) Arterial Blood pCO2 at Patient Temp 88 mmHg (35-46) 64 mmHg (35-46) Arterial Blood pO2 at Patient Temp 95 mmHg (65-108) 46 mmHg (65-108) Arterial Blood HCO3 35 mmol/L (21-28) 36 mmol/L (21-28) Arterial Blood Base Excess 6 mmol/L (-3-3) 9 mmol/L (-3-3) FiO2 40 30 Urine Collection Type U cath Urine Color Yellow Urine Clarity Turbid Urine pH 5.5 Urine Specific [place] 1.025 Urine Protein 30 mg/dL (NEG-TRACE) Urine Glucose (UA) Negative mg/dL (NEG) Urine Ketones (Stick) Trace mg/dL (NEG) Urine Blood Large (NEG) Urine Nitrite Negative (NEG) Urine Bilirubin Negative (NEG) Urine Urobilinogen Dipstick 0.2 mg/dL (0.2 mg/dL) Urine Leukocyte Esterase Small (NEG) Urine RBC Tntc /HPF (0-2) Urine WBC 0 /HPF (0-4) Urine Squamous Epithelial Cells Mod /LPF Urine Amorphous Sediment Present /HPF Urine Bacteria 0 /HPF (0-FEW) Urine Granular Casts Moderate /HPF Urine Mucus Marked /LPF White Blood Count 4.0 x10^3/uL (4.0-11.0) Red Blood Count 3.80 x10^6/uL (4.30-5.70) Hemoglobin 8.0 g/dL (13.0-17.5) Hematocrit 26.2 % (39.0-53.0) Mean Corpuscular Volume 69 fL (79-100) Mean Corpuscular Hemoglobin 21 pg (25-35) Mean Corpuscular Hemoglobin Concent 31 g/dL (31-37) Red Cell Distribution Width 24.6 % (11.5-14.5) Platelet Count 217 x10^3/uL (140-400) Neutrophils (%) (Auto) 72 % (31-73) Lymphocytes (%) (Auto) 16 % (24-48) Monocytes (%) (Auto) 12 % (0-9) Eosinophils (%) (Auto) 0 % (0-3) Basophils (%) (Auto) 0 % (0-3) Neutrophils # (Auto) 2.8 x10^3uL (1.8-7.7) Lymphocytes # (Auto) 0.6 x10^3/uL (1.0-4.8) Monocytes # (Auto) 0.5 x10^3/uL (0.0-1.1) Eosinophils # (Auto) 0.0 x10^3/uL (0.0-0.7) Basophils # (Auto) 0.0 x10^3/uL (0.0-0.2) Sodium Level 144 mmol/L (136-145) Potassium Level 5.1 mmol/L (3.5-5.1) Chloride Level 105 mmol/L (98-107) Carbon Dioxide Level 37 mmol/L (21-32) Anion Gap 2 (6-14) Blood Urea Nitrogen 32 mg/dL (8-26) Creatinine 1.5 mg/dL (0.7-1.3) Estimated GFR (Cockcroft-Gault) 47.7 Glucose Level 136 mg/dL (70-99) Calcium Level 9.0 mg/dL (8.5-10.1) Magnesium Level 2.5 mg/dL (1.8-2.4) Micro Microbiology 08/21/18 Blood Culture - Preliminary, Resulted NO GROWTH AFTER 3 DAYS 08/21/18 - Final, Resulted 08/21/18 - Final, Resulted 08/21/18 - Final, Resulted 08/21/18 - Final, Resulted 08/21/18 - Final, Resulted 08/21/18 - Final, Resulted 08/21/18 Gram Stain Evaluation - Final, Resulted 08/21/18 Sputum Culture, Resulted Pending Objective Assessment 1. Fever. 2. Acute encephalopathy. 3. Acute respiratory failure, now on BiPAP. 4. Crohn's with history of ileocolonic resection and chronic Remicade. Anastomotic ulcer found on recent colonoscopy. 5. Anemia, status post blood transfusion on 08/18/2018. 6. History of deep venous thrombosis and pulmonary embolism, on chronic warfarin that has now been discontinued due to anemia. Plan Plan of Care Repeat pancultures Broaden abx to Zyvox and Zosyn Monitor labs/temp. f/u [facility] Critical ill CATRINA DE MD Aug 24, 2018 08:00
--- NOTE | 2018-08-24 08:58 | PDOC ---
PULMONARY PROGRESS NOTES Subjective TRANSFERRED TO ICU 08/22 NOW ON BIPAP AT TIMES AGITATED AND NOT IN SYNCH WITH BIPAP Vitals Vital Signs Date Time Temp Pulse Resp B/P (MAP) Pulse Ox O2 Delivery O2 Flow Rate FiO2 08/24/18 06:00 67 24 163/92 (115) 97 BiPAP/CPAP 08/23/18 23:00 98.4 98.4 Lungs: Wheezing, Crackles Cardiovascular: S1, S2 Abdomen: Soft Extremities: No Edema Skin: Warm Labs Laboratory Tests Test 08/22/18 12:15 08/22/18 14:10 08/22/18 16:00 08/22/18 21:15 O2 Saturation 91 % (92-99) 91 % (92-99) 94 % (92-99) Arterial Blood pH 7.15 (7.35-7.45) 7.21 (7.35-7.45) 7.27 (7.35-7.45) Arterial Blood pCO2 at Patient Temp 114 mmHg (35-46) 93 mmHg (35-46) 89 mmHg (35-46) Arterial Blood pO2 at Patient Temp 73 mmHg (65-108) 70 mmHg (65-108) 75 mmHg (65-108) Arterial Blood HCO3 39 mmol/L (21-28) 36 mmol/L (21-28) 40 mmol/L (21-28) Arterial Blood Base Excess 7 mmol/L (-3-3) 6 mmol/L (-3-3) 11 mmol/L (-3-3) FiO2 36 35 40 Iron Level 22 ug/dL (65-175) Total Iron Binding Capacity 521 ug/dL (250-450) Iron Saturation 4 % (15-34) Ferritin 49 ng/mL (26-388) Creatine Kinase 125 U/L (39-308) Troponin I Quantitative < 0.017 ng/mL (0.000-0.055) Test 08/23/18 04:30 08/23/18 08:00 08/23/18 12:15 08/23/18 20:24 White Blood Count 7.8 x10^3/uL (4.0-11.0) Red Blood Count 3.76 x10^6/uL (4.30-5.70) Hemoglobin 7.8 g/dL (13.0-17.5) Hematocrit 26.7 % (39.0-53.0) Mean Corpuscular Volume 71 fL (79-100) Mean Corpuscular Hemoglobin 21 pg (25-35) Mean Corpuscular Hemoglobin Concent 29 g/dL (31-37) Red Cell Distribution Width 23.5 % (11.5-14.5) Platelet Count 248 x10^3/uL (140-400) Neutrophils (%) (Auto) 73 % (31-73) Lymphocytes (%) (Auto) 7 % (24-48) Monocytes (%) (Auto) 20 % (0-9) Eosinophils (%) (Auto) 0 % (0-3) Basophils (%) (Auto) 0 % (0-3) Neutrophils # (Auto) 5.6 x10^3uL (1.8-7.7) Lymphocytes # (Auto) 0.5 x10^3/uL (1.0-4.8) Monocytes # (Auto) 1.6 x10^3/uL (0.0-1.1) Eosinophils # (Auto) 0.0 x10^3/uL (0.0-0.7) Basophils # (Auto) 0.0 x10^3/uL (0.0-0.2) Sodium Level 142 mmol/L (136-145) Potassium Level 5.0 mmol/L (3.5-5.1) Chloride Level 103 mmol/L (98-107) Carbon Dioxide Level 38 mmol/L (21-32) Anion Gap 1 (6-14) Blood Urea Nitrogen 24 mg/dL (8-26) Creatinine 1.1 mg/dL (0.7-1.3) Estimated GFR (Cockcroft-Gault) 68.3 Glucose Level 90 mg/dL (70-99) Calcium Level 8.9 mg/dL (8.5-10.1) Magnesium Level 2.3 mg/dL (1.8-2.4) O2 Saturation 97 % (92-99) 81 % (92-99) Arterial Blood pH 7.22 (7.35-7.45) 7.37 (7.35-7.45) Arterial Blood pCO2 at Patient Temp 88 mmHg (35-46) 64 mmHg (35-46) Arterial Blood pO2 at Patient Temp 95 mmHg (65-108) 46 mmHg (65-108) Arterial Blood HCO3 35 mmol/L (21-28) 36 mmol/L (21-28) Arterial Blood Base Excess 6 mmol/L (-3-3) 9 mmol/L (-3-3) FiO2 40 30 Urine Collection Type U cath Urine Color Yellow Urine Clarity Turbid Urine pH 5.5 Urine Specific [place] 1.025 Urine Protein 30 mg/dL (NEG-TRACE) Urine Glucose (UA) Negative mg/dL (NEG) Urine Ketones (Stick) Trace mg/dL (NEG) Urine Blood Large (NEG) Urine Nitrite Negative (NEG) Urine Bilirubin Negative (NEG) Urine Urobilinogen Dipstick 0.2 mg/dL (0.2 mg/dL) Urine Leukocyte Esterase Small (NEG) Urine RBC Tntc /HPF (0-2) Urine WBC 0 /HPF (0-4) Urine Squamous Epithelial Cells Mod /LPF Urine Amorphous Sediment Present /HPF Urine Bacteria 0 /HPF (0-FEW) Urine Granular Casts Moderate /HPF Urine Mucus Marked /LPF Test 08/24/18 05:00 White Blood Count 4.0 x10^3/uL (4.0-11.0) Red Blood Count 3.80 x10^6/uL (4.30-5.70) Hemoglobin 8.0 g/dL (13.0-17.5) Hematocrit 26.2 % (39.0-53.0) Mean Corpuscular Volume 69 fL (79-100) Mean Corpuscular Hemoglobin 21 pg (25-35) Mean Corpuscular Hemoglobin Concent 31 g/dL (31-37) Red Cell Distribution Width 24.6 % (11.5-14.5) Platelet Count 217 x10^3/uL (140-400) Neutrophils (%) (Auto) 72 % (31-73) Lymphocytes (%) (Auto) 16 % (24-48) Monocytes (%) (Auto) 12 % (0-9) Eosinophils (%) (Auto) 0 % (0-3) Basophils (%) (Auto) 0 % (0-3) Neutrophils # (Auto) 2.8 x10^3uL (1.8-7.7) Lymphocytes # (Auto) 0.6 x10^3/uL (1.0-4.8) Monocytes # (Auto) 0.5 x10^3/uL (0.0-1.1) Eosinophils # (Auto) 0.0 x10^3/uL (0.0-0.7) Basophils # (Auto) 0.0 x10^3/uL (0.0-0.2) Sodium Level 144 mmol/L (136-145) Potassium Level 5.1 mmol/L (3.5-5.1) Chloride Level 105 mmol/L (98-107) Carbon Dioxide Level 37 mmol/L (21-32) Anion Gap 2 (6-14) Blood Urea Nitrogen 32 mg/dL (8-26) Creatinine 1.5 mg/dL (0.7-1.3) Estimated GFR (Cockcroft-Gault) 47.7 Glucose Level 136 mg/dL (70-99) Calcium Level 9.0 mg/dL (8.5-10.1) Magnesium Level 2.5 mg/dL (1.8-2.4) Laboratory Tests Test 08/23/18 12:15 08/23/18 20:24 08/24/18 05:00 Urine Collection Type U cath Urine Color Yellow Urine Clarity Turbid Urine pH 5.5 Urine Specific [place] 1.025 Urine Protein 30 mg/dL (NEG-TRACE) Urine Glucose (UA) Negative mg/dL (NEG) Urine Ketones (Stick) Trace mg/dL (NEG) Urine Blood Large (NEG) Urine Nitrite Negative (NEG) Urine Bilirubin Negative (NEG) Urine Urobilinogen Dipstick 0.2 mg/dL (0.2 mg/dL) Urine Leukocyte Esterase Small (NEG) Urine RBC Tntc /HPF (0-2) Urine WBC 0 /HPF (0-4) Urine Squamous Epithelial Cells Mod /LPF Urine Amorphous Sediment Present /HPF Urine Bacteria 0 /HPF (0-FEW) Urine Granular Casts Moderate /HPF Urine Mucus Marked /LPF O2 Saturation 81 % (92-99) Arterial Blood pH 7.37 (7.35-7.45) Arterial Blood pCO2 at Patient Temp 64 mmHg (35-46) Arterial Blood pO2 at Patient Temp 46 mmHg (65-108) Arterial Blood HCO3 36 mmol/L (21-28) Arterial Blood Base Excess 9 mmol/L (-3-3) FiO2 30 White Blood Count 4.0 x10^3/uL (4.0-11.0) Red Blood Count 3.80 x10^6/uL (4.30-5.70) Hemoglobin 8.0 g/dL (13.0-17.5) Hematocrit 26.2 % (39.0-53.0) Mean Corpuscular Volume 69 fL (79-100) Mean Corpuscular Hemoglobin 21 pg (25-35) Mean Corpuscular Hemoglobin Concent 31 g/dL (31-37) Red Cell Distribution Width 24.6 % (11.5-14.5) Platelet Count 217 x10^3/uL (140-400) Neutrophils (%) (Auto) 72 % (31-73) Lymphocytes (%) (Auto) 16 % (24-48) Monocytes (%) (Auto) 12 % (0-9) Eosinophils (%) (Auto) 0 % (0-3) Basophils (%) (Auto) 0 % (0-3) Neutrophils # (Auto) 2.8 x10^3uL (1.8-7.7) Lymphocytes # (Auto) 0.6 x10^3/uL (1.0-4.8) Monocytes # (Auto) 0.5 x10^3/uL (0.0-1.1) Eosinophils # (Auto) 0.0 x10^3/uL (0.0-0.7) Basophils # (Auto) 0.0 x10^3/uL (0.0-0.2) Sodium Level 144 mmol/L (136-145) Potassium Level 5.1 mmol/L (3.5-5.1) Chloride Level 105 mmol/L (98-107) Carbon Dioxide Level 37 mmol/L (21-32) Anion Gap 2 (6-14) Blood Urea Nitrogen 32 mg/dL (8-26) Creatinine 1.5 mg/dL (0.7-1.3) Estimated GFR (Cockcroft-Gault) 47.7 Glucose Level 136 mg/dL (70-99) Calcium Level 9.0 mg/dL (8.5-10.1) Magnesium Level 2.5 mg/dL (1.8-2.4) Medications Active Scripts Medications Dose Route/Sig Max Daily Dose Days Date Category Warfarin Sodium 1 Mg Tablet 12.5 Mg PO QTUTHSA 08/18/18 Reported Warfarin Sodium 5 Mg Tablet 10 Mg PO QMWF 08/18/18 Reported Proair Hfa Inhaler (Albuterol Sulfate) 8.5 Gm Hfa.aer.ad 1 Puff INH PRN Q6HRS PRN 06/19/18 Reported Symbicort 80-4.5 Mcg Inhaler (Budesonide/Formoterol Fumarate) 10.2 Gm Hfa.aer.ad 2 Puff IH BID 06/19/18 Reported Spiriva (Tiotropium Success) 18 Mcg Cap.w.dev 1 Cap IH DAILY 06/19/18 Reported Losartan Potassium 100 Mg Tablet 100 Mg PO DAILYWSUP 06/19/18 Reported Impression . IMPRESSION: 1. Abnormal V/Q scan read out as intermediate probability with an abnormal chest x-ray at the time of the V/Q scan. The x-ray revealed pulmonary edema. 2. History of deep venous thrombosis and pulmonary embolism. 3. Acute exacerbation of chronic obstructive pulmonary disease. 4. Acute on chronic hypercapnic respiratory failure. 5. Chronic anemia with current acute drop in hemoglobin. 6. Crohn's disease. 7. Nephrolithiasis. 8. Questionable cholelithiasis. 9. Chronic immunosuppression. The patient is on Remicade. 10. FEVER 11. AECOPD VENOUS DOPPLERS Impression: No evidence of DVT in the visualized bilateral lower extremity venous system. 08/23 CXR NO INFILTRATES Plan . 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 did okay Anxiety is an issue PRN Haldol continue Precedex antibiotics and steroids/nebs CONTRERAS MENESES MD Aug 24, 2018 08:58
[2018-08-24] MEDS ORDERED: LACTOBACILLUS RHAMNOSUS GG 1 CAPSULE. PO SCH (09:00)
[2018-08-24] MEDS: methylPREDNISolone SOD SUCC PF 40 MG/ML VIAL. IV SCH ×2 (09:03→21:38)
[2018-08-24] MEDS: PANTOPRAZOLE IV PUSH 40 MG VIAL. IVP SCH ×2 (09:03→21:37)
[2018-08-24] MEDS: IPRATRPIUM/ALBUTEROL 0.5/2.5MG 3 ML NEBU. NEB SCH ×3 (09:50→20:15)
[2018-08-24] MEDS: BUDESONIDE 0.5 MG/2 ML NEBU. NEB SCH ×2 (09:50→20:15)
[2018-08-24 10:22] LABS: BASE EXCESS ABG 8 mmol/L (-3-3); HCO3 ABG 37 mmol/L (21-28); PO2 ABG 121 mmHg (65-108); SAT O2 ABG 98 % (92-99)
[2018-08-24 10:24] LABS: FIO2 ABG 50; PCO2 ABG 83 mmHg (35-46)
--- NOTE | 2018-08-24 10:54 | PDOC ---
Provider Note Provider Note bun/creat up, will add iv fluid, rest of meds same, still tremor ? albuterol, dose reduced KANWAL AMADO MD Aug 24, 2018 10:54
--- NOTE | 2018-08-24 11:15 | PDOC ---
G I PROGRESS NOTE Reason for Follow-up Crohns/dyspnea Subjective Short of air Physical Exam Lungs decreased BS CV S1 S2 ABD +BS, soft, nontender Review of Relevant I have reviewed the following items raúl (where applicable) has been applied. Labs Laboratory Tests Test 08/22/18 12:15 08/22/18 14:10 08/22/18 16:00 08/22/18 21:15 O2 Saturation 91 % (92-99) 91 % (92-99) 94 % (92-99) Arterial Blood pH 7.15 (7.35-7.45) 7.21 (7.35-7.45) 7.27 (7.35-7.45) Arterial Blood pCO2 at Patient Temp 114 mmHg (35-46) 93 mmHg (35-46) 89 mmHg (35-46) Arterial Blood pO2 at Patient Temp 73 mmHg (65-108) 70 mmHg (65-108) 75 mmHg (65-108) Arterial Blood HCO3 39 mmol/L (21-28) 36 mmol/L (21-28) 40 mmol/L (21-28) Arterial Blood Base Excess 7 mmol/L (-3-3) 6 mmol/L (-3-3) 11 mmol/L (-3-3) FiO2 36 35 40 Iron Level 22 ug/dL (65-175) Total Iron Binding Capacity 521 ug/dL (250-450) Iron Saturation 4 % (15-34) Ferritin 49 ng/mL (26-388) Creatine Kinase 125 U/L (39-308) Troponin I Quantitative < 0.017 ng/mL (0.000-0.055) Test 08/23/18 04:30 08/23/18 08:00 08/23/18 12:15 08/23/18 20:24 White Blood Count 7.8 x10^3/uL (4.0-11.0) Red Blood Count 3.76 x10^6/uL (4.30-5.70) Hemoglobin 7.8 g/dL (13.0-17.5) Hematocrit 26.7 % (39.0-53.0) Mean Corpuscular Volume 71 fL (79-100) Mean Corpuscular Hemoglobin 21 pg (25-35) Mean Corpuscular Hemoglobin Concent 29 g/dL (31-37) Red Cell Distribution Width 23.5 % (11.5-14.5) Platelet Count 248 x10^3/uL (140-400) Neutrophils (%) (Auto) 73 % (31-73) Lymphocytes (%) (Auto) 7 % (24-48) Monocytes (%) (Auto) 20 % (0-9) Eosinophils (%) (Auto) 0 % (0-3) Basophils (%) (Auto) 0 % (0-3) Neutrophils # (Auto) 5.6 x10^3uL (1.8-7.7) Lymphocytes # (Auto) 0.5 x10^3/uL (1.0-4.8) Monocytes # (Auto) 1.6 x10^3/uL (0.0-1.1) Eosinophils # (Auto) 0.0 x10^3/uL (0.0-0.7) Basophils # (Auto) 0.0 x10^3/uL (0.0-0.2) Sodium Level 142 mmol/L (136-145) Potassium Level 5.0 mmol/L (3.5-5.1) Chloride Level 103 mmol/L (98-107) Carbon Dioxide Level 38 mmol/L (21-32) Anion Gap 1 (6-14) Blood Urea Nitrogen 24 mg/dL (8-26) Creatinine 1.1 mg/dL (0.7-1.3) Estimated GFR (Cockcroft-Gault) 68.3 Glucose Level 90 mg/dL (70-99) Calcium Level 8.9 mg/dL (8.5-10.1) Magnesium Level 2.3 mg/dL (1.8-2.4) O2 Saturation 97 % (92-99) 81 % (92-99) Arterial Blood pH 7.22 (7.35-7.45) 7.37 (7.35-7.45) Arterial Blood pCO2 at Patient Temp 88 mmHg (35-46) 64 mmHg (35-46) Arterial Blood pO2 at Patient Temp 95 mmHg (65-108) 46 mmHg (65-108) Arterial Blood HCO3 35 mmol/L (21-28) 36 mmol/L (21-28) Arterial Blood Base Excess 6 mmol/L (-3-3) 9 mmol/L (-3-3) FiO2 40 30 Urine Collection Type U cath Urine Color Yellow Urine Clarity Turbid Urine pH 5.5 Urine Specific Collins 1.025 Urine Protein 30 mg/dL (NEG-TRACE) Urine Glucose (UA) Negative mg/dL (NEG) Urine Ketones (Stick) Trace mg/dL (NEG) Urine Blood Large (NEG) Urine Nitrite Negative (NEG) Urine Bilirubin Negative (NEG) Urine Urobilinogen Dipstick 0.2 mg/dL (0.2 mg/dL) Urine Leukocyte Esterase Small (NEG) Urine RBC Tntc /HPF (0-2) Urine WBC 0 /HPF (0-4) Urine Squamous Epithelial Cells Mod /LPF Urine Amorphous Sediment Present /HPF Urine Bacteria 0 /HPF (0-FEW) Urine Granular Casts Moderate /HPF Urine Mucus Marked /LPF Test 08/24/18 05:00 08/24/18 09:50 White Blood Count 4.0 x10^3/uL (4.0-11.0) Red Blood Count 3.80 x10^6/uL (4.30-5.70) Hemoglobin 8.0 g/dL (13.0-17.5) Hematocrit 26.2 % (39.0-53.0) Mean Corpuscular Volume 69 fL (79-100) Mean Corpuscular Hemoglobin 21 pg (25-35) Mean Corpuscular Hemoglobin Concent 31 g/dL (31-37) Red Cell Distribution Width 24.6 % (11.5-14.5) Platelet Count 217 x10^3/uL (140-400) Neutrophils (%) (Auto) 72 % (31-73) Lymphocytes (%) (Auto) 16 % (24-48) Monocytes (%) (Auto) 12 % (0-9) Eosinophils (%) (Auto) 0 % (0-3) Basophils (%) (Auto) 0 % (0-3) Neutrophils # (Auto) 2.8 x10^3uL (1.8-7.7) Lymphocytes # (Auto) 0.6 x10^3/uL (1.0-4.8) Monocytes # (Auto) 0.5 x10^3/uL (0.0-1.1) Eosinophils # (Auto) 0.0 x10^3/uL (0.0-0.7) Basophils # (Auto) 0.0 x10^3/uL (0.0-0.2) Sodium Level 144 mmol/L (136-145) Potassium Level 5.1 mmol/L (3.5-5.1) Chloride Level 105 mmol/L (98-107) Carbon Dioxide Level 37 mmol/L (21-32) Anion Gap 2 (6-14) Blood Urea Nitrogen 32 mg/dL (8-26) Creatinine 1.5 mg/dL (0.7-1.3) Estimated GFR (Cockcroft-Gault) 47.7 Glucose Level 136 mg/dL (70-99) Calcium Level 9.0 mg/dL (8.5-10.1) Magnesium Level 2.5 mg/dL (1.8-2.4) O2 Saturation 98 % (92-99) Arterial Blood pH 7.27 (7.35-7.45) Arterial Blood pCO2 at Patient Temp 83 mmHg (35-46) Arterial Blood pO2 at Patient Temp 121 mmHg (65-108) Arterial Blood HCO3 37 mmol/L (21-28) Arterial Blood Base Excess 8 mmol/L (-3-3) FiO2 50 Laboratory Tests Test 08/23/18 12:15 08/23/18 20:24 08/24/18 05:00 08/24/18 09:50 Urine Collection Type U cath Urine Color Yellow Urine Clarity Turbid Urine pH 5.5 Urine Specific Collins 1.025 Urine Protein 30 mg/dL (NEG-TRACE) Urine Glucose (UA) Negative mg/dL (NEG) Urine Ketones (Stick) Trace mg/dL (NEG) Urine Blood Large (NEG) Urine Nitrite Negative (NEG) Urine Bilirubin Negative (NEG) Urine Urobilinogen Dipstick 0.2 mg/dL (0.2 mg/dL) Urine Leukocyte Esterase Small (NEG) Urine RBC Tntc /HPF (0-2) Urine WBC 0 /HPF (0-4) Urine Squamous Epithelial Cells Mod /LPF Urine Amorphous Sediment Present /HPF Urine Bacteria 0 /HPF (0-FEW) Urine Granular Casts Moderate /HPF Urine Mucus Marked /LPF O2 Saturation 81 % (92-99) 98 % (92-99) Arterial Blood pH 7.37 (7.35-7.45) 7.27 (7.35-7.45) Arterial Blood pCO2 at Patient Temp 64 mmHg (35-46) 83 mmHg (35-46) Arterial Blood pO2 at Patient Temp 46 mmHg (65-108) 121 mmHg (65-108) Arterial Blood HCO3 36 mmol/L (21-28) 37 mmol/L (21-28) Arterial Blood Base Excess 9 mmol/L (-3-3) 8 mmol/L (-3-3) FiO2 30 50 White Blood Count 4.0 x10^3/uL (4.0-11.0) Red Blood Count 3.80 x10^6/uL (4.30-5.70) Hemoglobin 8.0 g/dL (13.0-17.5) Hematocrit 26.2 % (39.0-53.0) Mean Corpuscular Volume 69 fL (79-100) Mean Corpuscular Hemoglobin 21 pg (25-35) Mean Corpuscular Hemoglobin Concent 31 g/dL (31-37) Red Cell Distribution Width 24.6 % (11.5-14.5) Platelet Count 217 x10^3/uL (140-400) Neutrophils (%) (Auto) 72 % (31-73) Lymphocytes (%) (Auto) 16 % (24-48) Monocytes (%) (Auto) 12 % (0-9) Eosinophils (%) (Auto) 0 % (0-3) Basophils (%) (Auto) 0 % (0-3) Neutrophils # (Auto) 2.8 x10^3uL (1.8-7.7) Lymphocytes # (Auto) 0.6 x10^3/uL (1.0-4.8) Monocytes # (Auto) 0.5 x10^3/uL (0.0-1.1) Eosinophils # (Auto) 0.0 x10^3/uL (0.0-0.7) Basophils # (Auto) 0.0 x10^3/uL (0.0-0.2) Sodium Level 144 mmol/L (136-145) Potassium Level 5.1 mmol/L (3.5-5.1) Chloride Level 105 mmol/L (98-107) Carbon Dioxide Level 37 mmol/L (21-32) Anion Gap 2 (6-14) Blood Urea Nitrogen 32 mg/dL (8-26) Creatinine 1.5 mg/dL (0.7-1.3) Estimated GFR (Cockcroft-Gault) 47.7 Glucose Level 136 mg/dL (70-99) Calcium Level 9.0 mg/dL (8.5-10.1) Magnesium Level 2.5 mg/dL (1.8-2.4) Microbiology 08/21/18 Blood Culture - Preliminary, Resulted NO GROWTH AFTER 3 DAYS 08/21/18 - Final, Resulted 08/21/18 - Final, Resulted 08/21/18 - Final, Resulted 08/21/18 - Final, Resulted 08/21/18 - Final, Resulted 08/21/18 - Final, Resulted 08/21/18 Gram Stain Evaluation - Final, Resulted 08/21/18 Sputum Culture, Resulted Pending Medications Current Medications Albuterol/ Ipratropium (Duoneb) 3 ml Q6HRS NEB Last administered on 08/20/18at 20:40; Start 08/17/18 at 18:00; Stop 08/20/18 at 21:50; Status DC Enoxaparin Sodium (Lovenox 100mg Syringe) 100 mg 1X ONCE SQ Last administered on 08/17/18at 18:15; Start 08/17/18 at 17:30; Stop 08/17/18 at 17:31; Status DC Ondansetron HCl (Zofran) 4 mg PRN Q8HRS PRN IV NAUSEA/VOMITING; Start at 17:30; Stop 08/18/18 at 17:29; Status DC Acetaminophen (Tylenol) 650 mg PRN Q4HRS PRN PO FEVER Last administered on at 06:24; Start 08/17/18 at 17:30; Stop 08/18/18 at 17:29; Status DC Enoxaparin Sodium (Lovenox 100mg Syringe) 100 mg Q12HR SQ Last administered on 08/19/18at 08:33; Start 08/18/18 at 09:00; Stop 08/19/18 at 16:36; Status DC Warfarin Sodium (Coumadin) 5 mg DAILY16 PO ; Start 08/18/18 at 16:00; Stop at 16:00; Status DC Warfarin Sodium (Coumadin Per Physician) 1 each PRN DAILY PRN MC SEE COMMENTS Last administered on 08/19/18at 15:11; Start 08/18/18 at 08:30; Stop 08/20/18 at 08:46; Status DC Warfarin Sodium (Coumadin) 10 mg DAILY16 PO Last administered on 08/18/18at 17: 10; Start 08/18/18 at 16:00; Stop 08/19/18 at 16:36; Status DC Budesonide (Pulmicort) 0.5 mg RTBID NEB Last administered on 08/24/18at 09:50; Start 08/18/18 at 08:45 Famotidine (Pepcid) 20 mg QHS PO Last administered on 08/22/18at 20:51; Start 08/18/18 at 21:00; Stop 08/24/18 at 08:04; Status DC Acetaminophen (Tylenol) 650 mg PRN Q6HRS PRN PO MODERATE PAIN Last administered on 08/20/18at 11:20; Start 08/20/18 at 08:45; Stop 08/21/18 at 00 :36; Status DC Acetaminophen/ Codeine Phosphate (Tylenol #3) 1 tab PRN Q6HRS PRN PO PAIN Last administered on 08/21/18at 05:18; Start 08/20/18 at 20:00; Stop 08/21/18 at 08 :27; Status DC Guaifenesin (Mucinex) 600 mg BID PO Last administered on 08/24/18at 09:23; Start 08/20/18 at 21:00 Albuterol Sulfate (Ventolin Neb Soln) 2.5 mg PRN Q2HR PRN NEB SHORTNESS OF BREATH Last administered on 08/22/18at 16:23; Start 08/20/18 at 22:00 Albuterol/ Ipratropium (Duoneb) 3 ml RTQID NEB Last administered on 08/22/18at 07:36; Start 08/21/18 at 08:00; Stop 08/22/18 at 16:03; Status DC Levofloxacin/ Dextrose 150 ml @ 100 mls/hr QHS IV Last administered on at 20:51; Start 08/21/18 at 00:00; Stop 08/23/18 at 13:27; Status DC Methylprednisolone Sodium Succinate (SOLU-Medrol 125MG VIAL) 60 mg 1X ONCE IV Last administered on 08/21/18at 00:05; Start 08/21/18 at 00:00; Stop 08/21/18 at 00:01; Status DC Vancomycin HCl 1.5 gm/Sodium Chloride 500 ml @ 250 mls/hr Q12H IV ; Start at 23:45; Status UNV Vancomycin HCl (Vanco Per Pharmacy) 1 each PRN DAILY PRN MC SEE COMMENTS Last administered on 08/22/18at 13:55; Start 08/20/18 at 23:45; Stop 08/23/18 at 09 :35; Status DC Vancomycin HCl 2 gm/Sodium Chloride 500 ml @ 250 mls/hr 1X ONCE IV Last administered on 08/21/18at 02:03; Start 08/21/18 at 00:00; Stop 08/21/18 at 01 :59; Status DC Acetaminophen (Tylenol) 650 mg PRN Q4HRS PRN PO FEVER Last administered on at 01:59; Start 08/21/18 at 00:45 Vancomycin HCl 1.5 gm/Sodium Chloride 500 ml @ 250 mls/hr Q8H IV Last administered on 08/23/18at 02:36; Start 08/21/18 at 10:00; Stop 08/23/18 at 09 :34; Status DC Vancomycin HCl (Vancomycin Trough Level) 1 each 1X ONCE MC Last administered on 08/22/18at 02:52; Start 08/22/18 at 01:30; Stop 08/22/18 at 01:31; Status DC Acetaminophen/ Codeine Phosphate (Tylenol #3) 2 tab PRN Q6HRS PRN PO PAIN Last administered on 08/22/18at 02:55; Start 08/21/18 at 08:30 Dexamethasone (Decadron) 8 mg DAILYWBKFT PO Last administered on 08/22/18at 08: 18; Start 08/21/18 at 12:00; Stop 08/22/18 at 12:11; Status DC Budesonide (Pulmicort) 0.5 mg 1X ONCE NEB Last administered on 08/21/18at 20: 52; Start 08/21/18 at 21:00; Stop 08/21/18 at 21:01; Status DC Throat Lozenges (Cepacol Sore Throat Lozenge) 1 kathy PRN Q2HRS PRN PO SORE THROAT Last administered on 08/22/18at 05:39; Start 08/21/18 at 23:45 Lorazepam (Ativan) 0.5 mg 1X ONCE PO ; Start 08/22/18 at 12:00; Stop at 12:08; Status DC Dexamethasone (Decadron) 4 mg DAILYWBKFT PO ; Start 08/23/18 at 08:00; Stop at 09:34; Status DC Albuterol/ Ipratropium (Duoneb) 3 ml [id number] NEB Last administered on at 09:50; Start 08/22/18 at 21:00 Furosemide (Lasix) 40 mg 1X ONCE IVP Last administered on 08/22/18at 16:17; Start 08/22/18 at 16:00; Stop 08/22/18 at 16:04; Status DC Lorazepam (Ativan) 1 mg PRN Q4HRS PRN IV ANXIETY / AGITATION Last administered on 08/23/18at 22:13; Start 08/22/18 at 19:30 Haloperidol Lactate (Haldol Inj) 5 mg Q8HRS IVP Last administered on at 06:46; Start 08/23/18 at 10:00 Haloperidol Lactate (Haldol Inj) 5 mg PRN Q4HRS PRN IVP AGITATION Last administered on 08/23/18 14:42; Start 08/23/18 at 09:00 Iron Sucrose 500 mg/Sodium Chloride 275 ml @ 78.571 mls/ hr 1X ONCE IV Last administered on 08/23/18at 09:45; Start 08/23/18 at 09:30; Stop 08/23/18 at 12 :59; Status DC Methylprednisolone Sodium Succinate (SOLU-Medrol 40MG VIAL) 40 mg Q12HR IV Last administered on 08/24/18 09:03; Start 08/23/18 at 21:00 Acetaminophen (Tylenol Supp) 650 mg PRN Q6HRS PRN UT MILD PAIN / TEMP Last administered on 08/23/18at 12:27; Start 08/23/18 at 12:00 Pantoprazole Sodium (PROTONIX VIAL for IV PUSH) 40 mg BID IVP Last administered on 08/24/18 09:03; Start 08/23/18 at 13:00 Linezolid/Dextrose 300 ml @ 300 mls/hr Q12HR IV Last administered on at 09:04; Start 08/23/18 at 14:00 Piperacillin Sod/ Tazobactam Sod 3.375 gm/Sodium Chloride 50 ml @ 100 mls/hr Q6HRS IV Last administered on 08/24/18at 05:56; Start 08/23/18 at 18:00 Doxycycline Hyclate 100 mg/ Dextrose 100 ml @ 50 mls/hr Q12HR IV ; Start 08/23 at 21:00; Status Cancel Dexmedetomidine HCl 200 mcg/ Sodium Chloride 50 ml @ 0 mls/hr CONT PRN IV PER PROTOCOL Last administered on 08/24/18at 10:48; Start 08/23/18 at 15:15 Sodium Chloride 500 ml @ 500 mls/hr 1X PRN PRN IV SEE COMMENTS; Start at 15:15 Atropine Sulfate (ATROPINE 0.5mg SYRINGE) 0.5 mg PRN Q5MIN PRN IV SEE COMMENTS ; Start 08/23/18 at 15:15 Lactobacillus Rhamnosus (Culturelle) 1 cap BID PO ; Start 08/24/18 at 09:00; Status Cancel Dextrose/Sodium Chloride 1,000 ml @ 100 mls/hr Q10H IV ; Start 08/24/18 at 11: 00 Active Scripts Active Reported Warfarin Sodium 1 Mg Tablet 12.5 Mg PO QTUTHSA Warfarin Sodium 5 Mg Tablet 10 Mg PO QMWF Proair Hfa Inhaler (Albuterol Sulfate) 8.5 Gm Hfa.aer.ad 1 Puff INH PRN Q6HRS PRN Symbicort 80-4.5 Mcg Inhaler (Budesonide/Formoterol Fumarate) 10.2 Gm Hfa.aer.ad 2 Puff IH BID Spiriva (Tiotropium [place]) 18 Mcg Cap.w.dev 1 Cap IH DAILY Losartan Potassium 100 Mg Tablet 100 Mg PO DAILYWSUP Vitals/I & O Vital Sign - Last 24 Hours 08/23/18 08/23/18 08/23/18 08/23/18 11:09 11:58 12:00 13:00 Temp 101.5 98.6 101.5 98.6 Pulse 112 103 Resp 26 24 B/P (MAP) 126/61 (82) 103/58 (73) Pulse Ox 93 91 85 O2 Delivery BiPAP/CPAP BiPAP/CPAP Bi-pap BiPAP/CPAP 08/23/18 08/23/18 08/23/18 08/23/18 13:00 14:00 15:00 15:40 Pulse 91 96 Resp 24 28 B/P (MAP) 124/64 (84) 145/69 (94) Pulse Ox 96 96 92 O2 Delivery Bi-pap BiPAP/CPAP BiPAP/CPAP BiPAP/CPAP 08/23/18 08/23/18 08/23/18 08/23/18 16:00 16:00 17:00 17:42 Temp 98.8 98.8 Pulse 93 89 Resp 24 30 B/P (MAP) 101/59 (73) 121/61 (81) Pulse Ox 96 88 92 O2 Delivery BiPAP/CPAP Bi-pap BiPAP/CPAP BiPAP/CPAP 08/23/18 08/23/18 08/23/18 08/23/18 18:00 19:00 19:50 20:00 Temp 97.7 97.7 Pulse 94 83 85 Resp 30 24 B/P (MAP) 114/57 (76) 95/52 (66) 99/52 (68) Pulse Ox 91 85 90 O2 Delivery BiPAP/CPAP BiPAP/CPAP Bi-pap BiPAP/CPAP 08/23/18 08/23/18 08/23/18 08/23/18 20:00 20:01 21:00 21:02 Pulse 76 Resp 24 B/P (MAP) 92/52 (65) Pulse Ox 85 85 93 85 O2 Delivery BiPAP/CPAP BiPAP/CPAP BiPAP/CPAP BiPAP/CPAP 08/23/18 08/23/18 08/23/18 08/23/18 22:00 23:00 23:43 23:50 Temp 98.4 98.4 Pulse 90 72 Resp 24 24 B/P (MAP) 108/64 (79) 94/56 (69) Pulse Ox 92 93 95 O2 Delivery BiPAP/CPAP BiPAP/CPAP Bi-pap BiPAP/CPAP 08/24/18 08/24/18 08/24/18 08/24/18 00:00 01:00 02:00 02:06 Pulse 66 64 72 Resp 24 24 24 B/P (MAP) 128/69 (88) 127/72 (90) 144/69 (94) Pulse Ox 94 95 96 96 O2 Delivery BiPAP/CPAP BiPAP/CPAP BiPAP/CPAP BiPAP/CPAP 08/24/18 08/24/18 08/24/18/24/18 03:00 03:43 04:00 04:00 Pulse 64 60 Resp 24 24 B/P (MAP) 127/76 (93) 145/80 (101) Pulse Ox 95 96 95 O2 Delivery BiPAP/CPAP BiPAP/CPAP Bi-pap BiPAP/CPAP 08/24/18 08/24/18 08/24/18 08/24/18 05:00 06:00 07:00 08:00 Temp 97.5 97.5 Pulse 99 67 54 51 Resp 24 24 14 14 B/P (MAP) 140/81 (100) 163/92 (115) 151/83 (105) 154/81 (105) Pulse Ox 90 97 98 98 O2 Delivery Venturi Mask BiPAP/CPAP BiPAP/CPAP BiPAP/CPAP 08/24/18 08/24/18 08/24/18 09:00 09:50 10:00 Pulse 48 78 Resp 24 18 B/P (MAP) 159/87 (111) 156/87 (110) Pulse Ox 98 100 100 O2 Delivery BiPAP/CPAP BiPAP/CPAP BiPAP/CPAP Intake and Output 08/23/18 08/23/18 08/24/18 15:01 23:01 07:01 Intake Total 0 ml 1354 ml Output Total 550 ml 320 ml 240 ml Balance -550 ml -320 ml 1114 ml Problem List Problems Medical Problems: (1) COPD (chronic obstructive pulmonary disease) Status: Acute (2) Hypoxia Status: Acute (3) Pulmonary embolism Status: Acute Assessment Crohns- with anastomotic ulcer, stable COPD- with history of DVTs, on Bipap with worsening oxygenation, prognosis guarded BRAD CHÁVEZ MD Aug 24, 2018 11:15
[2018-08-24] MEDS: IV DEXTROSE 5 %-0.45 % NACL 1,000 ML IV SCH ×2 (11:25→21:48)
[2018-08-24] MEDS: HALOPERIDOL LACTATE 5 MG/ML VIAL. IVP PRN (19:41)
[2018-08-25] VITALS (24 sets, daily range): BP systolic 162–188; BP diastolic 83–110
[2018-08-25] MEDS: DEXMEDETOMIDINE 200 MCG in IV NORMAL SALINE 50ML 48 ML IV PRN ×6 (02:12→20:54)
[2018-08-25] MEDS: PIPERACILLIN/TAZOBACTAM 3.375 GM in IV NORMAL SALINE 50ML 50 ML IV SCH ×3 (05:53→18:14)
[2018-08-25] MEDS: HALOPERIDOL LACTATE 5 MG/ML VIAL. IVP SCH ×3 (05:53→21:52)
[2018-08-25 06:52] LABS: BASO % 1 % (0-3); EOS % 0 % (0-3); HEMATOCRIT 28.8 % (39.0-53.0); HEMOGLOBIN 8.7 g/dL (13.0-17.5); LYMPH % 19 % (24-48); MEAN CORPUSCULAR HEMOGLOBIN 21 pg (25-35); MEAN CORPUSCULAR HGB CONC 30 g/dL (31-37); MEAN CORPUSCULAR VOLUME 69 fL (79-100); MONO # 0.7 x10^3/uL (0.0-1.1); MONO % 12 % (0-9); NEUT # 3.6 x10^3uL (1.8-7.7); NEUT % 68 % (31-73); PLATELET COUNT 221 x10^3/uL (140-400); RED CELL DISTRIBUTION WIDTH 25.4 % (11.5-14.5); WHITE BLOOD COUNT 5.3 x10^3/uL (4.0-11.0)
[2018-08-25 07:05] LABS: CALCIUM 8.9 mg/dL (8.5-10.1); CREATININE 1.3 mg/dL (0.7-1.3); GFR 56.3; MAGNESIUM 2.2 mg/dL (1.8-2.4)
[2018-08-25 07:28] LABS: BASE EXCESS ABG 8 mmol/L (-3-3); HCO3 ABG 35 mmol/L (21-28); PO2 ABG 92 mmHg (65-108); SAT O2 ABG 96 % (92-99)
[2018-08-25 07:33] LABS: PCO2 ABG 65 mmHg (35-46)
[2018-08-25 07:34] LABS: FIO2 ABG 30
[2018-08-25] MEDS: BUDESONIDE 0.5 MG/2 ML NEBU. NEB SCH ×2 (07:35→20:08)
[2018-08-25] MEDS: IPRATRPIUM/ALBUTEROL 0.5/2.5MG 3 ML NEBU. NEB SCH ×3 (07:35→20:08)
--- NOTE | 2018-08-25 07:35 | PDOC ---
Infectious Disease Note Subjective Subjective sedated on bipap ROS ROS no n/v/d/sob Vital Sign Vital Signs Vital Signs Date Time Temp Pulse Resp B/P (MAP) Pulse Ox O2 Delivery O2 Flow Rate FiO2 08/25/18 06:00 62 24 175/104 (127) 94 BiPAP/CPAP 08/25/18 04:00 97.6 97.6 08/25/18 04:00 4.0 Physical Exam PHYSICAL EXAM GENERAL: The patient is on BiPAP. Calm. HEENT: Pupils equally round. Normal conjunctivae. Oral exam deferred as he is on BiPAP and unable to view. NECK: Supple. LUNGS: Diminished aeration throughout. HEART: S1 and S2. ABDOMEN: Obese and soft. No grimace or guarding to palpation. Bowel sounds present. EXTREMITIES: Chronic venous stasis changes in the lower extremities bilaterally with small ulcerations, left leg. No cyanosis. SKIN: Warm without generalized rash. NEUROLOGIC: Unresponsive to verbal and tactile stimulation. Labs Lab Laboratory Tests Test 08/24/18 09:50 08/25/18 06:35 O2 Saturation 98 % (92-99) Arterial Blood pH 7.27 (7.35-7.45) Arterial Blood pCO2 at Patient Temp 83 mmHg (35-46) Arterial Blood pO2 at Patient Temp 121 mmHg (65-108) Arterial Blood HCO3 37 mmol/L (21-28) Arterial Blood Base Excess 8 mmol/L (-3-3) FiO2 50 White Blood Count 5.3 x10^3/uL (4.0-11.0) Red Blood Count 4.20 x10^6/uL (4.30-5.70) Hemoglobin 8.7 g/dL (13.0-17.5) Hematocrit 28.8 % (39.0-53.0) Mean Corpuscular Volume 69 fL (79-100) Mean Corpuscular Hemoglobin 21 pg (25-35) Mean Corpuscular Hemoglobin Concent 30 g/dL (31-37) Red Cell Distribution Width 25.4 % (11.5-14.5) Platelet Count 221 x10^3/uL (140-400) Neutrophils (%) (Auto) 68 % (31-73) Lymphocytes (%) (Auto) 19 % (24-48) Monocytes (%) (Auto) 12 % (0-9) Eosinophils (%) (Auto) 0 % (0-3) Basophils (%) (Auto) 1 % (0-3) Neutrophils # (Auto) 3.6 x10^3uL (1.8-7.7) Lymphocytes # (Auto) 1.0 x10^3/uL (1.0-4.8) Monocytes # (Auto) 0.7 x10^3/uL (0.0-1.1) Eosinophils # (Auto) 0.0 x10^3/uL (0.0-0.7) Basophils # (Auto) 0.0 x10^3/uL (0.0-0.2) Sodium Level 142 mmol/L (136-145) Potassium Level 5.0 mmol/L (3.5-5.1) Chloride Level 101 mmol/L (98-107) Carbon Dioxide Level 35 mmol/L (21-32) Anion Gap 6 (6-14) Blood Urea Nitrogen 27 mg/dL (8-26) Creatinine 1.3 mg/dL (0.7-1.3) Estimated GFR (Cockcroft-Gault) 56.3 Glucose Level 213 mg/dL (70-99) Calcium Level 8.9 mg/dL (8.5-10.1) Magnesium Level 2.2 mg/dL (1.8-2.4) Micro ------- GRAM STAIN WHITE BLOOD CELLS Final Moderate GRAM STAIN EPITHELIAL CELLS Final Moderate GRAM STAIN RESULT 1 Final Comment Many gram positive cocci. GRAM STAIN RESULT 2 Final Comment Moderate number of gram negative diplococci. GRAM STAIN RESULT 3 Final Comment Few gram negative cocci GRAM STAIN RESULT 4 Final Comment Few gram variable rods GRAM STAIN EVALUATION Final Comment This specimen is of good quality and is acceptable for routine bacterial culture. Performed at: [facility], [place], [place] [id number] [employer] Supervisor: EMERSON Flaherty MD, Phone: [phone] Objective Assessment 1. Fever. 2. Acute encephalopathy. 3. Acute respiratory failure, now on BiPAP. 4. Crohn's with history of ileocolonic resection and chronic Remicade. Anastomotic ulcer found on recent colonoscopy. 5. Anemia, status post blood transfusion on 08/18/2018. 6. History of deep venous thrombosis and pulmonary embolism, on chronic warfarin that has now been discontinued due to anemia. Plan Plan of Care pancultures abx to Zyvox and Zosyn Monitor labs/temp. f/u culture [facility] Critical ill CATRINA DE MD Aug 25, 2018 07:35
--- NOTE | 2018-08-25 08:20 | RAD ---
Indication:RESP DISTRESS TECHNIQUE:Portable AP chest X-ray COMPARISON:08/20/2018 FINDINGS: Heart is normal in size. Lungs are clear for consolidation. Mild prominence of bronchovascular markings. No pneumothorax or pleural effusion. Visualized bony thorax is within normal limits. IMPRESSION: Findings suggests bronchitis. Electronically signed by: Chandrakant Ansari DO (08/25/2018 8:17 AM) [facility]
[2018-08-25] MEDS: PANTOPRAZOLE IV PUSH 40 MG VIAL. IVP SCH ×2 (08:55→21:52)
[2018-08-25] MEDS: methylPREDNISolone SOD SUCC PF 40 MG/ML VIAL. IV SCH ×2 (08:56→22:04)
--- NOTE | 2018-08-25 09:27 | PDOC ---
PULMONARY PROGRESS NOTES Subjective TRANSFERRED TO ICU 08/22 NOW ON BIPAP SEDATED WITH PRECEDEX Vitals Vital Signs Date Time Temp Pulse Resp B/P (MAP) Pulse Ox O2 Delivery O2 Flow Rate FiO2 08/25/18 09:00 52 25 180/93 (122) 94 BiPAP/CPAP 08/25/18 08:00 97.7 97.7 08/25/18 04:00 4.0 Lungs: Wheezing, Crackles Cardiovascular: S1, S2 Abdomen: Soft Extremities: No Edema Skin: Warm Labs Laboratory Tests Test 08/23/18 12:15 08/23/18 20:24 08/24/18 05:00 08/24/18 09:50 Urine Collection Type U cath Urine Color Yellow Urine Clarity Turbid Urine pH 5.5 Urine Specific [place] 1.025 Urine Protein 30 mg/dL (NEG-TRACE) Urine Glucose (UA) Negative mg/dL (NEG) Urine Ketones (Stick) Trace mg/dL (NEG) Urine Blood Large (NEG) Urine Nitrite Negative (NEG) Urine Bilirubin Negative (NEG) Urine Urobilinogen Dipstick 0.2 mg/dL (0.2 mg/dL) Urine Leukocyte Esterase Small (NEG) Urine RBC Tntc /HPF (0-2) Urine WBC 0 /HPF (0-4) Urine Squamous Epithelial Cells Mod /LPF Urine Amorphous Sediment Present /HPF Urine Bacteria 0 /HPF (0-FEW) Urine Granular Casts Moderate /HPF Urine Mucus Marked /LPF O2 Saturation 81 % (92-99) 98 % (92-99) Arterial Blood pH 7.37 (7.35-7.45) 7.27 (7.35-7.45) Arterial Blood pCO2 at Patient Temp 64 mmHg (35-46) 83 mmHg (35-46) Arterial Blood pO2 at Patient Temp 46 mmHg (65-108) 121 mmHg (65-108) Arterial Blood HCO3 36 mmol/L (21-28) 37 mmol/L (21-28) Arterial Blood Base Excess 9 mmol/L (-3-3) 8 mmol/L (-3-3) FiO2 30 50 White Blood Count 4.0 x10^3/uL (4.0-11.0) Red Blood Count 3.80 x10^6/uL (4.30-5.70) Hemoglobin 8.0 g/dL (13.0-17.5) Hematocrit 26.2 % (39.0-53.0) Mean Corpuscular Volume 69 fL (79-100) Mean Corpuscular Hemoglobin 21 pg (25-35) Mean Corpuscular Hemoglobin Concent 31 g/dL (31-37) Red Cell Distribution Width 24.6 % (11.5-14.5) Platelet Count 217 x10^3/uL (140-400) Neutrophils (%) (Auto) 72 % (31-73) Lymphocytes (%) (Auto) 16 % (24-48) Monocytes (%) (Auto) 12 % (0-9) Eosinophils (%) (Auto) 0 % (0-3) Basophils (%) (Auto) 0 % (0-3) Neutrophils # (Auto) 2.8 x10^3uL (1.8-7.7) Lymphocytes # (Auto) 0.6 x10^3/uL (1.0-4.8) Monocytes # (Auto) 0.5 x10^3/uL (0.0-1.1) Eosinophils # (Auto) 0.0 x10^3/uL (0.0-0.7) Basophils # (Auto) 0.0 x10^3/uL (0.0-0.2) Sodium Level 144 mmol/L (136-145) Potassium Level 5.1 mmol/L (3.5-5.1) Chloride Level 105 mmol/L (98-107) Carbon Dioxide Level 37 mmol/L (21-32) Anion Gap 2 (6-14) Blood Urea Nitrogen 32 mg/dL (8-26) Creatinine 1.5 mg/dL (0.7-1.3) Estimated GFR (Cockcroft-Gault) 47.7 Glucose Level 136 mg/dL (70-99) Calcium Level 9.0 mg/dL (8.5-10.1) Magnesium Level 2.5 mg/dL (1.8-2.4) Test 08/25/18 06:35 08/25/18 07:20 White Blood Count 5.3 x10^3/uL (4.0-11.0) Red Blood Count 4.20 x10^6/uL (4.30-5.70) Hemoglobin 8.7 g/dL (13.0-17.5) Hematocrit 28.8 % (39.0-53.0) Mean Corpuscular Volume 69 fL (79-100) Mean Corpuscular Hemoglobin 21 pg (25-35) Mean Corpuscular Hemoglobin Concent 30 g/dL (31-37) Red Cell Distribution Width 25.4 % (11.5-14.5) Platelet Count 221 x10^3/uL (140-400) Neutrophils (%) (Auto) 68 % (31-73) Lymphocytes (%) (Auto) 19 % (24-48) Monocytes (%) (Auto) 12 % (0-9) Eosinophils (%) (Auto) 0 % (0-3) Basophils (%) (Auto) 1 % (0-3) Neutrophils # (Auto) 3.6 x10^3uL (1.8-7.7) Lymphocytes # (Auto) 1.0 x10^3/uL (1.0-4.8) Monocytes # (Auto) 0.7 x10^3/uL (0.0-1.1) Eosinophils # (Auto) 0.0 x10^3/uL (0.0-0.7) Basophils # (Auto) 0.0 x10^3/uL (0.0-0.2) Sodium Level 142 mmol/L (136-145) Potassium Level 5.0 mmol/L (3.5-5.1) Chloride Level 101 mmol/L (98-107) Carbon Dioxide Level 35 mmol/L (21-32) Anion Gap 6 (6-14) Blood Urea Nitrogen 27 mg/dL (8-26) Creatinine 1.3 mg/dL (0.7-1.3) Estimated GFR (Cockcroft-Gault) 56.3 Glucose Level 213 mg/dL (70-99) Calcium Level 8.9 mg/dL (8.5-10.1) Magnesium Level 2.2 mg/dL (1.8-2.4) O2 Saturation 96 % (92-99) Arterial Blood pH 7.35 (7.35-7.45) Arterial Blood pCO2 at Patient Temp 65 mmHg (35-46) Arterial Blood pO2 at Patient Temp 92 mmHg (65-108) Arterial Blood HCO3 35 mmol/L (21-28) Arterial Blood Base Excess 8 mmol/L (-3-3) FiO2 30 Laboratory Tests Test 08/24/18 09:50 08/25/18 06:35 08/25/18 07:20 O2 Saturation 98 % (92-99) 96 % (92-99) Arterial Blood pH 7.27 (7.35-7.45) 7.35 (7.35-7.45) Arterial Blood pCO2 at Patient Temp 83 mmHg (35-46) 65 mmHg (35-46) Arterial Blood pO2 at Patient Temp 121 mmHg (65-108) 92 mmHg (65-108) Arterial Blood HCO3 37 mmol/L (21-28) 35 mmol/L (21-28) Arterial Blood Base Excess 8 mmol/L (-3-3) 8 mmol/L (-3-3) FiO2 50 30 White Blood Count 5.3 x10^3/uL (4.0-11.0) Red Blood Count 4.20 x10^6/uL (4.30-5.70) Hemoglobin 8.7 g/dL (13.0-17.5) Hematocrit 28.8 % (39.0-53.0) Mean Corpuscular Volume 69 fL (79-100) Mean Corpuscular Hemoglobin 21 pg (25-35) Mean Corpuscular Hemoglobin Concent 30 g/dL (31-37) Red Cell Distribution Width 25.4 % (11.5-14.5) Platelet Count 221 x10^3/uL (140-400) Neutrophils (%) (Auto) 68 % (31-73) Lymphocytes (%) (Auto) 19 % (24-48) Monocytes (%) (Auto) 12 % (0-9) Eosinophils (%) (Auto) 0 % (0-3) Basophils (%) (Auto) 1 % (0-3) Neutrophils # (Auto) 3.6 x10^3uL (1.8-7.7) Lymphocytes # (Auto) 1.0 x10^3/uL (1.0-4.8) Monocytes # (Auto) 0.7 x10^3/uL (0.0-1.1) Eosinophils # (Auto) 0.0 x10^3/uL (0.0-0.7) Basophils # (Auto) 0.0 x10^3/uL (0.0-0.2) Sodium Level 142 mmol/L (136-145) Potassium Level 5.0 mmol/L (3.5-5.1) Chloride Level 101 mmol/L (98-107) Carbon Dioxide Level 35 mmol/L (21-32) Anion Gap 6 (6-14) Blood Urea Nitrogen 27 mg/dL (8-26) Creatinine 1.3 mg/dL (0.7-1.3) Estimated GFR (Cockcroft-Gault) 56.3 Glucose Level 213 mg/dL (70-99) Calcium Level 8.9 mg/dL (8.5-10.1) Magnesium Level 2.2 mg/dL (1.8-2.4) Medications Active Scripts Medications Dose Route/Sig Max Daily Dose Days Date Category Warfarin Sodium 1 Mg Tablet 12.5 Mg PO QTUTHSA 08/18/18 Reported Warfarin Sodium 5 Mg Tablet 10 Mg PO QMWF 08/18/18 Reported Proair Hfa Inhaler (Albuterol Sulfate) 8.5 Gm Hfa.aer.ad 1 Puff INH PRN Q6HRS PRN 06/19/18 Reported Symbicort 80-4.5 Mcg Inhaler (Budesonide/Formoterol Fumarate) 10.2 Gm Hfa.aer.ad 2 Puff IH BID 06/19/18 Reported Spiriva (Tiotropium Klemme) 18 Mcg Cap.w.dev 1 Cap IH DAILY 06/19/18 Reported Losartan Potassium 100 Mg Tablet 100 Mg PO DAILYWSUP 06/19/18 Reported Impression . IMPRESSION: 1. Abnormal V/Q scan read out as intermediate probability with an abnormal chest x-ray at the time of the V/Q scan. The x-ray revealed pulmonary edema. 2. History of deep venous thrombosis and pulmonary embolism. 3. Acute exacerbation of chronic obstructive pulmonary disease. 4. Acute on chronic hypercapnic respiratory failure. 5. Chronic anemia with current acute drop in hemoglobin. 6. Crohn's disease. 7. Nephrolithiasis. 8. Questionable cholelithiasis. 9. Chronic immunosuppression. The patient is on Remicade. 10. FEVER 11. AECOPD VENOUS DOPPLERS Impression: No evidence of DVT in the visualized bilateral lower extremity venous system. 08/23 CXR NO INFILTRATES Plan . NOW SEDATED ON PRECEDEX D/W TRENT DE AND KYLER continue 26/04 R 24 30 this AM VM 50% for 45 mins. did okay PRN Haldol antibiotics and steroids/nebs CONTRERAS MENESES MD Aug 25, 2018 09:27
[2018-08-25] MEDS: IV DEXTROSE 5 %-0.45 % NACL 1,000 ML IV SCH ×2 (11:44→20:54)
--- NOTE | 2018-08-25 13:39 | PDOC ---
Provider Note Provider Note sedated for bipap, bp high- output , renal fx better - will add iv vasotec, steroids contributing to bp KANWAL AMADO MD Aug 25, 2018 13:39
[2018-08-25] MEDS ORDERED: ENALAPRILAT 1.25 MG/ML VIAL. IVP ONE (14:15)
[2018-08-25] MEDS: ENALAPRILAT 1.25 MG/ML VIAL. IVP SCH (18:14)
[2018-08-26] VITALS (25 sets, daily range): BP systolic 147–216; BP diastolic 71–102
[2018-08-26] MEDS: ENALAPRILAT 1.25 MG/ML VIAL. IVP SCH ×4 (00:44→17:34)
[2018-08-26] MEDS: PIPERACILLIN/TAZOBACTAM 3.375 GM in IV NORMAL SALINE 50ML 50 ML IV SCH ×4 (00:45→17:33)
[2018-08-26] MEDS: DEXMEDETOMIDINE 200 MCG in IV NORMAL SALINE 50ML 48 ML IV PRN ×8 (01:26→20:45)
[2018-08-26] MEDS: HALOPERIDOL LACTATE 5 MG/ML VIAL. IVP SCH ×2 (05:26→13:46)
[2018-08-26] MEDS: hydrALAZINE 20 MG/ML VIAL. IVP PRN ×3 (06:01→14:06)
[2018-08-26 06:42] LABS: BASO % 0 % (0-3); EOS % 0 % (0-3); HEMATOCRIT 30.4 % (39.0-53.0); HEMOGLOBIN 8.9 g/dL (13.0-17.5); LYMPH # 0.9 x10^3/uL (1.0-4.8); LYMPH % 15 % (24-48); MEAN CORPUSCULAR HEMOGLOBIN 20 pg (25-35); MEAN CORPUSCULAR HGB CONC 29 g/dL (31-37); MEAN CORPUSCULAR VOLUME 69 fL (79-100); MONO # 0.5 x10^3/uL (0.0-1.1); MONO % 8 % (0-9); NEUT # 4.8 x10^3uL (1.8-7.7); NEUT % 77 % (31-73); PLATELET COUNT 213 x10^3/uL (140-400); RED BLOOD COUNT 4.44 x10^6/uL (4.30-5.70); RED CELL DISTRIBUTION WIDTH 25.5 % (11.5-14.5); WHITE BLOOD COUNT 6.3 x10^3/uL (4.0-11.0)
[2018-08-26] MEDS: BUDESONIDE 0.5 MG/2 ML NEBU. NEB SCH ×2 (07:39→19:42)
[2018-08-26] MEDS: IPRATRPIUM/ALBUTEROL 0.5/2.5MG 3 ML NEBU. NEB SCH ×3 (07:39→19:33)
--- NOTE | 2018-08-26 08:06 | PDOC ---
Infectious Disease Note Subjective Subjective sedated on bipap ROS ROS no n/v/d/fever Vital Sign Vital Signs Vital Signs Date Time Temp Pulse Resp B/P (MAP) Pulse Ox O2 Delivery O2 Flow Rate FiO2 08/26/18 07:39 95 BiPAP/CPAP 08/26/18 06:01 51 216/97 08/26/18 06:00 32 08/26/18 04:00 97.1 97.1 Physical Exam PHYSICAL EXAM GENERAL: The patient is on BiPAP. Calm. HEENT: Pupils equally round. Normal conjunctivae. Oral exam deferred as he is on BiPAP and unable to view. NECK: Supple. LUNGS: Diminished aeration throughout. HEART: S1 and S2. ABDOMEN: Obese and soft. No grimace or guarding to palpation. Bowel sounds present. EXTREMITIES: Chronic venous stasis changes in the lower extremities bilaterally with small ulcerations, left leg. No cyanosis. SKIN: Warm without generalized rash. NEUROLOGIC: Unresponsive to verbal and tactile stimulation. Labs Lab Laboratory Tests Test 08/26/18 06:00 White Blood Count 6.3 x10^3/uL (4.0-11.0) Red Blood Count 4.44 x10^6/uL (4.30-5.70) Hemoglobin 8.9 g/dL (13.0-17.5) Hematocrit 30.4 % (39.0-53.0) Mean Corpuscular Volume 69 fL (79-100) Mean Corpuscular Hemoglobin 20 pg (25-35) Mean Corpuscular Hemoglobin Concent 29 g/dL (31-37) Red Cell Distribution Width 25.5 % (11.5-14.5) Platelet Count 213 x10^3/uL (140-400) Neutrophils (%) (Auto) 77 % (31-73) Lymphocytes (%) (Auto) 15 % (24-48) Monocytes (%) (Auto) 8 % (0-9) Eosinophils (%) (Auto) 0 % (0-3) Basophils (%) (Auto) 0 % (0-3) Neutrophils # (Auto) 4.8 x10^3uL (1.8-7.7) Lymphocytes # (Auto) 0.9 x10^3/uL (1.0-4.8) Monocytes # (Auto) 0.5 x10^3/uL (0.0-1.1) Eosinophils # (Auto) 0.0 x10^3/uL (0.0-0.7) Basophils # (Auto) 0.0 x10^3/uL (0.0-0.2) Sodium Level 142 mmol/L (136-145) Potassium Level 5.0 mmol/L (3.5-5.1) Chloride Level 102 mmol/L (98-107) Carbon Dioxide Level 35 mmol/L (21-32) Anion Gap 5 (6-14) Blood Urea Nitrogen 22 mg/dL (8-26) Creatinine 1.2 mg/dL (0.7-1.3) Estimated GFR (Cockcroft-Gault) 61.8 Glucose Level 225 mg/dL (70-99) Calcium Level 8.5 mg/dL (8.5-10.1) Magnesium Level 2.0 mg/dL (1.8-2.4) Micro ------- GRAM STAIN WHITE BLOOD CELLS Final Moderate GRAM STAIN EPITHELIAL CELLS Final Moderate GRAM STAIN RESULT 1 Final Comment Many gram positive cocci. GRAM STAIN RESULT 2 Final Comment Moderate number of gram negative diplococci. GRAM STAIN RESULT 3 Final Comment Few gram negative cocci GRAM STAIN RESULT 4 Final Comment Few gram variable rods GRAM STAIN EVALUATION Final Comment This specimen is of good quality and is acceptable for routine bacterial culture. Performed at: [facility], [place], [place] [id number] Trial Justice: EMERSON Flaherty MD, Phone: [phone] Objective Assessment 1. Fever. 2. Acute encephalopathy. 3. Acute respiratory failure, now on BiPAP. 4. Crohn's with history of ileocolonic resection and chronic Remicade. Anastomotic ulcer found on recent colonoscopy. 5. Anemia, status post blood transfusion on 08/18/2018. 6. History of deep venous thrombosis and pulmonary embolism, on chronic warfarin that has now been discontinued due to anemia. Plan Plan of Care pancultures abx to Zyvox and Zosyn Monitor labs/temp. f/u culture results supporitve care D/w nursing d/w dr Castro, need ct chest also get urine histo antigen crypto serum antigen add diflucan Critical ill CATRINA DE MD Aug 26, 2018 08:06
--- NOTE | 2018-08-26 08:17 | RAD ---
Portable chest, 08/26/2018: HISTORY: Respiratory distress Comparison is made to yesterday's study the heart size is unchanged. There is minimal patchy prominence of the pulmonary markings suggesting pneumonitis, although there may be a component of atelectasis or scarring. The findings have worsened slightly in the right base. No dense pulmonary consolidation, definite pleural fluid or pneumothorax is seen. IMPRESSION: Minimal patchy bilateral pulmonary opacities. Electronically signed by: Xander Valdez MD (08/26/2018 8:13 AM) [facility]
[2018-08-26] MEDS: IV DEXTROSE 5 %-0.45 % NACL 1,000 ML IV SCH ×2 (08:23→17:33)
[2018-08-26] MEDS: NYSTATIN TOPICAL POWDER 15GM BOTTLE. TP SCH ×2 (08:24→20:44)
[2018-08-26] MEDS: methylPREDNISolone SOD SUCC PF 40 MG/ML VIAL. IV SCH ×2 (08:24→20:44)
[2018-08-26] MEDS: PANTOPRAZOLE IV PUSH 40 MG VIAL. IVP SCH ×2 (08:25→20:44)
[2018-08-26 08:31] LABS: CREATININE 1.2 mg/dL (0.7-1.3); GFR 61.8; POTASSIUM 4.9 mmol/L (3.5-5.1)
[2018-08-26 08:37] LABS: ALBUMIN 2.8 g/dL (3.4-5.0); ALBUMIN/GLOBULIN RATIO 0.6 (1.0-1.7); TOTAL BILIRUBIN 0.5 mg/dL (0.2-1.0); TOTAL PROTEIN 7.3 g/dL (6.4-8.2)
--- NOTE | 2018-08-26 09:08 | PDOC ---
SUBJECTIVE Subjective sedated on bipap, elevated bp overnight, improved with hydralazine OBJECTIVE Objective Reviewed. Vital Signs Vital Signs Date Time Temp Pulse Resp B/P (MAP) Pulse Ox O2 Delivery O2 Flow Rate FiO2 08/26/18 07:39 95 BiPAP/CPAP 08/26/18 06:01 51 216/97 08/26/18 06:00 54 32 199/91 (127) 97 BiPAP/CPAP 08/26/18 05:33 95 BiPAP/CPAP 08/26/18 05:27 43 216/97 08/26/18 05:00 50 24 216/97 (136) 99 BiPAP/CPAP 08/26/18 04:00 Bi-pap 08/26/18 04:00 97.1 48 23 198/102 (134) 98 BiPAP/CPAP 97.1 08/26/18 03:00 70 27 200/97 (131) 98 BiPAP/CPAP 08/26/18 02:39 95 BiPAP/CPAP 08/26/18 02:00 61 27 188/90 (122) 96 BiPAP/CPAP 08/26/18 01:05 67 28 187/94 (125) 94 BiPAP/CPAP 08/26/18 00:44 47 190/89 08/26/18 00:00 98.1 60 24 190/89 (122) 98 BiPAP/CPAP 98.1 08/26/18 00:00 Bi-pap 08/25/18 23:40 95 BiPAP/CPAP 08/25/18 23:00 50 24 178/90 (119) BiPAP/CPAP 08/25/18 22:00 50 24 186/96 (126) 97 BiPAP/CPAP 08/25/18 21:00 50 23 177/93 (121) 96 BiPAP/CPAP 08/25/18 20:09 95 BiPAP/CPAP 08/25/18 20:00 Bi-pap 08/25/18 20:00 97.7 96 32 188/100 (129) 96 BiPAP/CPAP 97.7 08/25/18 19:00 60 23 187/93 (124) 97 BiPAP/CPAP 08/25/18 18:14 52 185/90 08/25/18 18:00 48 23 185/90 (121) 96 BiPAP/CPAP 08/25/18 17:24 96 BiPAP/CPAP 08/25/18 17:00 52 23 183/91 (121) 97 BiPAP/CPAP 08/25/18 16:40 98 BiPAP/CPAP 08/25/18 16:00 98.1 63 24 177/102 (127) 98 BiPAP/CPAP 98.1 08/25/18 16:00 Bi-pap 08/25/18 15:00 48 23 178/87 (117) 95 BiPAP/CPAP 08/25/18 14:20 50 183/89 08/25/18 14:00 67 24 183/89 (120) 93 BiPAP/CPAP 08/25/18 13:00 64 24 179/83 (115) 96 BiPAP/CPAP 08/25/18 12:40 95 BiPAP/CPAP 08/25/18 12:00 97.2 50 23 178/91 (120) 95 BiPAP/CPAP 97.2 08/25/18 11:37 Bi-pap 08/25/18 11:00 51 24 176/86 (116) 96 BiPAP/CPAP 08/25/18 10:00 53 23 186/88 (120) 93 BiPAP/CPAP 08/25/18 09:00 52 25 180/93 (122) 94 BiPAP/CPAP I & O Intake and Output 08/26/18 07:01 Intake Total 3982 ml Output Total 3525 ml Balance 457 ml Intake Oral 30 ml IV Total 3952 ml Output Urine Total 3525 ml PHYSICAL EXAM Physical Exam Sedated on bipap Neck supple Decreased breath sounds bilaterally RRR Abd soft, ND, no pain response to palpation Chronic venous stasis changes in the lower extremities bilaterally with small ulcerations, left leg. ASSESSMENT/PLAN Assessment/Plan Fever of unknown origin, cannot rule out atypical infections d/t immunosuppression Acute encephalopathy. Acute hypoxic respiratory failure, now on BiPAP. Crohn's with history of ileocolonic resection and chronic Remicade. Anastomotic ulcer found on recent colonoscopy. Anemia, status post blood transfusion on 08/18/2018. History of deep venous thrombosis and pulmonary embolism, on chronic warfarin that has now been discontinued due to anemia. ID, pulm following Abx per ID, eval for atypical infections CT chest today All bld cx NTD Prognosis guarded. Pt is critically ill. COMMENT Lab Laboratory Tests Test 08/26/18 06:00 White Blood Count 6.3 x10^3/uL (4.0-11.0) Red Blood Count 4.44 x10^6/uL (4.30-5.70) Hemoglobin 8.9 g/dL (13.0-17.5) Hematocrit 30.4 % (39.0-53.0) Mean Corpuscular Volume 69 fL (79-100) Mean Corpuscular Hemoglobin 20 pg (25-35) Mean Corpuscular Hemoglobin Concent 29 g/dL (31-37) Red Cell Distribution Width 25.5 % (11.5-14.5) Platelet Count 213 x10^3/uL (140-400) Neutrophils (%) (Auto) 77 % (31-73) Lymphocytes (%) (Auto) 15 % (24-48) Monocytes (%) (Auto) 8 % (0-9) Eosinophils (%) (Auto) 0 % (0-3) Basophils (%) (Auto) 0 % (0-3) Neutrophils # (Auto) 4.8 x10^3uL (1.8-7.7) Lymphocytes # (Auto) 0.9 x10^3/uL (1.0-4.8) Monocytes # (Auto) 0.5 x10^3/uL (0.0-1.1) Eosinophils # (Auto) 0.0 x10^3/uL (0.0-0.7) Basophils # (Auto) 0.0 x10^3/uL (0.0-0.2) Sodium Level 144 mmol/L (136-145) Potassium Level 4.9 mmol/L (3.5-5.1) Chloride Level 102 mmol/L (98-107) Carbon Dioxide Level 35 mmol/L (21-32) Anion Gap 7 (6-14) Blood Urea Nitrogen 23 mg/dL (8-26) Creatinine 1.2 mg/dL (0.7-1.3) Estimated GFR (Cockcroft-Gault) 61.8 BUN/Creatinine Ratio 19 (6-20) Glucose Level 222 mg/dL (70-99) Calcium Level 9.0 mg/dL (8.5-10.1) Magnesium Level 2.0 mg/dL (1.8-2.4) Total Bilirubin 0.5 mg/dL (0.2-1.0) Aspartate Amino Transf (AST/SGOT) 25 U/L (15-37) Alanine Aminotransferase (ALT/SGPT) 27 U/L (16-63) Alkaline Phosphatase 43 U/L (46-116) Total Protein 7.3 g/dL (6.4-8.2) Albumin 2.8 g/dL (3.4-5.0) Albumin/Globulin Ratio 0.6 (1.0-1.7) COLLIN ESQUEDA MD Aug 26, 2018 09:08
[2018-08-26 09:10] LABS: BASE EXCESS ABG 9 mmol/L (-3-3); HCO3 ABG 34 mmol/L (21-28); PCO2 ABG 50 mmHg (35-46); PO2 ABG 67 mmHg (65-108); SAT O2 ABG 93 % (92-99)
[2018-08-26 09:13] LABS: FIO2 ABG 30
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
--- NOTE | 2018-08-26 09:29 | PDOC ---
PULMONARY PROGRESS NOTES Subjective TRANSFERRED TO ICU 08/22 OFF BIPAP FEELS BETTER Vitals Vital Signs Date Time Temp Pulse Resp B/P (MAP) Pulse Ox O2 Delivery O2 Flow Rate FiO2 08/26/18 07:39 95 BiPAP/CPAP 08/26/18 06:01 51 216/97 08/26/18 06:00 32 08/26/18 04:00 97.1 97.1 ROS: No Chest Pain Lungs: Wheezing, Crackles Cardiovascular: S1, S2 Abdomen: Soft Extremities: No Edema Skin: Warm Labs Laboratory Tests Test 08/24/18 09:50 08/25/18 06:35 08/25/18 07:20 08/26/18 06:00 O2 Saturation 98 % (92-99) 96 % (92-99) Arterial Blood pH 7.27 (7.35-7.45) 7.35 (7.35-7.45) Arterial Blood pCO2 at Patient Temp 83 mmHg (35-46) 65 mmHg (35-46) Arterial Blood pO2 at Patient Temp 121 mmHg (65-108) 92 mmHg (65-108) Arterial Blood HCO3 37 mmol/L (21-28) 35 mmol/L (21-28) Arterial Blood Base Excess 8 mmol/L (-3-3) 8 mmol/L (-3-3) FiO2 50 30 White Blood Count 5.3 x10^3/uL (4.0-11.0) 6.3 x10^3/uL (4.0-11.0) Red Blood Count 4.20 x10^6/uL (4.30-5.70) 4.44 x10^6/uL (4.30-5.70) Hemoglobin 8.7 g/dL (13.0-17.5) 8.9 g/dL (13.0-17.5) Hematocrit 28.8 % (39.0-53.0) 30.4 % (39.0-53.0) Mean Corpuscular Volume 69 fL (79-100) 69 fL (79-100) Mean Corpuscular Hemoglobin 21 pg (25-35) 20 pg (25-35) Mean Corpuscular Hemoglobin Concent 30 g/dL (31-37) 29 g/dL (31-37) Red Cell Distribution Width 25.4 % (11.5-14.5) 25.5 % (11.5-14.5) Platelet Count 221 x10^3/uL (140-400) 213 x10^3/uL (140-400) Neutrophils (%) (Auto) 68 % (31-73) 77 % (31-73) Lymphocytes (%) (Auto) 19 % (24-48) 15 % (24-48) Monocytes (%) (Auto) 12 % (0-9) 8 % (0-9) Eosinophils (%) (Auto) 0 % (0-3) 0 % (0-3) Basophils (%) (Auto) 1 % (0-3) 0 % (0-3) Neutrophils # (Auto) 3.6 x10^3uL (1.8-7.7) 4.8 x10^3uL (1.8-7.7) Lymphocytes # (Auto) 1.0 x10^3/uL (1.0-4.8) 0.9 x10^3/uL (1.0-4.8) Monocytes # (Auto) 0.7 x10^3/uL (0.0-1.1) 0.5 x10^3/uL (0.0-1.1) Eosinophils # (Auto) 0.0 x10^3/uL (0.0-0.7) 0.0 x10^3/uL (0.0-0.7) Basophils # (Auto) 0.0 x10^3/uL (0.0-0.2) 0.0 x10^3/uL (0.0-0.2) Sodium Level 142 mmol/L (136-145) 144 mmol/L (136-145) Potassium Level 5.0 mmol/L (3.5-5.1) 4.9 mmol/L (3.5-5.1) Chloride Level 101 mmol/L (98-107) 102 mmol/L (98-107) Carbon Dioxide Level 35 mmol/L (21-32) 35 mmol/L (21-32) Anion Gap 6 (6-14) 7 (6-14) Blood Urea Nitrogen 27 mg/dL (8-26) 23 mg/dL (8-26) Creatinine 1.3 mg/dL (0.7-1.3) 1.2 mg/dL (0.7-1.3) Estimated GFR (Cockcroft-Gault) 56.3 61.8 Glucose Level 213 mg/dL (70-99) 222 mg/dL (70-99) Calcium Level 8.9 mg/dL (8.5-10.1) 9.0 mg/dL (8.5-10.1) Magnesium Level 2.2 mg/dL (1.8-2.4) 2.0 mg/dL (1.8-2.4) BUN/Creatinine Ratio 19 (6-20) Total Bilirubin 0.5 mg/dL (0.2-1.0) Aspartate Amino Transf (AST/SGOT) 25 U/L (15-37) Alanine Aminotransferase (ALT/SGPT) 27 U/L (16-63) Alkaline Phosphatase 43 U/L (46-116) Total Protein 7.3 g/dL (6.4-8.2) Albumin 2.8 g/dL (3.4-5.0) Albumin/Globulin Ratio 0.6 (1.0-1.7) Test 08/26/18 09:00 O2 Saturation 93 % (92-99) Arterial Blood pH 7.45 (7.35-7.45) Arterial Blood pCO2 at Patient Temp 50 mmHg (35-46) Arterial Blood pO2 at Patient Temp 67 mmHg (65-108) Arterial Blood HCO3 34 mmol/L (21-28) Arterial Blood Base Excess 9 mmol/L (-3-3) FiO2 30 Laboratory Tests Test 08/26/18 06:00 08/26/18 09:00 White Blood Count 6.3 x10^3/uL (4.0-11.0) Red Blood Count 4.44 x10^6/uL (4.30-5.70) Hemoglobin 8.9 g/dL (13.0-17.5) Hematocrit 30.4 % (39.0-53.0) Mean Corpuscular Volume 69 fL (79-100) Mean Corpuscular Hemoglobin 20 pg (25-35) Mean Corpuscular Hemoglobin Concent 29 g/dL (31-37) Red Cell Distribution Width 25.5 % (11.5-14.5) Platelet Count 213 x10^3/uL (140-400) Neutrophils (%) (Auto) 77 % (31-73) Lymphocytes (%) (Auto) 15 % (24-48) Monocytes (%) (Auto) 8 % (0-9) Eosinophils (%) (Auto) 0 % (0-3) Basophils (%) (Auto) 0 % (0-3) Neutrophils # (Auto) 4.8 x10^3uL (1.8-7.7) Lymphocytes # (Auto) 0.9 x10^3/uL (1.0-4.8) Monocytes # (Auto) 0.5 x10^3/uL (0.0-1.1) Eosinophils # (Auto) 0.0 x10^3/uL (0.0-0.7) Basophils # (Auto) 0.0 x10^3/uL (0.0-0.2) Sodium Level 144 mmol/L (136-145) Potassium Level 4.9 mmol/L (3.5-5.1) Chloride Level 102 mmol/L (98-107) Carbon Dioxide Level 35 mmol/L (21-32) Anion Gap 7 (6-14) Blood Urea Nitrogen 23 mg/dL (8-26) Creatinine 1.2 mg/dL (0.7-1.3) Estimated GFR (Cockcroft-Gault) 61.8 BUN/Creatinine Ratio 19 (6-20) Glucose Level 222 mg/dL (70-99) Calcium Level 9.0 mg/dL (8.5-10.1) Magnesium Level 2.0 mg/dL (1.8-2.4) Total Bilirubin 0.5 mg/dL (0.2-1.0) Aspartate Amino Transf (AST/SGOT) 25 U/L (15-37) Alanine Aminotransferase (ALT/SGPT) 27 U/L (16-63) Alkaline Phosphatase 43 U/L (46-116) Total Protein 7.3 g/dL (6.4-8.2) Albumin 2.8 g/dL (3.4-5.0) Albumin/Globulin Ratio 0.6 (1.0-1.7) O2 Saturation 93 % (92-99) Arterial Blood pH 7.45 (7.35-7.45) Arterial Blood pCO2 at Patient Temp 50 mmHg (35-46) Arterial Blood pO2 at Patient Temp 67 mmHg (65-108) Arterial Blood HCO3 34 mmol/L (21-28) Arterial Blood Base Excess 9 mmol/L (-3-3) FiO2 30 Medications Active Scripts Medications Dose Route/Sig Max Daily Dose Days Date Category Warfarin Sodium 1 Mg Tablet 12.5 Mg PO QTUTHSA 08/18/18 Reported Warfarin Sodium 5 Mg Tablet 10 Mg PO QMWF 08/18/18 Reported Proair Hfa Inhaler (Albuterol Sulfate) 8.5 Gm Hfa.aer.ad 1 Puff INH PRN Q6HRS PRN 06/19/18 Reported Symbicort 80-4.5 Mcg Inhaler (Budesonide/Formoterol Fumarate) 10.2 Gm Hfa.aer.ad 2 Puff IH BID 06/19/18 Reported Spiriva (Tiotropium [place]) 18 Mcg Cap.w.dev 1 Cap IH DAILY 06/19/18 Reported Losartan Potassium 100 Mg Tablet 100 Mg PO DAILYWSUP 06/19/18 Reported Impression . IMPRESSION: 1. Abnormal V/Q scan read out as intermediate probability with an abnormal chest x-ray at the time of the V/Q scan. The x-ray revealed pulmonary edema. 2. History of deep venous thrombosis and pulmonary embolism. 3. Acute exacerbation of chronic obstructive pulmonary disease. 4. Acute on chronic hypercapnic respiratory failure. 5. Chronic anemia with current acute drop in hemoglobin. 6. Crohn's disease. 7. Nephrolithiasis. 8. Questionable cholelithiasis. 9. Chronic immunosuppression. The patient is on Remicade. 10. FEVER 11. AECOPD VENOUS DOPPLERS Impression: No evidence of DVT in the visualized bilateral lower extremity venous system. 08/23 CXR NO INFILTRATES REVIEWED CT CHEST 08/26 MILD INFILTRATES IM AM NOT IMPRESSED Plan . NOW SEDATED ON PRECEDEX WILL TRY TO DECREASE D/W TRENT DE AND [facility] OF CHEST I DON'T THINK ANY MAJOR INFECTION IN LUNGS PRN BIPAP ANTIBX VENTURI MASK DURING DAY, SAT OF 88% OK FOR PT ABG NOTED IT IS BETTER CONTRERAS MENESES MD Aug 26, 2018 09:29
[2018-08-26] MEDS: FLUCONAZOLE 400MG/200ML PREMIX 200 ML IV SCH (10:06)
[2018-08-26] MEDS: ACETAMINOPHEN 325 MG TABLET. PO PRN (11:10)
--- NOTE | 2018-08-26 11:52 | RAD ---
CT CHEST WO CONTRAST Indication: Hypoxia, iodine allergy, no priors for comparison. Shortness of breath for 2 weeks. Exposure: One or more of the following individualized dose reduction techniques were utilized for this examination: 1. Automated exposure control 2. Adjustment of the mA and/or kV according to patient size 3. Use of iterative reconstruction technique. Comparison: None available Contrast: None FINDINGS: There is some image degradation due to motion. Vascular structures: Limited exam without contrast. No evidence of thoracic aortic aneurysm. Lymph nodes: Small mediastinal lymph nodes are identified, precarinal nodes and pretracheal nodes measure up to 12 mm short axis. Fullness of the sammi bilaterally may be vascular, but cannot exclude hilar lymph node enlargement without contrast. No significant axillary lymph node enlargement. Thyroid gland:Visualized aspect is unremarkable. Heart: Enlarged Esophagus: Unremarkable Pleural spaces: Very small right pleural effusion. Lungs: Small nodular opacities with linear components identified in the right upper lobe, suggestive tree-in-bud morphology. There are also some small scattered opacities within the right lower lobe and right middle lobe and in the left lower lobe and to a lesser extent left upper lobe and lingula. No dense airspace consolidation. There is some more focal opacities at the left lower lobe, may represent atelectasis. Trachea and central airways: Patent Spine: Degenerative spondylosis. Right convexity thoracic scoliosis. Bones: No destructive process. Upper abdomen: Slices obtained through the upper most abdomen are limited by the noncontrast technique. Multiple gallstones are identified. External Soft Tissue: No acute findings. Impression: 1. Numerous small opacities throughout both lungs, at least some of which demonstrate a tree-in-bud morphology. These may be of inflammatory or infectious in nature, but other etiologies are difficult to exclude. Therefore, recommend short-term follow-up CT chest after acute treatment for further evaluation. 2. Mildly enlarged mediastinal lymph nodes. 3. Small right pleural effusion. 4. Cholelithiasis. Electronically signed by: Rajan Garcia MD (08/26/2018 11:48 AM) [facility]
[2018-08-26] MEDS ORDERED: hydrALAZINE 20 MG/ML VIAL. IVP PRN (16:30)
[2018-08-26] MEDS: HALOPERIDOL LACTATE 5 MG/ML VIAL. IVP PRN (18:51)
[2018-08-26] MEDS: ALBUTEROL SULFATE 2.5 MG/3 ML NEBU. NEB PRN (19:33)
[2018-08-27] VITALS (24 sets, daily range): BP systolic 140–199; BP diastolic 64–96
[2018-08-27] MEDS: PIPERACILLIN/TAZOBACTAM 3.375 GM in IV NORMAL SALINE 50ML 50 ML IV SCH ×4 (00:17→17:45)
[2018-08-27] MEDS: ENALAPRILAT 1.25 MG/ML VIAL. IVP SCH ×4 (00:18→17:46)
[2018-08-27] MEDS: HALOPERIDOL LACTATE 5 MG/ML VIAL. IVP SCH ×2 (01:34→05:26)
[2018-08-27] MEDS: DEXMEDETOMIDINE 200 MCG in IV NORMAL SALINE 50ML 48 ML IV PRN ×2 (01:35→05:21)
[2018-08-27] MEDS: hydrALAZINE 20 MG/ML VIAL. IVP PRN ×4 (03:10→22:37)
[2018-08-27] MEDS: IV DEXTROSE 5 %-0.45 % NACL 1,000 ML IV SCH ×2 (05:21→07:47)
--- NOTE | 2018-08-27 07:39 | PDOC ---
Infectious Disease Note Subjective Subjective sedated on bipap ROS ROS no n/v/d/fever Vital Sign Vital Signs Vital Signs Date Time Temp Pulse Resp B/P (MAP) Pulse Ox O2 Delivery O2 Flow Rate FiO2 08/27/18 06:00 73 27 182/80 (114) 100 BiPAP/CPAP 9.0 08/27/18 04:00 99.0 99.0 Physical Exam PHYSICAL EXAM GENERAL: The patient is on BiPAP. Calm. HEENT: Pupils equally round. Normal conjunctivae. Oral exam deferred as he is on BiPAP and unable to view. NECK: Supple. LUNGS: Diminished aeration throughout. HEART: S1 and S2. ABDOMEN: Obese and soft. No grimace or guarding to palpation. Bowel sounds present. EXTREMITIES: Chronic venous stasis changes in the lower extremities bilaterally with small ulcerations, left leg. No cyanosis. SKIN: Warm without generalized rash. NEUROLOGIC: Unresponsive to verbal and tactile stimulation. Labs Lab Laboratory Tests Test 08/26/18 09:00 O2 Saturation 93 % (92-99) Arterial Blood pH 7.45 (7.35-7.45) Arterial Blood pCO2 at Patient Temp 50 mmHg (35-46) Arterial Blood pO2 at Patient Temp 67 mmHg (65-108) Arterial Blood HCO3 34 mmol/L (21-28) Arterial Blood Base Excess 9 mmol/L (-3-3) FiO2 30 Micro sputum neg bc neg Objective Assessment 1. Fever. 2. Acute encephalopathy. 3. Acute respiratory failure, now on BiPAP. 4. Crohn's with history of ileocolonic resection and chronic Remicade. Anastomotic ulcer found on recent colonoscopy. 5. Anemia, status post blood transfusion on 08/18/2018. 6. History of deep venous thrombosis and pulmonary embolism, on chronic warfarin that has now been discontinued due to anemia. 7 Possible atypical pulmonary infection Plan Plan of Care pancultures cont Zosyn and diflucan, d/c zyvox, add doxy Monitor labs/temp. f/u culture results supporitve care D/w nursing ct chest noted, bright nodular opacity urine histo antigen crypto serum antigen Critical ill CATRINA DE MD Aug 27, 2018 07:39
[2018-08-27] MEDS: FLUCONAZOLE 400MG/200ML PREMIX 200 ML IV SCH (07:46)
[2018-08-27] MEDS: methylPREDNISolone SOD SUCC PF 40 MG/ML VIAL. IV SCH ×2 (07:46→20:41)
[2018-08-27] MEDS: PANTOPRAZOLE IV PUSH 40 MG VIAL. IVP SCH ×2 (07:46→20:41)
[2018-08-27] MEDS: NYSTATIN TOPICAL POWDER 15GM BOTTLE. TP SCH ×2 (07:47→20:42)
[2018-08-27] MEDS: IPRATRPIUM/ALBUTEROL 0.5/2.5MG 3 ML NEBU. NEB SCH ×3 (08:06→20:06)
--- NOTE | 2018-08-27 08:06 | PDOC ---
SUBJECTIVE Subjective Sedated, on bipap. BP continues to be high. OBJECTIVE Objective Reviewed. CT chest Impression: 1. Numerous small opacities throughout both lungs, at least some of which demonstrate a tree-in-bud morphology. These may be of inflammatory or infectious in nature, but other etiologies are difficult to exclude. Therefore, recommend short-term follow-up CT chest after acute treatment for further evaluation. 2. Mildly enlarged mediastinal lymph nodes. 3. Small right pleural effusion. 4. Cholelithiasis. Vital Signs Vital Signs Date Time Temp Pulse Resp B/P (MAP) Pulse Ox O2 Delivery O2 Flow Rate FiO2 08/27/18 06:00 73 27 182/80 (114) 100 BiPAP/CPAP 9.0 08/27/18 05:36 98 BiPAP/CPAP 08/27/18 05:25 95 188/106 08/27/18 05:00 82 27 180/96 (124) 100 BiPAP/CPAP 9.0 08/27/18 04:00 99.0 49 18 176/86 (116) 100 BiPAP/CPAP 9.0 99.0 08/27/18 04:00 Venturi Mask 9.0 08/27/18 03:10 49 190/90 08/27/18 03:00 51 27 190/90 (123) 100 BiPAP/CPAP 9.0 08/27/18 02:50 100 BiPAP/CPAP 08/27/18 02:00 61 27 177/90 (119) 100 BiPAP/CPAP 9.0 08/27/18 01:00 76 27 177/86 (116) 100 BiPAP/CPAP 9.0 08/27/18 00:18 56 157/79 08/26/18 23:59 98.5 52 24 157/79 (105) 95 BiPAP/CPAP 9.0 98.5 08/26/18 23:59 Venturi Mask 9.0 08/26/18 23:00 87 24 164/83 (110) 95 BiPAP/CPAP 9.0 08/26/18 22:40 97 BiPAP/CPAP 08/26/18 22:00 49 24 180/85 (116) 95 BiPAP/CPAP 9.0 08/26/18 21:00 57 24 174/99 (124) 95 BiPAP/CPAP 9.0 08/26/18 20:00 98.7 71 24 183/76 (111) 98 Venturi Mask 9.0 98.7 08/26/18 20:00 Venturi Mask 9.0 08/26/18 19:28 97 Venturi Mask 9.0 08/26/18 19:00 57 24 180/91 (120) 99 Venturi Mask 9.0 08/26/18 18:15 96 BiPAP/CPAP 08/26/18 18:00 52 24 162/79 (106) 97 BiPAP/CPAP 08/26/18 17:34 51 173/89 08/26/18 17:00 50 24 185/81 (115) 97 BiPAP/CPAP 08/26/18 16:16 96 BiPAP/CPAP 08/26/18 16:00 Bi-pap 08/26/18 16:00 63 24 179/79 (112) 91 BiPAP/CPAP 08/26/18 15:00 60 24 182/80 (114) 91 BiPAP/CPAP 08/26/18 14:19 95 BiPAP/CPAP 08/26/18 14:06 50 204/93 08/26/18 14:00 56 26 170/75 (106) 97 Venturi Mask 9.0 08/26/18 13:00 66 26 187/87 (120) 97 Venturi Mask 9.0 08/26/18 12:59 75 182/86 08/26/18 12:00 98.0 56 24 182/86 (118) 97 Venturi Mask 9.0 98.0 08/26/18 12:00 Venturi Mask 9.0 08/26/18 11:00 92 26 160/86 (110) 97 Venturi Mask 9.0 08/26/18 10:11 66 166/71 08/26/18 10:00 44 24 166/71 (102) 98 Venturi Mask 9.0 08/26/18 09:00 46 32 155/74 (101) 98 BiPAP/CPAP I & O Intake and Output 08/27/18 07:01 Intake Total 3862.57 ml Output Total 6575 ml Balance -2712.43 ml IV Total 3862.57 ml Output Urine Total 6575 ml PHYSICAL EXAM Physical Exam Sedated on bipap Neck supple Decreased breath sounds bilaterally RRR Abd soft, ND, no pain response to palpation Chronic venous stasis changes in the lower extremities bilaterally with small ulcerations, left leg. ASSESSMENT/PLAN Assessment/Plan Fever of unknown origin, cannot rule out atypical infections d/t immunosuppression Acute encephalopathy. Acute hypoxic respiratory failure, now on BiPAP. Crohn's with history of ileocolonic resection and chronic Remicade. Anastomotic ulcer found on recent colonoscopy. Anemia, status post blood transfusion on 08/18/2018. History of deep venous thrombosis and pulmonary embolism, on chronic warfarin that has now been discontinued due to anemia. ID, pulm, GI following Abx per ID, eval for atypical infections All bld cx NTD Prognosis guarded. Pt is critically ill. COMMENT Lab Laboratory Tests Test 08/26/18 09:00 O2 Saturation 93 % (92-99) Arterial Blood pH 7.45 (7.35-7.45) Arterial Blood pCO2 at Patient Temp 50 mmHg (35-46) Arterial Blood pO2 at Patient Temp 67 mmHg (65-108) Arterial Blood HCO3 34 mmol/L (21-28) Arterial Blood Base Excess 9 mmol/L (-3-3) FiO2 30 COLLIN ESQUEDA MD Aug 27, 2018 08:06
[2018-08-27] MEDS: BUDESONIDE 0.5 MG/2 ML NEBU. NEB SCH ×2 (08:07→20:06)
[2018-08-27 08:19] LABS: BASE EXCESS ABG 10 mmol/L (-3-3); HCO3 ABG 36 mmol/L (21-28); PCO2 ABG 57 mmHg (35-46); PO2 ABG 101 mmHg (65-108); SAT O2 ABG 97 % (92-99)
[2018-08-27] MEDS: DOXYCYCLINE HYCLATE 100 MG in IV DEXTROSE 5% 100ML 100 ML IV SCH ×2 (08:38→20:42)
[2018-08-27] MEDS: HALOPERIDOL LACTATE 5 MG/ML VIAL. IVP PRN ×3 (08:38→20:41)
[2018-08-27 08:56] LABS: FIO2 ABG 30
[2018-08-27] MEDS: ACETAMINOPHEN/CODEINE 300/30MG TABLET. PO PRN ×2 (09:06→16:49)
--- NOTE | 2018-08-27 09:12 | PDOC ---
PULMONARY PROGRESS NOTES Subjective TRANSFERRED TO ICU 08/22 NOW IN CHAIR ALERT AND ORIENTED KNEW ME NO CHEST APIN Vitals Vital Signs Date Time Temp Pulse Resp B/P (MAP) Pulse Ox O2 Delivery O2 Flow Rate FiO2 08/27/18 09:06 24 97 Venturi Mask 6.0 08/27/18 08:37 43 190/96 08/27/18 04:00 99.0 99.0 ROS: No Chest Pain General: Alert Lungs: Wheezing, Crackles Cardiovascular: S1, S2 Abdomen: Soft Neuro Exam: Alert Extremities: No Edema Skin: Warm Labs Laboratory Tests Test 08/26/18 06:00 08/26/18 09:00 08/27/18 08:00 White Blood Count 6.3 x10^3/uL (4.0-11.0) Red Blood Count 4.44 x10^6/uL (4.30-5.70) Hemoglobin 8.9 g/dL (13.0-17.5) Hematocrit 30.4 % (39.0-53.0) Mean Corpuscular Volume 69 fL (79-100) Mean Corpuscular Hemoglobin 20 pg (25-35) Mean Corpuscular Hemoglobin Concent 29 g/dL (31-37) Red Cell Distribution Width 25.5 % (11.5-14.5) Platelet Count 213 x10^3/uL (140-400) Neutrophils (%) (Auto) 77 % (31-73) Lymphocytes (%) (Auto) 15 % (24-48) Monocytes (%) (Auto) 8 % (0-9) Eosinophils (%) (Auto) 0 % (0-3) Basophils (%) (Auto) 0 % (0-3) Neutrophils # (Auto) 4.8 x10^3uL (1.8-7.7) Lymphocytes # (Auto) 0.9 x10^3/uL (1.0-4.8) Monocytes # (Auto) 0.5 x10^3/uL (0.0-1.1) Eosinophils # (Auto) 0.0 x10^3/uL (0.0-0.7) Basophils # (Auto) 0.0 x10^3/uL (0.0-0.2) Sodium Level 144 mmol/L (136-145) Potassium Level 4.9 mmol/L (3.5-5.1) Chloride Level 102 mmol/L (98-107) Carbon Dioxide Level 35 mmol/L (21-32) Anion Gap 7 (6-14) Blood Urea Nitrogen 23 mg/dL (8-26) Creatinine 1.2 mg/dL (0.7-1.3) Estimated GFR (Cockcroft-Gault) 61.8 BUN/Creatinine Ratio 19 (6-20) Glucose Level 222 mg/dL (70-99) Calcium Level 9.0 mg/dL (8.5-10.1) Magnesium Level 2.0 mg/dL (1.8-2.4) Total Bilirubin 0.5 mg/dL (0.2-1.0) Aspartate Amino Transf (AST/SGOT) 25 U/L (15-37) Alanine Aminotransferase (ALT/SGPT) 27 U/L (16-63) Alkaline Phosphatase 43 U/L (46-116) Total Protein 7.3 g/dL (6.4-8.2) Albumin 2.8 g/dL (3.4-5.0) Albumin/Globulin Ratio 0.6 (1.0-1.7) Procalcitonin 0.14 ng/mL (0.00-0.10) O2 Saturation 93 % (92-99) 97 % (92-99) Arterial Blood pH 7.45 (7.35-7.45) 7.42 (7.35-7.45) Arterial Blood pCO2 at Patient Temp 50 mmHg (35-46) 57 mmHg (35-46) Arterial Blood pO2 at Patient Temp 67 mmHg (65-108) 101 mmHg (65-108) Arterial Blood HCO3 34 mmol/L (21-28) 36 mmol/L (21-28) Arterial Blood Base Excess 9 mmol/L (-3-3) 10 mmol/L (-3-3) FiO2 30 30 Laboratory Tests Test 08/27/18 08:00 O2 Saturation 97 % (92-99) Arterial Blood pH 7.42 (7.35-7.45) Arterial Blood pCO2 at Patient Temp 57 mmHg (35-46) Arterial Blood pO2 at Patient Temp 101 mmHg (65-108) Arterial Blood HCO3 36 mmol/L (21-28) Arterial Blood Base Excess 10 mmol/L (-3-3) FiO2 30 Medications Active Scripts Medications Dose Route/Sig Max Daily Dose Days Date Category Warfarin Sodium 1 Mg Tablet 12.5 Mg PO QTUTHSA 08/18/18 Reported Warfarin Sodium 5 Mg Tablet 10 Mg PO QMWF 08/18/18 Reported Proair Hfa Inhaler (Albuterol Sulfate) 8.5 Gm Hfa.aer.ad 1 Puff INH PRN Q6HRS PRN 06/19/18 Reported Symbicort 80-4.5 Mcg Inhaler (Budesonide/Formoterol Fumarate) 10.2 Gm Hfa.aer.ad 2 Puff IH BID 06/19/18 Reported Spiriva (Tiotropium [place]) 18 Mcg Cap.w.dev 1 Cap IH DAILY 06/19/18 Reported Losartan Potassium 100 Mg Tablet 100 Mg PO DAILYWSUP 06/19/18 Reported Impression . IMPRESSION: 1. Abnormal V/Q scan read out as intermediate probability with an abnormal chest x-ray at the time of the V/Q scan. The x-ray revealed pulmonary edema. 2. History of deep venous thrombosis and pulmonary embolism. 3. Acute exacerbation of chronic obstructive pulmonary disease. 4. Acute on chronic hypercapnic respiratory failure. 5. Chronic anemia with current acute drop in hemoglobin. 6. Crohn's disease. 7. Nephrolithiasis. 8. Questionable cholelithiasis. 9. Chronic immunosuppression. The patient is on Remicade. 10. FEVER 11. AECOPD 12. METABOLIC/TOXIC ENCE VENOUS DOPPLERS Impression: No evidence of DVT in the visualized bilateral lower extremity venous system. 08/23 CXR NO INFILTRATES REVIEWED CT CHEST 08/26 MILD INFILTRATES IM AM NOT IMPRESSED Plan . OFF SEDATION SINCE YESTERDAY, OFF 02 DURING DAY, BIAPAP AT [facility] ABG 7.42/57/101 D/W DR DE OK TO TRANSFER HIM TO LTAC, WILL D/W DR ESQUEDA, I THINK MENTAL STATUS WILL IMPROVE WITH TIME AND AVOID FURTHER SEDATION SLEEP DEPRAVATION IS A FACTOR ALONG WITH ICU SURROUNDINGS D/W TRENT DE AND KYLER REVIEWED [facility] CT OF CHEST I DON'T THINK ANY MAJOR INFECTION IN LUNGS NOT PLANNING ON BRONCHOSCOPY ANTIBX PER CONTRERAS MCFADDEN MD Aug 27, 2018 09:12
[2018-08-27] MEDS ORDERED: ONDANSETRON PF 4 MG/2 ML VIAL. IV ONE (09:30)
[2018-08-27 10:50] LABS: BASO % 0 % (0-3); EOS % 0 % (0-3); HEMATOCRIT 27.4 % (39.0-53.0); HEMOGLOBIN 8.3 g/dL (13.0-17.5); LYMPH # 0.6 x10^3/uL (1.0-4.8); LYMPH % 11 % (24-48); MEAN CORPUSCULAR HEMOGLOBIN 21 pg (25-35); MEAN CORPUSCULAR HGB CONC 30 g/dL (31-37); MEAN CORPUSCULAR VOLUME 68 fL (79-100); MONO # 0.6 x10^3/uL (0.0-1.1); MONO % 10 % (0-9); NEUT # 4.6 x10^3uL (1.8-7.7); NEUT % 79 % (31-73); PLATELET COUNT 201 x10^3/uL (140-400); RED BLOOD COUNT 4.04 x10^6/uL (4.30-5.70); RED CELL DISTRIBUTION WIDTH 25.5 % (11.5-14.5); WHITE BLOOD COUNT 5.8 x10^3/uL (4.0-11.0)
[2018-08-27 11:09] LABS: ALBUMIN 2.7 g/dL (3.4-5.0); ALBUMIN/GLOBULIN RATIO 0.7 (1.0-1.7); CALCIUM 8.7 mg/dL (8.5-10.1); CREATININE 1.1 mg/dL (0.7-1.3); GFR 68.3; POTASSIUM 4.4 mmol/L (3.5-5.1); TOTAL BILIRUBIN 0.6 mg/dL (0.2-1.0); TOTAL PROTEIN 6.8 g/dL (6.4-8.2)
[2018-08-27] MEDS: AMINO AC 3%/ELECTROLYTE/GLYCER 1,000 ML IV SCH (12:00)
--- NOTE | 2018-08-27 13:59 | PDOC ---
Objective: Objective: RNs present - passing brown stool, ate 25% of lunch, breathing better, has been off BiPAP. Vital Signs: Vital Signs Date Time Temp Pulse Resp B/P (MAP) Pulse Ox O2 Delivery O2 Flow Rate FiO2 08/27/18 12:00 Venturi Mask 6.0 08/27/18 09:06 24 97 08/27/18 08:37 43 190/96 08/27/18 04:00 99.0 99.0 Labs: Laboratory Tests Test 08/27/18 08:00 08/27/18 10:35 O2 Saturation 97 % Arterial Blood pH 7.42 Arterial Blood pCO2 at Patient Temp 57 mmHg Arterial Blood pO2 at Patient Temp 101 mmHg Arterial Blood HCO3 36 mmol/L Arterial Blood Base Excess 10 mmol/L FiO2 30 White Blood Count 5.8 x10^3/uL Red Blood Count 4.04 x10^6/uL Hemoglobin 8.3 g/dL Hematocrit 27.4 % Mean Corpuscular Volume 68 fL Mean Corpuscular Hemoglobin 21 pg Mean Corpuscular Hemoglobin Concent 30 g/dL Red Cell Distribution Width 25.5 % Platelet Count 201 x10^3/uL Neutrophils (%) (Auto) 79 % Lymphocytes (%) (Auto) 11 % Monocytes (%) (Auto) 10 % Eosinophils (%) (Auto) 0 % Basophils (%) (Auto) 0 % Neutrophils # (Auto) 4.6 x10^3uL Lymphocytes # (Auto) 0.6 x10^3/uL Monocytes # (Auto) 0.6 x10^3/uL Eosinophils # (Auto) 0.0 x10^3/uL Basophils # (Auto) 0.0 x10^3/uL Sodium Level 142 mmol/L Potassium Level 4.4 mmol/L Chloride Level 102 mmol/L Carbon Dioxide Level 35 mmol/L Anion Gap 5 Blood Urea Nitrogen 22 mg/dL Creatinine 1.1 mg/dL Estimated GFR (Cockcroft-Gault) 68.3 BUN/Creatinine Ratio 20 Glucose Level 200 mg/dL Calcium Level 8.7 mg/dL Total Bilirubin 0.6 mg/dL Aspartate Amino Transf (AST/SGOT) 20 U/L Alanine Aminotransferase (ALT/SGPT) 26 U/L Alkaline Phosphatase 42 U/L Total Protein 6.8 g/dL Albumin 2.7 g/dL Albumin/Globulin Ratio 0.7 PE: GEN: ill - nurses supporting him to stand from chair LUNGS: Venturi mask HEART: tachycardic ABD: S/ND/NT NEURO/PSYCH: mumbling A/P: Resp failure, abnormal chest imaging Crohn's on Remicade, recent colonoscopy w/ anastomotic ulcer H/o DVT/PE - Coumadin recently stopped Anemia - stable -- Continue atbx/anti-fungal per ID, supportive care. HEATHER KATE Aug 27, 2018 13:59
[2018-08-27 14:58] LABS: BASE EXCESS ABG 6 mmol/L (-3-3); HCO3 ABG 32 mmol/L (21-28); PO2 ABG 63 mmHg (65-108); SAT O2 ABG 90 % (92-99)
[2018-08-27 15:04] LABS: FIO2 ABG 28; PCO2 ABG 57 mmHg (35-46)
[2018-08-27] MEDS ORDERED: traZODone 100 MG TABLET. PO ONE (20:00)
[2018-08-28] VITALS (13 sets, daily range): BP systolic 134–192; BP diastolic 67–97
[2018-08-28] MEDS: HALOPERIDOL LACTATE 5 MG/ML VIAL. IVP PRN ×2 (00:05→05:17)
[2018-08-28] MEDS: PIPERACILLIN/TAZOBACTAM 3.375 GM in IV NORMAL SALINE 50ML 50 ML IV SCH ×3 (00:06→13:22)
[2018-08-28] MEDS: ENALAPRILAT 2.5 MG/2 ML VIAL. IVP SCH ×3 (00:11→13:23)
[2018-08-28] MEDS: AMINO AC 3%/ELECTROLYTE/GLYCER 1,000 ML IV SCH ×2 (03:27→11:00)
--- NOTE | 2018-08-28 08:17 | PDOC ---
Infectious Disease Note Subjective Subjective awake, off bipap, says is ok, ROS ROS no n/v/d/fever sob + Vital Sign Vital Signs Vital Signs Date Time Temp Pulse Resp B/P (MAP) Pulse Ox O2 Delivery O2 Flow Rate FiO2 08/28/18 06:00 113 42 183/97 (125) 98 Nasal Cannula 2.0 08/28/18 04:00 98.6 98.6 Physical Exam PHYSICAL EXAM GENERAL: The patient is off bipap, though sob HEENT: Pupils equally round. Normal conjunctivae. Oral exam deferred as he is on BiPAP and unable to view. NECK: Supple. LUNGS: Diminished aeration throughout. HEART: S1 and S2. ABDOMEN: Obese and soft. No grimace or guarding to palpation. Bowel sounds present. EXTREMITIES: Chronic venous stasis changes in the lower extremities bilaterally with small ulcerations, left leg. No cyanosis. SKIN: Warm without generalized rash. NEUROLOGIC: awake, no focal deficit Labs Lab Laboratory Tests Test 08/27/18 10:35 08/27/18 14:00 White Blood Count 5.8 x10^3/uL (4.0-11.0) Red Blood Count 4.04 x10^6/uL (4.30-5.70) Hemoglobin 8.3 g/dL (13.0-17.5) Hematocrit 27.4 % (39.0-53.0) Mean Corpuscular Volume 68 fL (79-100) Mean Corpuscular Hemoglobin 21 pg (25-35) Mean Corpuscular Hemoglobin Concent 30 g/dL (31-37) Red Cell Distribution Width 25.5 % (11.5-14.5) Platelet Count 201 x10^3/uL (140-400) Neutrophils (%) (Auto) 79 % (31-73) Lymphocytes (%) (Auto) 11 % (24-48) Monocytes (%) (Auto) 10 % (0-9) Eosinophils (%) (Auto) 0 % (0-3) Basophils (%) (Auto) 0 % (0-3) Neutrophils # (Auto) 4.6 x10^3uL (1.8-7.7) Lymphocytes # (Auto) 0.6 x10^3/uL (1.0-4.8) Monocytes # (Auto) 0.6 x10^3/uL (0.0-1.1) Eosinophils # (Auto) 0.0 x10^3/uL (0.0-0.7) Basophils # (Auto) 0.0 x10^3/uL (0.0-0.2) Sodium Level 142 mmol/L (136-145) Potassium Level 4.4 mmol/L (3.5-5.1) Chloride Level 102 mmol/L (98-107) Carbon Dioxide Level 35 mmol/L (21-32) Anion Gap 5 (6-14) Blood Urea Nitrogen 22 mg/dL (8-26) Creatinine 1.1 mg/dL (0.7-1.3) Estimated GFR (Cockcroft-Gault) 68.3 BUN/Creatinine Ratio 20 (6-20) Glucose Level 200 mg/dL (70-99) Calcium Level 8.7 mg/dL (8.5-10.1) Total Bilirubin 0.6 mg/dL (0.2-1.0) Aspartate Amino Transf (AST/SGOT) 20 U/L (15-37) Alanine Aminotransferase (ALT/SGPT) 26 U/L (16-63) Alkaline Phosphatase 42 U/L (46-116) Total Protein 6.8 g/dL (6.4-8.2) Albumin 2.7 g/dL (3.4-5.0) Albumin/Globulin Ratio 0.7 (1.0-1.7) O2 Saturation 90 % (92-99) Arterial Blood pH 7.38 (7.35-7.45) Arterial Blood pCO2 at Patient Temp 57 mmHg (35-46) Arterial Blood pO2 at Patient Temp 63 mmHg (65-108) Arterial Blood HCO3 32 mmol/L (21-28) Arterial Blood Base Excess 6 mmol/L (-3-3) FiO2 28 Micro sputum neg bc neg Objective Assessment 1. Fever. 2. Acute encephalopathy. 3. Acute respiratory failure, now on BiPAP. 4. Crohn's with history of ileocolonic resection and chronic Remicade. Anastomotic ulcer found on recent colonoscopy. 5. Anemia, status post blood transfusion on 08/18/2018. 6. History of deep venous thrombosis and pulmonary embolism, on chronic warfarin that has now been discontinued due to anemia. 7 Possible atypical pulmonary infection Plan Plan of Care pancultures cont Zosyn and diflucan, doxy Monitor labs/temp. f/u culture results supporitve care D/w nursing ct chest noted, bright nodular opacity urine histo antigen crypto serum antigen Critical ill CATRINA DE MD Aug 28, 2018 08:17
[2018-08-28] MEDS: IPRATRPIUM/ALBUTEROL 0.5/2.5MG 3 ML NEBU. NEB SCH ×2 (08:34→11:57)
[2018-08-28] MEDS: ALBUTEROL SULFATE 2.5 MG/3 ML NEBU. NEB PRN (08:36)
[2018-08-28] MEDS: BUDESONIDE 0.5 MG/2 ML NEBU. NEB SCH (08:36)
[2018-08-28] MEDS: FLUCONAZOLE 400MG/200ML PREMIX 200 ML IV SCH (08:45)
[2018-08-28] MEDS: PANTOPRAZOLE IV PUSH 40 MG VIAL. IVP SCH (08:46)
[2018-08-28] MEDS: DOXYCYCLINE HYCLATE 100 MG in IV DEXTROSE 5% 100ML 100 ML IV SCH (08:46)
[2018-08-28] MEDS: methylPREDNISolone SOD SUCC PF 40 MG/ML VIAL. IV SCH (08:46)
[2018-08-28] MEDS: NYSTATIN TOPICAL POWDER 15GM BOTTLE. TP SCH (08:47)
--- NOTE | 2018-08-28 09:31 | DISCH ---
DISCHARGE DISCHARGE INFORMATION: FINAL DIAGNOSIS Problems Medical Problems: (1) COPD (chronic obstructive pulmonary disease) Status: Acute (2) Hypoxia Status: Acute (3) Pulmonary embolism Status: Acute CONDITION ON DISCHARGE: Guarded CODE STATUS: Code Status: Full LTAC: ADMIT TO LTAC: Yes POST DISCHARGE ORDERS: ACTIVITY ORDERS: Activity as tolerated WEIGHT BEARING STATUS: As tolerated DIET AFTER DISCHARGE: ADA TREATMENT/EQUIPMENT ORDERS: RESPIRATORY EQUIPMENT NEEDED: Oxygen, BiPAP Physical Therapy For: Evalulation/Treatment Occupational Therapy For: Evaluation/Treatment DISCHARGE MEDICATIONS: Home Meds Reported Medications Warfarin Sodium (WARFARIN SODIUM) 1 Mg Tablet, 12.5 MG PO QTUTHSA for blood thinner, TAB 08/18/18 Warfarin Sodium (WARFARIN SODIUM) 5 Mg Tablet, 10 MG PO QMWF for blood thinner 08/18/18 Albuterol Sulfate (PROAIR HFA INHALER) 8.5 Gm Hfa.aer.ad, 1 PUFF INH PRN Q6HRS PRN for SHORTNESS OF BREATH, INHALER 0 Refills 06/19/18 Budesonide/Formoterol Fumarate (SYMBICORT 80-4.5 MCG INHALER) 10.2 Gm Hfa.aer.ad , 2 PUFF IH BID, #10.2 GM 5 Refills 06/19/18 Tiotropium [place] (SPIRIVA) 18 Mcg Cap.w.dev, 1 CAP IH DAILY, #30 CAP 3 Refills 06/19/18 Losartan Potassium (LOSARTAN POTASSIUM) 100 Mg Tablet, 100 MG PO DAILYWSUP, TAB 06/19/18 COLLIN ESQUEDA MD Aug 28, 2018 09:31
--- NOTE | 2018-08-28 09:40 | PDOC ---
SUBJECTIVE Subjective Off sedation, able to be off bipap except when sleeping. Oriented this am. OBJECTIVE Objective Reviewed. Vital Signs Vital Signs Date Time Temp Pulse Resp B/P (MAP) Pulse Ox O2 Delivery O2 Flow Rate FiO2 08/28/18 08:37 98 Nasal Cannula 3.0 08/28/18 08:23 98 Nasal Cannula 3.0 08/28/18 06:00 113 42 183/97 (125) 98 Nasal Cannula 2.0 08/28/18 05:16 111 190/92 08/28/18 05:00 111 26 190/92 (124) 98 BiPAP/CPAP 08/28/18 04:00 98.6 118 26 180/94 (122) 97 BiPAP/CPAP 98.6 08/28/18 04:00 Bi-pap 08/28/18 03:00 119 26 192/94 (126) 98 BiPAP/CPAP 08/28/18 02:00 120 26 160/79 (106) 91 BiPAP/CPAP 08/28/18 02:00 99 BiPAP/CPAP 08/28/18 01:00 117 26 134/67 (89) 99 BiPAP/CPAP 08/28/18 00:11 112 180/84 08/27/18 23:59 Bi-pap 08/27/18 23:59 98.8 111 26 180/64 (102) 92 Venturi Mask 6.0 98.8 08/27/18 23:02 138 26 181/79 (113) 92 Nasal Cannula 2.0 08/27/18 22:37 121 192/87 08/27/18 22:00 125 26 180/87 (118) 91 Nasal Cannula 2.0 08/27/18 21:00 127 26 186/90 (122) 95 Venturi Mask 6.0 08/27/18 20:11 97 Venturi Mask 15.0 08/27/18 20:09 97 Venturi Mask 15.0 08/27/18 20:00 98.6 136 26 199/92 (127) 92 Venturi Mask 6.0 98.6 08/27/18 20:00 Bi-pap 08/27/18 19:00 136 26 186/69 (108) 92 Venturi Mask 6.0 08/27/18 18:00 123 26 165/71 (102) Venturi Mask 6.0 08/27/18 17:51 25 91 Venturi Mask 6.0 08/27/18 17:46 126 181/81 08/27/18 17:00 122 24 140/79 (99) 99 BiPAP/CPAP 08/27/18 16:49 24 94 Venturi Mask 6.0 08/27/18 16:05 94 BiPAP/CPAP 08/27/18 16:00 98.4 126 24 167/85 (112) 95 BiPAP/CPAP 98.4 08/27/18 16:00 Bi-pap 08/27/18 15:50 122 170/90 08/27/18 15:00 134 26 158/92 (114) 88 Venturi Mask 6.0 08/27/18 14:00 120 26 162/94 (116) 96 Venturi Mask 6.0 08/27/18 13:57 124 157/83 08/27/18 13:00 124 26 157/83 (107) 92 Venturi Mask 6.0 08/27/18 12:00 98.4 96 24 148/73 (98) 94 Venturi Mask 6.0 98.4 08/27/18 12:00 Venturi Mask 6.0 08/27/18 11:00 96 26 149/74 (99) 90 Venturi Mask 6.0 08/27/18 10:00 86 24 165/77 (106) 95 Venturi Mask 6.0 I & O Intake and Output 08/28/18 07:01 Intake Total 1372.55 ml Output Total 2935 ml Balance -1562.45 ml IV Total 1372.55 ml Output Urine Total 2935 ml # Bowel Movements 1 PHYSICAL EXAM Physical Exam Alert, oriented to self, location Neck supple Decreased breath sounds bilaterally, tachypnea, mild to moderate labored respirations Tachycardic, regular rhythm Abd soft, ND, NT, normal BS Chronic venous stasis changes in the lower extremities bilaterally with small ulcerations, left leg. ASSESSMENT/PLAN Assessment/Plan Fever of unknown origin, cannot rule out atypical infections d/t immunosuppression Acute encephalopathy resolved Acute hypoxic respiratory failure, now on BiPAP QHS Likely COPD d/t ~90 pack yr smoking hx Crohn's with history of ileocolonic resection and chronic Remicade. Anastomotic ulcer found on recent colonoscopy. Anemia, status post blood transfusion on 08/18/2018. History of deep venous thrombosis and pulmonary embolism, on chronic warfarin that has now been discontinued due to anemia. ID, pulm, GI following Abx per ID, eval for atypical infections still pending All bld cx NTD OK to transfer to [facility] if ok with ID/pulm COMMENT Lab Laboratory Tests Test 08/27/18 10:35 08/27/18 14:00 White Blood Count 5.8 x10^3/uL (4.0-11.0) Red Blood Count 4.04 x10^6/uL (4.30-5.70) Hemoglobin 8.3 g/dL (13.0-17.5) Hematocrit 27.4 % (39.0-53.0) Mean Corpuscular Volume 68 fL (79-100) Mean Corpuscular Hemoglobin 21 pg (25-35) Mean Corpuscular Hemoglobin Concent 30 g/dL (31-37) Red Cell Distribution Width 25.5 % (11.5-14.5) Platelet Count 201 x10^3/uL (140-400) Neutrophils (%) (Auto) 79 % (31-73) Lymphocytes (%) (Auto) 11 % (24-48) Monocytes (%) (Auto) 10 % (0-9) Eosinophils (%) (Auto) 0 % (0-3) Basophils (%) (Auto) 0 % (0-3) Neutrophils # (Auto) 4.6 x10^3uL (1.8-7.7) Lymphocytes # (Auto) 0.6 x10^3/uL (1.0-4.8) Monocytes # (Auto) 0.6 x10^3/uL (0.0-1.1) Eosinophils # (Auto) 0.0 x10^3/uL (0.0-0.7) Basophils # (Auto) 0.0 x10^3/uL (0.0-0.2) Sodium Level 142 mmol/L (136-145) Potassium Level 4.4 mmol/L (3.5-5.1) Chloride Level 102 mmol/L (98-107) Carbon Dioxide Level 35 mmol/L (21-32) Anion Gap 5 (6-14) Blood Urea Nitrogen 22 mg/dL (8-26) Creatinine 1.1 mg/dL (0.7-1.3) Estimated GFR (Cockcroft-Gault) 68.3 BUN/Creatinine Ratio 20 (6-20) Glucose Level 200 mg/dL (70-99) Calcium Level 8.7 mg/dL (8.5-10.1) Total Bilirubin 0.6 mg/dL (0.2-1.0) Aspartate Amino Transf (AST/SGOT) 20 U/L (15-37) Alanine Aminotransferase (ALT/SGPT) 26 U/L (16-63) Alkaline Phosphatase 42 U/L (46-116) Total Protein 6.8 g/dL (6.4-8.2) Albumin 2.7 g/dL (3.4-5.0) Albumin/Globulin Ratio 0.7 (1.0-1.7) O2 Saturation 90 % (92-99) Arterial Blood pH 7.38 (7.35-7.45) Arterial Blood pCO2 at Patient Temp 57 mmHg (35-46) Arterial Blood pO2 at Patient Temp 63 mmHg (65-108) Arterial Blood HCO3 32 mmol/L (21-28) Arterial Blood Base Excess 6 mmol/L (-3-3) FiO2 28 COLLIN ESQUEDA MD Aug 28, 2018 09:40
--- NOTE | 2018-08-28 10:27 | PDOC ---
PULMONARY PROGRESS NOTES Subjective TRANSFERRED TO ICU 08/22 NOW IN CHAIR ALERT AND ORIENTED KNEW ME NO CHEST APIN Vitals Vital Signs Date Time Temp Pulse Resp B/P (MAP) Pulse Ox O2 Delivery O2 Flow Rate FiO2 08/28/18 08:37 98 Nasal Cannula 3.0 08/28/18 06:00 113 42 183/97 (125) 08/28/18 04:00 98.6 98.6 ROS: No Chest Pain General: Alert Lungs: Wheezing, Crackles Cardiovascular: S1, S2 Abdomen: Soft Neuro Exam: Alert Extremities: No Edema Skin: Warm Labs Laboratory Tests Test 08/27/18 08:00 08/27/18 10:35 08/27/18 14:00 O2 Saturation 97 % (92-99) 90 % (92-99) Arterial Blood pH 7.42 (7.35-7.45) 7.38 (7.35-7.45) Arterial Blood pCO2 at Patient Temp 57 mmHg (35-46) 57 mmHg (35-46) Arterial Blood pO2 at Patient Temp 101 mmHg (65-108) 63 mmHg (65-108) Arterial Blood HCO3 36 mmol/L (21-28) 32 mmol/L (21-28) Arterial Blood Base Excess 10 mmol/L (-3-3) 6 mmol/L (-3-3) FiO2 30 28 White Blood Count 5.8 x10^3/uL (4.0-11.0) Red Blood Count 4.04 x10^6/uL (4.30-5.70) Hemoglobin 8.3 g/dL (13.0-17.5) Hematocrit 27.4 % (39.0-53.0) Mean Corpuscular Volume 68 fL (79-100) Mean Corpuscular Hemoglobin 21 pg (25-35) Mean Corpuscular Hemoglobin Concent 30 g/dL (31-37) Red Cell Distribution Width 25.5 % (11.5-14.5) Platelet Count 201 x10^3/uL (140-400) Neutrophils (%) (Auto) 79 % (31-73) Lymphocytes (%) (Auto) 11 % (24-48) Monocytes (%) (Auto) 10 % (0-9) Eosinophils (%) (Auto) 0 % (0-3) Basophils (%) (Auto) 0 % (0-3) Neutrophils # (Auto) 4.6 x10^3uL (1.8-7.7) Lymphocytes # (Auto) 0.6 x10^3/uL (1.0-4.8) Monocytes # (Auto) 0.6 x10^3/uL (0.0-1.1) Eosinophils # (Auto) 0.0 x10^3/uL (0.0-0.7) Basophils # (Auto) 0.0 x10^3/uL (0.0-0.2) Sodium Level 142 mmol/L (136-145) Potassium Level 4.4 mmol/L (3.5-5.1) Chloride Level 102 mmol/L (98-107) Carbon Dioxide Level 35 mmol/L (21-32) Anion Gap 5 (6-14) Blood Urea Nitrogen 22 mg/dL (8-26) Creatinine 1.1 mg/dL (0.7-1.3) Estimated GFR (Cockcroft-Gault) 68.3 BUN/Creatinine Ratio 20 (6-20) Glucose Level 200 mg/dL (70-99) Calcium Level 8.7 mg/dL (8.5-10.1) Total Bilirubin 0.6 mg/dL (0.2-1.0) Aspartate Amino Transf (AST/SGOT) 20 U/L (15-37) Alanine Aminotransferase (ALT/SGPT) 26 U/L (16-63) Alkaline Phosphatase 42 U/L (46-116) Total Protein 6.8 g/dL (6.4-8.2) Albumin 2.7 g/dL (3.4-5.0) Albumin/Globulin Ratio 0.7 (1.0-1.7) Laboratory Tests Test 08/27/18 10:35 08/27/18 14:00 White Blood Count 5.8 x10^3/uL (4.0-11.0) Red Blood Count 4.04 x10^6/uL (4.30-5.70) Hemoglobin 8.3 g/dL (13.0-17.5) Hematocrit 27.4 % (39.0-53.0) Mean Corpuscular Volume 68 fL (79-100) Mean Corpuscular Hemoglobin 21 pg (25-35) Mean Corpuscular Hemoglobin Concent 30 g/dL (31-37) Red Cell Distribution Width 25.5 % (11.5-14.5) Platelet Count 201 x10^3/uL (140-400) Neutrophils (%) (Auto) 79 % (31-73) Lymphocytes (%) (Auto) 11 % (24-48) Monocytes (%) (Auto) 10 % (0-9) Eosinophils (%) (Auto) 0 % (0-3) Basophils (%) (Auto) 0 % (0-3) Neutrophils # (Auto) 4.6 x10^3uL (1.8-7.7) Lymphocytes # (Auto) 0.6 x10^3/uL (1.0-4.8) Monocytes # (Auto) 0.6 x10^3/uL (0.0-1.1) Eosinophils # (Auto) 0.0 x10^3/uL (0.0-0.7) Basophils # (Auto) 0.0 x10^3/uL (0.0-0.2) Sodium Level 142 mmol/L (136-145) Potassium Level 4.4 mmol/L (3.5-5.1) Chloride Level 102 mmol/L (98-107) Carbon Dioxide Level 35 mmol/L (21-32) Anion Gap 5 (6-14) Blood Urea Nitrogen 22 mg/dL (8-26) Creatinine 1.1 mg/dL (0.7-1.3) Estimated GFR (Cockcroft-Gault) 68.3 BUN/Creatinine Ratio 20 (6-20) Glucose Level 200 mg/dL (70-99) Calcium Level 8.7 mg/dL (8.5-10.1) Total Bilirubin 0.6 mg/dL (0.2-1.0) Aspartate Amino Transf (AST/SGOT) 20 U/L (15-37) Alanine Aminotransferase (ALT/SGPT) 26 U/L (16-63) Alkaline Phosphatase 42 U/L (46-116) Total Protein 6.8 g/dL (6.4-8.2) Albumin 2.7 g/dL (3.4-5.0) Albumin/Globulin Ratio 0.7 (1.0-1.7) O2 Saturation 90 % (92-99) Arterial Blood pH 7.38 (7.35-7.45) Arterial Blood pCO2 at Patient Temp 57 mmHg (35-46) Arterial Blood pO2 at Patient Temp 63 mmHg (65-108) Arterial Blood HCO3 32 mmol/L (21-28) Arterial Blood Base Excess 6 mmol/L (-3-3) FiO2 28 Medications Active Scripts Medications Dose Route/Sig Max Daily Dose Days Date Category Warfarin Sodium 1 Mg Tablet 12.5 Mg PO QTUTHSA 08/18/18 Reported Warfarin Sodium 5 Mg Tablet 10 Mg PO QMWF 08/18/18 Reported Proair Hfa Inhaler (Albuterol Sulfate) 8.5 Gm Hfa.aer.ad 1 Puff INH PRN Q6HRS PRN 06/19/18 Reported Symbicort 80-4.5 Mcg Inhaler (Budesonide/Formoterol Fumarate) 10.2 Gm Hfa.aer.ad 2 Puff IH BID 06/19/18 Reported Spiriva (Tiotropium [place]) 18 Mcg Cap.w.dev 1 Cap IH DAILY 06/19/18 Reported Losartan Potassium 100 Mg Tablet 100 Mg PO DAILYWSUP 06/19/18 Reported Impression . IMPRESSION: 1. Abnormal V/Q scan read out as intermediate probability with an abnormal chest x-ray at the time of the V/Q scan. The x-ray revealed pulmonary edema. 2. History of deep venous thrombosis and pulmonary embolism. 3. Acute exacerbation of chronic obstructive pulmonary disease. 4. Acute on chronic hypercapnic respiratory failure. 5. Chronic anemia with current acute drop in hemoglobin. 6. Crohn's disease. 7. Nephrolithiasis. 8. Questionable cholelithiasis. 9. Chronic immunosuppression. The patient is on Remicade. 10. FEVER 11. AECOPD 12. METABOLIC/TOXIC ENCE VENOUS DOPPLERS Impression: No evidence of DVT in the visualized bilateral lower extremity venous system. 08/23 CXR NO INFILTRATES REVIEWED CT CHEST 08/26 MILD INFILTRATES IM AM NOT IMPRESSED Plan . 1. Spoke with Dr. Abdullahi yesterday, patient to transfer to [facility] today 2. patient more awake and alert today, currently off the BiPAP continue oxygen supplementation maintain saturations above 88% 3. Spoke with Dr Ansari who will be attending physician at [facility], spoke with family member Lenka and updated her 4. Avoid excess of sedation, use PRN Haldol. 5. 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 6. QHS and PRN BiPap. CONTRERAS MENESES MD Aug 28, 2018 10:27
[2018-08-28 10:50] LABS: HEMATOCRIT 27.4 % (39.0-53.0); HEMOGLOBIN 8.3 g/dL (13.0-17.5); RED BLOOD COUNT 3.91 x10^6/uL (4.30-5.70); RED CELL DISTRIBUTION WIDTH 25.5 % (11.5-14.5); WHITE BLOOD COUNT 9.9 x10^3/uL (4.0-11.0)
--- NOTE | 2018-08-28 10:56 | PDOC ---
Subjective: Subjective: I asked how he was doing. "Oh, I don't know." Objective: Objective: D/w staff - possible transfer to [facility] today. Vital Signs: Vital Signs Date Time Temp Pulse Resp B/P (MAP) Pulse Ox O2 Delivery O2 Flow Rate FiO2 08/28/18 08:37 98 Nasal Cannula 3.0 08/28/18 06:00 113 42 183/97 (125) 08/28/18 04:00 98.6 98.6 Labs: Laboratory Tests Test 08/27/18 14:00 O2 Saturation 90 % Arterial Blood pH 7.38 Arterial Blood pCO2 at Patient Temp 57 mmHg Arterial Blood pO2 at Patient Temp 63 mmHg Arterial Blood HCO3 32 mmol/L Arterial Blood Base Excess 6 mmol/L FiO2 28 PE: GEN: NAD LUNGS: NC, tachypneic HEART: tachycardic ABD: S/ND/NT NEURO/PSYCH: A & O 3 A/P: Resp failure, abnormal chest imaging - ID following Crohn's on Remicade Anemia - stable -- Stable from GI standpoint, continue treatment per ID, note possible transfer plans. HEATHER KATE Aug 28, 2018 10:56
[2018-08-28 11:07] LABS: CREATININE 1.2 mg/dL (0.7-1.3); GFR 61.8; POTASSIUM 4.6 mmol/L (3.5-5.1)
[2018-08-28] MEDS: hydrALAZINE 20 MG/ML VIAL. IVP PRN (16:01)
--- NOTE | 2018-08-28 16:52 | PDOC3 ---
Discharge Summary Date of Admission: Aug 17, 2018 Date of Discharge: Aug 28, 2018 Admitting Diagnosis comment: Dyspnea Abnormal VQ scan, concern for bilateral pulmonary emboli FINAL DIAGNOSIS Acute hypoxic respiratory failure Fever of unknown origin Acute encephalopathy, resolved COPD HTN Crohn's disease History of anemia d/t chronic GI bleeding History of recurrent DVTs/PEs Brief Hospital Course Mr. Garner is a 62 year old male with PMH of Crohn's disease who presented for admission out of concern for possible bilateral pulmonary emboli due to an equivocal VQ scan that was ordered at [facility]. He was unable to have a CT Angio performed due to allergy to contrast dye. He was having increasing dyspnea and fatigue. He was initially started on Lovenox and improved, but spiked a fever of 103 on 08/21. He starting having more lethargy, confusion and dyspnea and was found to be in acute respiratory acidosis with pH 7.15 and pCO2 114. He was transferred to the ICU on 08/22 and placed on BiPap. Pancultures were all negative and no definitive source of his fevers was found. He required sedation while on BiPap due to agitation. He continued to slowly improve and was weaned off sedation on 08/26 and was able to use BiPap only at night from 08/27 on. Infectious disease was consulted given fever of unknown origin and work up has thus far been unremarkable. Due to history of immunosuppression on Remicade, tests were sent to check for atypical infections. Legionella, Cryptococcus and Influenza were all negative. Histoplama ag is still pending at this time. He had a CT chest performed on 08/26 that showed multiple small tree-in-bud opacities, but Dr. Mora did not feel this finding required further work up or intervention at this time. He will be transferred to [facility] for further management and will continue Zosyn, Diflucan and Doxycycline per ID recommendations. He and his family are agreeable to this plan and his case as been discussed with the attending physician at [facility]. Due to his history of recurrent GI bleeds with anemia requiring transfusions and low suspicion that the original incident was due to pulmonary emboli, he was taken off of senior living warfarin, which he was on previously for history of recurrent DVTs and PEs. The long-term decision of whether to anticoagulate again in the future will be discussed when patient is able to follow up in clinic. CONDITION AT DISCHARGE: Stable Discharge Medications Current Medications Albuterol/ Ipratropium (Duoneb) 3 ml Q6HRS NEB Last administered on 08/20/18at 20:40; Start 08/17/18 at 18:00; Stop 08/20/18 at 21:50; Status DC Enoxaparin Sodium (Lovenox 100mg Syringe) 100 mg 1X ONCE SQ Last administered on 08/17/18at 18:15; Start 08/17/18 at 17:30; Stop 08/17/18 at 17:31; Status DC Ondansetron HCl (Zofran) 4 mg PRN Q8HRS PRN IV NAUSEA/VOMITING; Start at 17:30; Stop 08/18/18 at 17:29; Status DC Acetaminophen (Tylenol) 650 mg PRN Q4HRS PRN PO FEVER Last administered on at 06:24; Start 08/17/18 at 17:30; Stop 08/18/18 at 17:29; Status DC Enoxaparin Sodium (Lovenox 100mg Syringe) 100 mg Q12HR SQ Last administered on 08/19/18at 08:33; Start 08/18/18 at 09:00; Stop 08/19/18 at 16:36; Status DC Warfarin Sodium (Coumadin) 5 mg DAILY16 PO ; Start 08/18/18 at 16:00; Stop at 16:00; Status DC Warfarin Sodium (Coumadin Per Physician) 1 each PRN DAILY PRN MC SEE COMMENTS Last administered on 08/19/18at 15:11; Start 08/18/18 at 08:30; Stop 08/20/18 at 08:46; Status DC Warfarin Sodium (Coumadin) 10 mg DAILY16 PO Last administered on 08/18/18at 17: 10; Start 08/18/18 at 16:00; Stop 08/19/18 at 16:36; Status DC Budesonide (Pulmicort) 0.5 mg RTBID NEB Last administered on 08/28/18at 08:36; Start 08/18/18 at 08:45 Famotidine (Pepcid) 20 mg QHS PO Last administered on 08/22/18at 20:51; Start 08/18/18 at 21:00; Stop 08/24/18 at 08:04; Status DC Acetaminophen (Tylenol) 650 mg PRN Q6HRS PRN PO MODERATE PAIN Last administered on 08/20/18at 11:20; Start 08/20/18 at 08:45; Stop 08/21/18 at 00 :36; Status DC Acetaminophen/ Codeine Phosphate (Tylenol #3) 1 tab PRN Q6HRS PRN PO PAIN Last administered on 08/21/18at 05:18; Start 08/20/18 at 20:00; Stop 08/21/18 at 08 :27; Status DC Guaifenesin (Mucinex) 600 mg BID PO Last administered on 08/28/18at 08:46; Start 08/20/18 at 21:00 Albuterol Sulfate (Ventolin Neb Soln) 2.5 mg PRN Q2HR PRN NEB SHORTNESS OF BREATH Last administered on 08/28/18at 08:36; Start 08/20/18 at 22:00 Albuterol/ Ipratropium (Duoneb) 3 ml RTQID NEB Last administered on 08/22/18at 07:36; Start 08/21/18 at 08:00; Stop 08/22/18 at 16:03; Status DC Levofloxacin/ Dextrose 150 ml @ 100 mls/hr QHS IV Last administered on at 20:51; Start 08/21/18 at 00:00; Stop 08/23/18 at 13:27; Status DC Methylprednisolone Sodium Succinate (SOLU-Medrol 125MG VIAL) 60 mg 1X ONCE IV Last administered on 08/21/18at 00:05; Start 08/21/18 at 00:00; Stop 08/21/18 at 00:01; Status DC Vancomycin HCl 1.5 gm/Sodium Chloride 500 ml @ 250 mls/hr Q12H IV ; Start at 23:45; Status UNV Vancomycin HCl (Vanco Per Pharmacy) 1 each PRN DAILY PRN MC SEE COMMENTS Last administered on 08/22/18at 13:55; Start 08/20/18 at 23:45; Stop 08/23/18 at 09 :35; Status DC Vancomycin HCl 2 gm/Sodium Chloride 500 ml @ 250 mls/hr 1X ONCE IV Last administered on 08/21/18at 02:03; Start 08/21/18 at 00:00; Stop 08/21/18 at 01 :59; Status DC Acetaminophen (Tylenol) 650 mg PRN Q4HRS PRN PO FEVER Last administered on at 11:10; Start 08/21/18 at 00:45 Vancomycin HCl 1.5 gm/Sodium Chloride 500 ml @ 250 mls/hr Q8H IV Last administered on 08/23/18at 02:36; Start 08/21/18 at 10:00; Stop 08/23/18 at 09 :34; Status DC Vancomycin HCl (Vancomycin Trough Level) 1 each 1X ONCE MC Last administered on 08/22/18at 02:52; Start 08/22/18 at 01:30; Stop 08/22/18 at 01:31; Status DC Acetaminophen/ Codeine Phosphate (Tylenol #3) 2 tab PRN Q6HRS PRN PO PAIN Last administered on 08/27/18at 16:49; Start 08/21/18 at 08:30 Dexamethasone (Decadron) 8 mg DAILYWBKFT PO Last administered on 08/22/18at 08: 18; Start 08/21/18 at 12:00; Stop 08/22/18 at 12:11; Status DC Budesonide (Pulmicort) 0.5 mg 1X ONCE NEB Last administered on 08/21/18at 20: 52; Start 08/21/18 at 21:00; Stop 08/21/18 at 21:01; Status DC Throat Lozenges (Cepacol Sore Throat Lozenge) 1 kathy PRN Q2HRS PRN PO SORE THROAT Last administered on 08/22/18at 05:39; Start 08/21/18 at 23:45 Lorazepam (Ativan) 0.5 mg 1X ONCE PO ; Start 08/22/18 at 12:00; Stop at 12:08; Status DC Dexamethasone (Decadron) 4 mg DAILYWBKFT PO ; Start 08/23/18 at 08:00; Stop at 09:34; Status DC Albuterol/ Ipratropium (Duoneb) 3 ml [id number] NEB Last administered on at 11:57; Start 08/22/18 at 21:00 Furosemide (Lasix) 40 mg 1X ONCE IVP Last administered on 08/22/18at 16:17; Start 08/22/18 at 16:00; Stop 08/22/18 at 16:04; Status DC Lorazepam (Ativan) 1 mg PRN Q4HRS PRN IV ANXIETY / AGITATION Last administered on 08/27/18at 05:21; Start 08/22/18 at 19:30; Stop 08/27/18 at 12:29; Status DC Haloperidol Lactate (Haldol Inj) 5 mg Q8HRS IVP Last administered on at 05:26; Start 08/23/18 at 10:00; Stop 08/27/18 at 12:29; Status DC Haloperidol Lactate (Haldol Inj) 5 mg PRN Q4HRS PRN IVP AGITATION 2ND CHOICE Last administered on 08/27/18at 20:41; Start 08/23/18 at 09:00; Stop 08/27/18 at 21:04; Status DC Iron Sucrose 500 mg/Sodium Chloride 275 ml @ 78.571 mls/ hr 1X ONCE IV Last administered on 08/23/18at 09:45; Start 08/23/18 at 09:30; Stop 08/23/18 at 12 :59; Status DC Methylprednisolone Sodium Succinate (SOLU-Medrol 40MG VIAL) 40 mg Q12HR IV Last administered on 08/28/18at 08:46; Start 08/23/18 at 21:00 Acetaminophen (Tylenol Supp) 650 mg PRN Q6HRS PRN SC MILD PAIN / TEMP Last administered on 08/23/18at 12:27; Start 08/23/18 at 12:00 Pantoprazole Sodium (PROTONIX VIAL for IV PUSH) 40 mg BID IVP Last administered on 08/28/18at 08:46; Start 08/23/18 at 13:00 Linezolid/Dextrose 300 ml @ 300 mls/hr Q12HR IV Last administered on at 20:45; Start 08/23/18 at 14:00; Stop 08/27/18 at 07:38; Status DC Piperacillin Sod/ Tazobactam Sod 3.375 gm/Sodium Chloride 50 ml @ 100 mls/hr Q6HRS IV Last administered on 08/28/18at 13:22; Start 08/23/18 at 18:00 Doxycycline Hyclate 100 mg/ Dextrose 100 ml @ 50 mls/hr Q12HR IV ; Start 08/23 at 21:00; Status Cancel Dexmedetomidine HCl 200 mcg/ Sodium Chloride 50 ml @ 0 mls/hr CONT PRN IV PER PROTOCOL Last administered on 08/27/18at 05:21; Start 08/23/18 at 15:15; Stop 08/27/18 at 12:29; Status DC Sodium Chloride 500 ml @ 500 mls/hr 1X PRN PRN IV SEE COMMENTS; Start at 15:15 Atropine Sulfate (ATROPINE 0.5mg SYRINGE) 0.5 mg PRN Q5MIN PRN IV SEE COMMENTS ; Start 08/23/18 at 15:15 Lactobacillus Rhamnosus (Culturelle) 1 cap BID PO ; Start 08/24/18 at 09:00; Status Cancel Dextrose/Sodium Chloride 1,000 ml @ 100 mls/hr Q10H IV Last administered on at 05:21; Start 08/24/18 at 11:00; Stop 08/27/18 at 09:24; Status DC Enalaprilat (Vasotec Inj) 1.25 mg Q6HRS IVP Last administered on 08/26/18at 12: 59; Start 08/25/18 at 18:00; Stop 08/26/18 at 16:27; Status DC Enalaprilat (Vasotec Inj) 1.25 mg 1X ONCE IVP Last administered on 08/25/18at 14:20; Start 08/25/18 at 14:15; Stop 08/25/18 at 14:16; Status DC Hydralazine HCl (Apresoline Inj) 10 mg PRN Q4HRS PRN IVP ELEVATED BP, SEE COMMENTS Last administered on 08/27/18at 15:50; Start 08/26/18 at 05:15; Stop 08/27/18 at 16:34; Status DC Nystatin (Nystop) 1 james BID TP Last administered on 08/28/18at 08:47; Start at 09:00 Fluconazole/ Sodium Chloride 200 ml @ 100 mls/hr Q24H IV Last administered on 08/28/18at 08:45; Start 08/26/18 at 09:00 Hydralazine HCl (Apresoline Inj) 20 mg PRN Q4HRS PRN IVP ELEVATED BP, SEE COMMENTS; Start 08/26/18 at 16:30; Status Cancel Enalaprilat (Vasotec Inj) 2.5 mg Q6HRS IVP Last administered on 08/27/18at 17: 46; Start 08/26/18 at 18:00; Stop 08/28/18 at 00:04; Status DC Doxycycline Hyclate 100 mg/ Dextrose 100 ml @ 50 mls/hr Q12HR IV Last administered on 08/28/18at 08:46; Start 08/27/18 at 09:00 Amino Acids/ Glycerin/ Electrolytes 1,000 ml @ 80 mls/hr [id number] IV Last administered on 08/28/18at 03:27; Start 08/27/18 at 10:00 Ondansetron HCl (Zofran) 4 mg 1X ONCE IV Last administered on 08/27/18at 09:30 ; Start 08/27/18 at 09:30; Stop 08/27/18 at 09:32; Status DC Hydralazine HCl (Apresoline Inj) 20 mg PRN Q4HRS PRN IVP ELEVATED BP, SEE COMMENTS Last administered on 08/28/18at 16:01; Start 08/27/18 at 16:45 Trazodone HCl (Desyrel) 100 mg 1X ONCE PO ; Start 08/27/18 at 20:00; Stop at 20:01; Status Cancel Haloperidol Lactate (Haldol Inj) 10 mg PRN Q4HRS PRN IVP AGITATION Last administered on 08/28/18at 05:17; Start 08/27/18 at 21:00 Enalaprilat (Vasotec Inj) 2.5 mg Q6HRS IVP Last administered on 08/28/18at 13: 23; Start 08/28/18 at 00:04 Active Scripts Active Reported Warfarin Sodium 1 Mg Tablet 12.5 Mg PO QTUTHSA Warfarin Sodium 5 Mg Tablet 10 Mg PO QMWF Proair Hfa Inhaler (Albuterol Sulfate) 8.5 Gm Hfa.aer.ad 1 Puff INH PRN Q6HRS PRN Symbicort 80-4.5 Mcg Inhaler (Budesonide/Formoterol Fumarate) 10.2 Gm Hfa.aer.ad 2 Puff IH BID Spiriva (Tiotropium [place]) 18 Mcg Cap.w.dev 1 Cap IH DAILY Losartan Potassium 100 Mg Tablet 100 Mg PO DAILYWSUP Vital Signs Vital Signs Date Time Temp Pulse Resp B/P (MAP) Pulse Ox O2 Delivery O2 Flow Rate FiO2 08/28/18 16:01 103 183/83 08/28/18 16:00 Nasal Cannula 3.0 08/28/18 15:50 98.3 28 100 98.3 Labs Laboratory Tests Test 08/27/18 08:00 08/27/18 10:35 08/27/18 14:00 08/28/18 10:28 O2 Saturation 97 % (92-99) 90 % (92-99) Arterial Blood pH 7.42 (7.35-7.45) 7.38 (7.35-7.45) Arterial Blood pCO2 at Patient Temp 57 mmHg (35-46) 57 mmHg (35-46) Arterial Blood pO2 at Patient Temp 101 mmHg (65-108) 63 mmHg (65-108) Arterial Blood HCO3 36 mmol/L (21-28) 32 mmol/L (21-28) Arterial Blood Base Excess 10 mmol/L (-3-3) 6 mmol/L (-3-3) FiO2 30 28 White Blood Count 5.8 x10^3/uL (4.0-11.0) 9.9 x10^3/uL (4.0-11.0) Red Blood Count 4.04 x10^6/uL (4.30-5.70) 3.91 x10^6/uL (4.30-5.70) Hemoglobin 8.3 g/dL (13.0-17.5) 8.3 g/dL (13.0-17.5) Hematocrit 27.4 % (39.0-53.0) 27.4 % (39.0-53.0) Mean Corpuscular Volume 68 fL (79-100) 70 fL (79-100) Mean Corpuscular Hemoglobin 21 pg (25-35) 21 pg (25-35) Mean Corpuscular Hemoglobin Concent 30 g/dL (31-37) 30 g/dL (31-37) Red Cell Distribution Width 25.5 % (11.5-14.5) 25.5 % (11.5-14.5) Platelet Count 201 x10^3/uL (140-400) 252 x10^3/uL (140-400) Neutrophils (%) (Auto) 79 % (31-73) Lymphocytes (%) (Auto) 11 % (24-48) Monocytes (%) (Auto) 10 % (0-9) Eosinophils (%) (Auto) 0 % (0-3) Basophils (%) (Auto) 0 % (0-3) Neutrophils # (Auto) 4.6 x10^3uL (1.8-7.7) Lymphocytes # (Auto) 0.6 x10^3/uL (1.0-4.8) Monocytes # (Auto) 0.6 x10^3/uL (0.0-1.1) Eosinophils # (Auto) 0.0 x10^3/uL (0.0-0.7) Basophils # (Auto) 0.0 x10^3/uL (0.0-0.2) Sodium Level 142 mmol/L (136-145) 144 mmol/L (136-145) Potassium Level 4.4 mmol/L (3.5-5.1) 4.6 mmol/L (3.5-5.1) Chloride Level 102 mmol/L (98-107) 103 mmol/L (98-107) Carbon Dioxide Level 35 mmol/L (21-32) 36 mmol/L (21-32) Anion Gap 5 (6-14) 5 (6-14) Blood Urea Nitrogen 22 mg/dL (8-26) 26 mg/dL (8-26) Creatinine 1.1 mg/dL (0.7-1.3) 1.2 mg/dL (0.7-1.3) Estimated GFR (Cockcroft-Gault) 68.3 61.8 BUN/Creatinine Ratio 20 (6-20) Glucose Level 200 mg/dL (70-99) 148 mg/dL (70-99) Calcium Level 8.7 mg/dL (8.5-10.1) 9.0 mg/dL (8.5-10.1) Total Bilirubin 0.6 mg/dL (0.2-1.0) Aspartate Amino Transf (AST/SGOT) 20 U/L (15-37) Alanine Aminotransferase (ALT/SGPT) 26 U/L (16-63) Alkaline Phosphatase 42 U/L (46-116) Total Protein 6.8 g/dL (6.4-8.2) Albumin 2.7 g/dL (3.4-5.0) Albumin/Globulin Ratio 0.7 (1.0-1.7) Laboratory Tests Test 08/28/18 10:28 White Blood Count 9.9 x10^3/uL (4.0-11.0) Red Blood Count 3.91 x10^6/uL (4.30-5.70) Hemoglobin 8.3 g/dL (13.0-17.5) Hematocrit 27.4 % (39.0-53.0) Mean Corpuscular Volume 70 fL (79-100) Mean Corpuscular Hemoglobin 21 pg (25-35) Mean Corpuscular Hemoglobin Concent 30 g/dL (31-37) Red Cell Distribution Width 25.5 % (11.5-14.5) Platelet Count 252 x10^3/uL (140-400) Sodium Level 144 mmol/L (136-145) Potassium Level 4.6 mmol/L (3.5-5.1) Chloride Level 103 mmol/L (98-107) Carbon Dioxide Level 36 mmol/L (21-32) Anion Gap 5 (6-14) Blood Urea Nitrogen 26 mg/dL (8-26) Creatinine 1.2 mg/dL (0.7-1.3) Estimated GFR (Cockcroft-Gault) 61.8 Glucose Level 148 mg/dL (70-99) Calcium Level 9.0 mg/dL (8.5-10.1) Allergies Allergies Coded Allergies Type Severity Reaction Last Updated Verified Iodinated Contrast- Oral and IV Dye Allergy Severe Shortness of Air 07/29/18 Yes Disposition/Orders: D/C to Another Facility COLLIN ESQUEDA MD Aug 28, 2018 16:52
[2018-08-29 13:12] LABS: HISTOPLASMA AG URINE <0.5 (<0.5 ng/mL)
== END 2018-08-28 16:34 | DRG 189 ==
LOC: ER 15:56 → 5 NORTH 17:32 → 6 SOUTH 08-19 23:30 → 1 WEST ICU 08-22 13:07
PROVIDERS: ADMIT Family Medicine; ATTEND Family Medicine
PROC: 30233N1 Transfusion of Nonautologous Red Blood Cells into Peripheral Vein, Percutaneous Approach (ICD-10-PCS; 2018-08-18)
PROC: 5A09457 Assistance with Respiratory Ventilation, 24-96 Consecutive Hours, Continuous Positive Airway Pressure (ICD-10-PCS; principal; 2018-08-22)
PROC: 5A09357 Assistance with Respiratory Ventilation, Less than 24 Consecutive Hours, Continuous Positive Airway Pressure (ICD-10-PCS; 2018-08-26)
PROC: 5A09357 Assistance with Respiratory Ventilation, Less than 24 Consecutive Hours, Continuous Positive Airway Pressure (ICD-10-PCS; 2018-08-27)
PROC: 5A09357 Assistance with Respiratory Ventilation, Less than 24 Consecutive Hours, Continuous Positive Airway Pressure (ICD-10-PCS; 2018-08-28)
DX: J96.21 Acute and chronic respiratory failure with hypoxia (principal); G93.41 Metabolic encephalopathy; J18.9 Pneumonia, unspecified organism; D68.2 Hereditary deficiency of other clotting factors; K50.90 Crohn's disease, unspecified, without complications; J44.1 Chronic obstructive pulmonary disease with (acute) exacerbation; J44.0 Chronic obstructive pulmonary disease with (acute) lower respiratory infection; J96.22 Acute and chronic respiratory failure with hypercapnia; E66.9 Obesity, unspecified; K21.9 Gastro-esophageal reflux disease without esophagitis; N20.0 Calculus of kidney; D50.9 Iron deficiency anemia, unspecified; I10 Essential (primary) hypertension; I87.2 Venous insufficiency (chronic) (peripheral); Z86.718 Personal history of other venous thrombosis and embolism; Z87.442 Personal history of urinary calculi; Z79.01 Long term (current) use of anticoagulants; Z91.041 Radiographic dye allergy status; Z87.891 Personal history of nicotine dependence; Z80.9 Family history of malignant neoplasm, unspecified; Z86.711 Personal history of pulmonary embolism; Z99.81 Dependence on supplemental oxygen; Z79.899 Other long term (current) drug therapy; Z68.32 Body mass index [BMI] 32.0-32.9, adult; Z87.11 Personal history of peptic ulcer disease; Z90.49 Acquired absence of other specified parts of digestive tract
CPT/HCPCS: 36415; 36600; 71045; 71250; 74022; 80048; 80053; 80202; 81001; 82550; 82728; 82805; 83540; 83550; 83735; 83880; 84145; 84484; 85007; 85014; 85018; 85025; 85027; 85610; 86850; 86900; 86901; 86920; 87040; 87070; 87086; 87205; 87385; 87449; 87641; 87804; 87899; 93005; 93306; 93970; 94640; 94660; 94760; 96372; C9113; J0360; J1450; J1630; J1650; J1756; J1940; J1956; J2020; J2060; J2405; J2543; J2920; J2930; J3370; J3490; J7040; J7050; J7613; J7620; J7626; J8540; P9016; 97110; 97116; 97530; 99285-25; J7030

== ENCOUNTER → 2019-06-02 | Outpatient (CLI) | payer MEDICARE ==
[2018-08-28 16:01] VITALS: BP 183/83
[~2019-06-02] MED LIST changes: +AMLO5TAB10 PO; +ASPI-630 PO; +CLON1PAT TD; +COLE1TAB2 PO; +FERR325T14 PO; +LOSA-73 PO; +METO25TA4 PO; +MIRT15TA3 PO; +MULT-658 PO; +PRED2.5T PO; +WARF-31 PO; +WARF1TAB69 PO
--- NOTE | 2019-06-02 16:13 | KCIC ---
EXAM: Thoracic spine, 3 views. HISTORY: Pain. COMPARISON: CT dated 08/26/2018. FINDINGS: 3 views of the thoracic spine are obtained. There is thoracic dextroscoliosis. There is a mild T9 compression fracture. There is degenerative endplate remodeling throughout the thoracic spine and majority of the cervical spine. IMPRESSION: 1. Mild T9 wedge compression fracture, new compared to a CT dated 08/26/2018. 2. Multilevel degenerative change throughout the spine and mild thoracic scoliosis. Electronically signed by: Tanisha Cain MD (06/02/2019 4:11 PM) [place] [id number]
== END | disposition home or self-care (01) ==
LOC: KCIC 09:25
PROVIDERS: ATTEND Internal Medicine
DX: M48.54XA Collapsed vertebra, not elsewhere classified, thoracic region, initial encounter for fracture (principal); M41.84 Other forms of scoliosis, thoracic region; M47.894 Other spondylosis, thoracic region
CPT/HCPCS: 72072

== ENCOUNTER → 2019-06-03 | Outpatient (CLI) | payer MEDICARE ==
[2018-08-28 16:01] VITALS: BP 183/83
[~2019-06-03] MED LIST changes: -AMLO5TAB10 PO; -ASPI-630 PO; -CLON1PAT TD; -COLE1TAB2 PO; -FERR325T14 PO; -LOSA-73 PO; -METO25TA4 PO; -MIRT15TA3 PO; -MULT-658 PO; -PRED2.5T PO
--- NOTE | 2019-06-03 14:59 | KCIC ---
EXAM: Dual energy x-ray absorptiometry (DEXA). HISTORY: Long-term steroid use. COMPARISON: None. TECHNIQUE: Dual energy x-ray absorptiometry of the lumbar spine and left hip was performed. Calculation of bone mineral density based on standard deviations above or below the expected young adult normal value (T-score) was completed. FINDINGS: The average bone mineral density in the 1st through 4th lumbar vertebrae is 0.991 g/cmxcm, corresponding with a T-score of -0.9. The average total bone mineral density in the left hip is 1.095 g/cmxcm, corresponding with a T-score of 0.4. IMPRESSION: Normal bone mineral density. Note: Definitions established by the [employer]: 1. Normal: T-score is -1.0 or above. 2. Osteopenia: T-score is between -1.0 and -2.5 . 3. Osteoporosis: T-score is -2.5 or below. Electronically signed by: Tanisha Cain MD (06/03/2019 2:56 PM) [place] [id number]
== END | disposition home or self-care (01) ==
LOC: KCIC DEXA 11:19
PROVIDERS: ATTEND Internal Medicine
DX: M81.8 Other osteoporosis without current pathological fracture (principal); K90.9 Intestinal malabsorption, unspecified; Z79.52 Long term (current) use of systemic steroids
CPT/HCPCS: 77080

== ENCOUNTER → 2019-06-11 | Outpatient (CLI) | payer MEDICARE ==
[2018-08-28 16:01] VITALS: BP 183/83
[~2019-06-11] MED LIST changes: +AMLO5TAB10 PO; +ASPI-630 PO; +CLON1PAT TD; +COLE1TAB2 PO; +FERR325T14 PO; +LOSA-73 PO; +METO25TA4 PO; +MIRT15TA3 PO; +MULT-658 PO; +PRED2.5T PO
--- NOTE | 2019-06-11 15:06 | KCIC ---
MR thoracic spine without contrast 06/11/2019 INDICATION: T9 compression fracture. COMPARISON: Thoracic spine radiograph 06/02/2019. TECHNIQUE: Multiplanar, multisequence MR imaging of the thoracic spine was performed without intravenous contrast. FINDINGS: There is dextro convex scoliosis of the thoracic spine with apex dextrocurvature at T10-T11. There is a superior plate compression fracture at T9 with 25 percent height loss. Minimal endplate edema is noted involving the inferior endplate of T8 without significant height loss, likely reactive. Mild disc height loss is identified at T8-T9, T9-T10 and T10-T11 with disc desiccation. Inferior endplate Schmorl's node is identified at T8. Disc bulges are identified at these levels. There is mild right-sided neuroforaminal stenosis at T8-T9. There is mild spinal canal stenosis at T9-T10 without cord compression or cord signal alteration. Thoracic spinal cord signal intensity is normal in all sequences. Posterior ligamentous complex is intact. No prevertebral edema. Spinal soft tissue hematoma. Visualized portions of the upper abdomen appear intact. Visualized portions of the lungs appear clear. Thoracic aorta is normal in caliber. IMPRESSION: 1. Acute superior plate compression fracture at T9 with 25 percent height loss and no significant retropulsion. No epidural hematoma or paraspinal soft tissue abnormality. No posterior ligamentous injury. 2. There is likely reactive endplate edema involving the inferior endplate of T8 without significant height loss. Inferior endplate Schmorl's node is identified at T8. Electronically signed by: Sailaja Clemente MD (06/11/2019 3:04 PM) [facility]
== END | disposition home or self-care (01) ==
LOC: KCIC MRI 12:44
PROVIDERS: ATTEND Internal Medicine
DX: S22.070A Wedge compression fracture of T9-T10 vertebra, initial encounter for closed fracture (principal); M51.44 Schmorl's nodes, thoracic region; M41.84 Other forms of scoliosis, thoracic region; X58.XXXA Exposure to other specified factors, initial encounter; Y93.89 Activity, other specified; Y92.89 Other specified places as the place of occurrence of the external cause; Y99.8 Other external cause status
CPT/HCPCS: 72146

== ENCOUNTER 2019-06-25 11:12 | Day surgery (SDC) | payer MEDICARE ==
[~2019-06-25] VITALS: Ht 172.7 cm; Wt 117.9 kg
[~2019-06-25 11:12] MED LIST changes: -AMLO5TAB10 PO; -ASPI-630 PO; -CLON1PAT TD; -COLE1TAB2 PO; -FERR325T14 PO; +IV RINGERS,LACTATED 1000ML 1,000 ML IV SCH; -LOSA-73 PO; -METO25TA4 PO; -MIRT15TA3 PO; -MULT-658 PO; -PRED2.5T PO
[2019-06-25] MEDS ORDERED: FERR325T14 PO (11:35)
[2019-06-25] MEDS ORDERED: LOSA-73 PO (11:35)
[2019-06-25] MEDS ORDERED: PRED2.5T PO (11:35)
[2019-06-25] MEDS ORDERED: METO25TA4 PO (11:35)
[2019-06-25] MEDS ORDERED: COLE1TAB2 PO (11:35)
[2019-06-25] MEDS ORDERED: CLON1PAT TD (11:35)
[2019-06-25] MEDS ORDERED: ASPI-630 PO (11:35)
[2019-06-25] MEDS ORDERED: MIRT15TA3 PO (11:35)
[2019-06-25] MEDS ORDERED: MULT-658 PO (11:35)
[2019-06-25] MEDS ORDERED: AMLO5TAB10 PO (11:35)
[2019-06-25 11:48] LABS: BASO # 0.1 x10^3/uL (0.0-0.2); BASO % 1 % (0-3); EOS # 0.1 x10^3/uL (0.0-0.7); EOS % 1 % (0-3); HEMATOCRIT 41.5 % (39.0-53.0); HEMOGLOBIN 13.2 g/dL (13.0-17.5); LYMPH # 2.3 x10^3/uL (1.0-4.8); LYMPH % 25 % (24-48); MEAN CORPUSCULAR HEMOGLOBIN 28 pg (25-35); MEAN CORPUSCULAR HGB CONC 32 g/dL (31-37); MEAN CORPUSCULAR VOLUME 89 fL (79-100); MONO # 0.7 x10^3/uL (0.0-1.1); MONO % 8 % (0-9); NEUT % 65 % (31-73); PLATELET COUNT 273 x10^3/uL (140-400); RED BLOOD COUNT 4.68 x10^6/uL (4.30-5.70); RED CELL DISTRIBUTION WIDTH 13.8 % (11.5-14.5); WHITE BLOOD COUNT 9.2 x10^3/uL (4.0-11.0)
[2019-06-25 11:52] VITALS: BP 145/81
[2019-06-25 11:58] LABS: PROTHROMBIN TIME PATIENT 12.3 SEC (11.7-14.0)
[2019-06-25] MEDS ORDERED: MIDAZOLAM HCL/PF 2 MG/2 ML VIAL. ONE ×2 (12:24)
[2019-06-25] MEDS ORDERED: KETOROLAC 30 MG/ML VIAL. ONE (12:24)
[2019-06-25] MEDS ORDERED: fentaNYL PF VIAL 100 MCG/2 ML VIAL ONE (12:26)
[2019-06-25] MEDS ORDERED: KETAMINE HCL IN NACL, ISO-OSM 50 MG/5 ML SYRINGE ONE (12:26)
[2019-06-25] MEDS ORDERED: PROPOFOL 0 ML IV ONE (12:26)
[2019-06-25] MEDS ORDERED: LIDOCAINE WITH 8.4% SOD BICARB 3 ML DISP.SYRIN. ONE (12:42)
[2019-06-25] MEDS ORDERED: ceFAZolin 2GM PREMIX 2 GM/50 ML BAG IV ONE (13:00)
[2019-06-25] MEDS ORDERED: LIDOCAINE WITH 8.4% SOD BICARB 3 ML DISP.SYRIN. INJ ONE (13:45)
--- NOTE | 2019-06-25 14:49 | RAD ---
Fluoroscopically guided vertebroplasty 06/25/2019 Indication:Pathologic T9 compression fracture (bone demineralization secondary to chronic steroid use/Crohn's disease). Fluoro time:10.9 minutes Dose area product: 60 Gycm2 Consent: The risks and benefits of the procedure were discussed with the patient. Informed consent was obtained. The patient was brought to the fluoroscopy suite and placed in the prone position. A timeout procedure was performed. Preprocedural antibiotics were administered. Procedure: The overlying skin was prepped and draped in the usual sterile fashion. All elements of maximal sterile barrier technique including the use of a cap, mask, sterile gown, sterile gloves, large sterile sheet, appropriate hand hygiene, and 2% chlorhexidine for cutaneous antisepsis (or acceptable alternative antiseptic per current guidelines) were followed for this procedure. Using a right transpedicular approach, and direct fluoroscopic guidance, a trocar needle was advanced to the posterior third of the targeted T9 vertebral body. A curved cement delivery needle was advanced into the contralateral vertebral body. Contrast opacified polymethylmethacrylate was then very slowly and carefully introduced through the vertebral augmentation needle, using strict fluoroscopic control. Once adequate filling had been achieved the needles were removed and manual pressure was held. No significant extravasation or complication was identified. Sterile dressing was applied. Patient tolerated the procedure well, without apparent complication. Impression: Fluoroscopically guided T9 vertebral augmentation
[2019-06-25 16:00] VITALS: BP 130/70
== END 2019-06-25 16:05 | disposition home or self-care (01) ==
LOC: SURG 11:12
PROVIDERS: ATTEND Anesthesiology
DX: M48.54XA Collapsed vertebra, not elsewhere classified, thoracic region, initial encounter for fracture (principal); K50.90 Crohn's disease, unspecified, without complications; Z79.899 Other long term (current) drug therapy; Z79.01 Long term (current) use of anticoagulants; Z79.52 Long term (current) use of systemic steroids
CPT/HCPCS: 22510; 36415; 85025; 85610; 85730; C1713; C1725; J0696; J2250; J3010; J1885; J2704

== ENCOUNTER 2021-02-25 08:55 | Emergency (ER) | payer MEDICARE ==
[~2021-02-25] VITALS: Ht 180.3 cm; Wt 122.0 kg
[~2021-02-25 08:55] MED LIST changes: +AMLO-186 PO; +ASPI-630 PO; +CLON1PAT TD; +COLE1TAB2 PO; +FERR325T14 PO; -IV RINGERS,LACTATED 1000ML 1,000 ML IV SCH; +LOSA-73 PO; +METO25TA4 PO; +MIRT-7 PO; +MULT-658 PO; +PRED2.5T PO
[2021-02-25 09:26] LABS: BILIRUBIN,URINE NEGATIVE (NEG); CLARITY,URINE CLEAR; COLOR,URINE YELLOW; NITRITE,URINE NEGATIVE (NEG); PROTEIN,URINE NEGATIVE (NEG-TRACE); UROBILINOGEN,URINE 0.2 mg/dL (0.2 mg/dL)
[2021-02-25 09:38] LABS: BACTERIA,URINE FEW /HPF (0-FEW); RBC,URINE 20-40 /HPF (0-2)
--- NOTE | 2021-02-25 09:43 | PHYS DOC ---
Past Medical History Past Medical History: COPD, DVT, Gallstones, High Cholesterol, Hypertension, Kidney Stone Additional Past Medical Histor: DVT'S Past Surgical History: Other Additional Past Surgical Histo: COLON RESECTION Smoking Status: Former Smoker Alcohol Use: None Drug Use: None General Adult EDM: Chief Complaint: ABDOMINAL PAIN HPI: HPI: Patient is a 65 year old male who presented to ER due to left abdominal pain started last night. Patient has history of kidney stones and Crohn's disease. Patient denies any nausea vomiting, no fever, patient denies any chest pain, no trouble breathing. Patient denies any urinary symptoms, no blood in his urine. Patient does not feel like this is his Crohn's flareup. Patient was a former smoker, he quit smoking 2 years ago. Review of Systems: Review of Systems: Constitutional: Denies fever or chills. [] Eyes: Denies change in visual acuity. [] HENT: Denies nasal congestion or sore throat. [] Respiratory: Denies cough or shortness of breath. [] Cardiovascular: Denies chest pain or edema. [] GI: Positive for left abdominal pain, no nausea vomiting, no diarrhea. : Denies dysuria. [] Musculoskeletal: Denies back pain or joint pain. [] Integument: Denies rash. [] Neurologic: Denies headache, focal weakness or sensory changes. [] Endocrine: Denies polyuria or polydipsia. [] Lymphatic: Denies swollen glands. [] Psychiatric: Denies depression or anxiety. [] Heart Score: C/O Chest Pain: N/A Risk Factors: Risk Factors: DM, Current or recent (<one month) smoker, HTN, HLP, family history of CAD, obesity. Risk Scores: Score 0 - 3: 2.5% MACE over next 6 weeks - Discharge Home Score 4 - 6: 20.3% MACE over next 6 weeks - Admit for Clinical Observation Score 7 - 10: 72.7% MACE over next 6 weeks - Early Invasive Strategies Allergies: Allergies: Allergies Coded Allergies Type Severity Reaction Last Updated Verified Iodinated Contrast Media Allergy Severe Shortness of Air 07/29/18 Yes Physical Exam: PE: Constitutional: Well developed, well nourished, no acute distress, non-toxic appearance. [] HENT: Normocephalic, atraumatic, bilateral external ears normal, oropharynx moist, no oral exudates, nose normal. [] Eyes: PERRLA, EOMI, conjunctiva normal, no discharge. [] Neck: Normal range of motion, no tenderness, supple, no stridor. [] Cardiovascular:Heart rate regular rhythm, no murmur [] Lungs & Thorax: Bilateral breath sounds clear to auscultation [] Abdomen: Bowel sounds normal, soft, LEFT SIDE ABDOMEN IS tender TO PALPATION, THERE SOME SKIN BRUISE ON THE LEFT PERIUMBILICAL AREA, no masses, no pulsatile masses. [] Skin: Warm, dry, no erythema, no rash. [] Back: No tenderness, no CVA tenderness. [] Extremities: No tenderness, no cyanosis, no clubbing, ROM intact, no edema. [] Neurologic: Alert and oriented X 3, normal motor function, normal sensory function, no focal deficits noted. [] Psychologic: Affect normal, judgement normal, mood normal. [] Current Patient Data: Labs: Laboratory Tests Test 02/25/21 08:58 Urine Collection Type Unknown Urine Color Yellow Urine Clarity Clear Urine pH 5.0 (<5.0-8.0) Urine Specific [place] 1.020 (1.000-1.030) Urine Protein Negative mg/dL (NEG-TRACE) Urine Glucose (UA) Negative mg/dL (NEG) Urine Ketones (Stick) Negative mg/dL (NEG) Urine Blood Moderate (NEG) Urine Nitrite Negative (NEG) Urine Bilirubin Negative (NEG) Urine Urobilinogen Dipstick 0.2 mg/dL (0.2 mg/dL) Urine Leukocyte Esterase Negative (NEG) Urine RBC 20-40 /HPF (0-2) Urine WBC 1-4 /HPF (0-4) Urine Squamous Epithelial Cells Few /LPF Urine Transitional Epithelial Cells Few /LPF Urine Renal Epithelial Cells Few /LPF Urine Bacteria Few /HPF (0-FEW) Urine Mucus Marked /LPF EKG: EKG: [] Radiology/Procedures: Radiology/Procedures: [facility] [address] [place] [address] IMAGING REPORT Signed PATIENT: CANDICE AMARALCOUNT: [id number] : 1955 LOCATION: ER AGE: 65 SEX: M EXAM STATUS: REG ER ORD. PHYSICIAN: YANICK GARRETT DO REASON: left side flank pain PROCEDURE: CT ABDOMEN PELVIS WO CONTRAST PQRS Compliance Statement: One or more of the following individualized dose reduction techniques were utilized for this examination: 1. Automated exposure control 2. Adjustment of the mA and/or kV according to patient size 3. Use of iterative reconstruction technique Exam performed: CT scan of the abdomen and pelvis without contrast. Clinical Indication: Reason: left side flank pain / Spl. Instructions: / History: Date of Service: 02/25/2021 10:21 AM. Comparison: CT abdomen pelvis from 02/05/2008 Technique: Contiguous helical acquisitions are obtained through the abdomen and pelvis without IV contrast. Sagittal and coronal reformatted images are obtained and reviewed. CT abdomen and pelvis findings: Linear left basilar atelectasis. The visualized heart is normal. Distended gallbladder with cholelithiasis. There is a obstructing 1.2 cm calculus was in the proximal left ureter with left perinephric and periureteric stranding with inflammatory stranding extending into the left paracolic gutter.. There is also a nonobstructing 2 cm cavernous in the left inferior renal pole with an adjacent smaller 6 mm calculus. There are additional small 2 to 3 mm nonobstructing calculus in the right kidney. Lack of IV contrast limits evaluation of abdominal viscera, however the liver, spleen, pancreas, both adrenal glands and right kidney appears grossly normal. Aorta is normal in caliber demonstrating mild atheromatous calcification. The small and large bowel loops are nondilated and unremarkable. The urinary bladder is decompressed and contains calcifications in the dependent aspect of the urinary bladder perhaps recently passed calculi or bladder calculi. The prostate gland is mildly enlarged. Several vesicles and rectum appear normal. Interrogation of bone windows is grossly unremarkable. Impression: 1.2 cm obstructing calculus in the proximal left ureter with diffuse perinephric and proximal periureteric stranding. Nonobstructing bilateral renal calculi. Bladder calculi or calcification. Cholelithiasis Electronically signed by: Annemarie Shabazz MD (02/25/2021 11:00 AM) [facility] DICTATED and SIGNED BY: ANNEMARIE SHABAZZ MD DATE: 02/25/21 [id number] 0 Course & Med Decision Making: Course & Med Decision Making Pertinent Labs and Imaging studies reviewed. (See chart for details) Patient is a 65-year-old male who present to ER due to left flank pain, he was found to have a 1.2 cm left proximal ureteral stone. Will need to be transferred to another hospital for urology care because there is no urology service at this hospital. Patient would like to be transferred to [facility]. Discussed with Dr. Kendra Roberto, hospitalist at [facility], agreed to accept patient for transfer there. Dragon Disclaimer: Dragon Disclaimer: This electronic medical record was generated, in whole or in part, using a voice recognition dictation system. Departure Departure Impression: Primary Impression: Kidney stone on left side Disposition: 02 [facility] TERM [facility] (Transferred to [facility], accepted by Dr. Kendra Roberto) Condition: IMPROVED Referrals: LIBERTY MARTINEZ MD (PCP) YANICK GARRETT DO Feb 25, 2021 09:43
[2021-02-25 09:55] LABS: BASO # 0.1 x10^3/uL (0.0-0.2); BASO % 1 % (0-3); EOS # 0.1 x10^3/uL (0.0-0.7); EOS % 1 % (0-3); HEMATOCRIT 39.1 % (39.0-53.0); HEMOGLOBIN 12.1 g/dL (13.0-17.5); LYMPH # 1.1 x10^3/uL (1.0-4.8); LYMPH % 9 % (24-48); MEAN CORPUSCULAR HEMOGLOBIN 27 pg (25-35); MEAN CORPUSCULAR HGB CONC 31 g/dL (31-37); MEAN CORPUSCULAR VOLUME 88 fL (79-100); MONO # 1.2 x10^3/uL (0.0-1.1); MONO % 10 % (0-9); NEUT # 9.7 x10^3/uL (1.8-7.7); NEUT % 80 % (31-73); PLATELET COUNT 255 x10^3/uL (140-400); RED BLOOD COUNT 4.44 x10^6/uL (4.30-5.70); RED CELL DISTRIBUTION WIDTH 14.3 % (11.5-14.5); WHITE BLOOD COUNT 12.2 x10^3/uL (4.0-11.0)
[2021-02-25] MEDS ORDERED: fentaNYL PF VIAL 100 MCG/2 ML VIAL IVP ONE ×2 (10:00→18:00)
[2021-02-25 10:02] LABS: CALCIUM 9.1 mg/dL (8.5-10.1); CREATININE 1.5 mg/dL (0.7-1.3); GFR 47.3; POTASSIUM 4.1 mmol/L (3.5-5.1)
[2021-02-25 10:08] LABS: ALBUMIN 3.7 g/dL (3.4-5.0); ALBUMIN/GLOBULIN RATIO 1.3 (1.0-1.7); MAGNESIUM 1.5 mg/dL (1.8-2.4); TOTAL BILIRUBIN 0.7 mg/dL (0.2-1.0); TOTAL PROTEIN 6.5 g/dL (6.4-8.2)
[2021-02-25] MEDS ORDERED: MAGNESIUM SULFATE 2GM 50 ML IV ONE ×2 (10:15→11:30)
[2021-02-25] MEDS ORDERED: KETOROLAC 30 MG/ML VIAL. IVP ONE (10:15)
--- NOTE | 2021-02-25 11:03 | RAD ---
PQRS Compliance Statement: One or more of the following individualized dose reduction techniques were utilized for this examinat ion: 1. Automated exposure control 2. Adjustment of the mA and/or kV according to patient size 3. Use of iterative reconstruction technique Exam performed: CT scan of the abdomen and pelvis without contrast. Clinical Indication: Reason: left side flank pain / Spl. Instructions: / History: Date of Service: 02/25/2021 10:21 AM. Comparison: CT abdomen pelvis from 02/05/2008 Technique: Contiguous helical acquisitions are obtained through the abdomen and pelvis without IV con trast. Sagittal and coronal reformatted images are obtained and reviewed. CT abdomen and pelvis findings: Linear left basilar atelectasis. The visualized heart is normal. Distended gallbladder with cholelithiasis. There is a obstructing 1.2 cm calculus was in the proximal left ureter with left perinephric and periureteric stranding with inflammatory stranding extending i nto the left paracolic gutter.. There is also a nonobstructing 2 cm cavernous in the left inferior re nal pole with an adjacent smaller 6 mm calculus. There are additional small 2 to 3 mm nonobstructing calculus in the right kidney. Lack of IV contrast limits evaluation of abdominal viscera, however the liver, spleen, pancreas, both adrenal glands and right kidney appears grossly normal. Aorta is normal in caliber demonstrating mil d atheromatous calcification. The small and large bowel loops are nondilated and unremarkable. The urinary bladder is decompressed and contains calcifications in the dependent aspect of the urinar y bladder perhaps recently passed calculi or bladder calculi. The prostate gland is mildly enlarged. Several vesicles and rectum appear normal. Interrogation of bone windows is grossly unremarkable. Impression: 1.2 cm obstructing calculus in the proximal left ureter with diffuse perinephric and proximal periure teric stranding. Nonobstructing bilateral renal calculi. Bladder calculi or calcification. Cholelithiasis Electronically signed by: Annemarie Shabazz MD (02/25/2021 11:00 AM) [facility]
[2021-02-25 17:40] VITALS: BP 139/81
[2021-02-25] MEDS ORDERED: fentaNYL PF VIAL 100 MCG/2 ML VIAL ONE (17:56)
== END 2021-02-25 18:00 | disposition short-term general hospital (02) ==
LOC: ER 08:55
DX: N20.0 Calculus of kidney (principal); E78.00 Pure hypercholesterolemia, unspecified; I10 Essential (primary) hypertension; J44.9 Chronic obstructive pulmonary disease, unspecified; Z86.718 Personal history of other venous thrombosis and embolism; Z87.891 Personal history of nicotine dependence; Z91.041 Radiographic dye allergy status
CPT/HCPCS: 36415; 74176; 80053; 81001; 83690; 83735; 85025; 96365; 96366; 96375; 96376; 99285; J1885; J3010; J3475